=== PATIENT | male | born 1950 | race Caucasian/White ===

== ENCOUNTER → 2020-11-05 08:16 | Outpatient (REF) | payer MEDICARE, SELFPAY ==
--- NOTE | 2020-11-05 08:30 | CA_ITS ---
Transthoracic Echocardiogram Patient (Last, First, Middle): Telly Silverman, Gender: Male Date of : 1950 Age: 70 Procedure Date: 11/05/2020 Procedure Type: Transthoracic Echocardiogram Location: OP Height: 185.42 cm Weight: 98.43 kg BSA: 2.23 m2 Heart Rate: bpm BP: 134 / 84 mmHg Fire Sprinkler Inspector: MARIA DEL CARMEN Referring MD: Julito Diaz MD Symptoms: I25.10 CAD I10 HTN R06.02 SOB Study Quality: Fair ECG Rhythm: Artifact in EKG Conclusions: - The left ventricular systolic function is normal. The visually estimated ejection fraction is between 55-60%. - There is mild calcification of the aortic valve. - There is mild mitral annular calcification. - There is mild aortic annular dilatation measuring 4.00 cm and mild dilatation of the ascending aorta measuring 3.90 cm. - Small plaque is seen in the sino tubular ridge. Findings Left Ventricle Normal left ventricular cavity size. The left ventricular systolic function is normal. The visually estimated ejection fraction is between 55-60%. There is no evidence of regional wall motion abnormalities. Diastolic function is normal for age. There is mild septal and mild basal asymmetric hypertrophy. Right Ventricle Normal right ventricular cavity size and systolic function. Atria The left atrium is normal in size. The right atrium is normal in size. Aortic Valve There is a normal trileaflet aortic valve. There is mild calcification of the aortic valve. There is no aortic valve stenosis. There is no aortic valve regurgitation. Mitral Valve The mitral valve appears normal. There is mild mitral annular calcification. There is trace mitral valve regurgitation. There is no mitral valve stenosis. Pulmonic Valve The pulmonic valve was not well visualized. Tricuspid Valve Normal tricuspid valve structure. There is trace tricuspid valve regurgitation. The pulmonary artery systolic pressure is normal. Great Vessels The asc aorta is normal in size. There is mild aortic annular dilatation measuring 4.00 cm and mild dilatation of the ascending aorta measuring 3.90 cm. Small plaque is seen in the sino tubular ridge. Venous The inferior vena cava is normal in size and collapses greater than 50% with inspiration. Pericardium/Pleural There is no evidence of pericardial effusion. Prior Study Comparison Changes noted compared to prior study dated: 09/15/2018. See comments on great vessels. Measurements 2D Linear Measurements IVSd: 0.94 0.6-0.9/0.6-1.0 cm LVIDd: 3.93 3.9-5.3/4.2-5.9 cm LVIDd Index: 1.76 2.4-3.2/2.2-3.1 cm/m2 LVIDs: 2.89 2.0-3.6 cm LVPWd: 0.97 0.7-1.1 cm Ao Root: 4.00 2.1-3.5 cm LA Diam: 3.60 2.7-3.8/3.0-4.0 cm LAIDs Index: 1.61 1.5-2.3 cm/m2 LV Mass: 144.34 67-162/88-224 g LV Mass Index: 64.73 43-95/49-115 g/m2 LVOT Diam: 2.30 3.0+(-)1.3 cm 2D Systolic Function EF 4C: 51.50 >55% EF 2C: 51.50 >55% Mitral Valve MV Pk E: 0.88 MV PK A: 0.69 MV Decel Time: 194.00 E/A: 1.30 E'Lateral: 10.70 E'Medial: 8.12 E/E' Med: 10.90 E/E' Lat: 8.30 PHT: 57.00 MVA PHT: 3.86 Decel [place]: 4.56 Aortic Valve AoV Pk Steve: 1.29 AoV Mn Steve: 0.91 AoV VTI: 0.29 AoV Pk Grad: 7.00 Aov Mn Grad: 4.00 SONYA Cont.VTI: 3.20 LVOT LVOT Pk Steve: 1.00 LVOT Mn Steve: 0.65 LVOT VTI: 0.22 LVOT Pk Grad: 4.00 LVOT Mn Grad: 2.00 LVOT Diam: 2.30 LVOT Area: 4.15 Diastolic Function MV Pk E: 0.88 MV Pk A: 0.69 E/A: 1.30 E'Medial: 8.12 E/E' Med: 10.90 E' Laterial: 10.70 E/E' Lat: 8.30 Tricuspid Valve RA Press: 3.00 Great Vessels Aorta Ao Root-2D: 4.00 2.0-3.7 cm Ao Annulus: 4.00 1.4-2.6 cm Ao Asc: 3.90 2.1-3.4 cm Ao Arch: 3.20 Updated in Other Vendor System with Status of Final Julito Diaz MD electronically signed on 11/05/2020 11:21:21 AM with status of Final
== END ==
LOC: HO.CARD 08:16
PROVIDERS: PCP Internal Medicine; Visit Provider Internal Medicine
DX: I25.10 Atherosclerotic heart disease of native coronary artery without angina pectoris (principal); I10 Essential (primary) hypertension; R06.02 Shortness of breath
CPT/HCPCS: 93306

== ENCOUNTER 2020-11-13 09:34 | Outpatient (REF) | payer MEDICARE, SELFPAY ==
[2020-11-13 11:52] LABS: Cholesterol 136 mg/dL; HDL Cholesterol 44 mg/dL; LDL Cholesterol Calculated 77 mg/dl; Triglycerides 75 mg/dL
== END 2020-11-13 09:35 | disposition home or self-care (01) ==
LOC: HO.LAB 09:34
PROVIDERS: PCP Internal Medicine; Referring Provider Internal Medicine; Visit Provider Internal Medicine
DX: I25.10 Atherosclerotic heart disease of native coronary artery without angina pectoris (principal); I10 Essential (primary) hypertension; E78.5 Hyperlipidemia, unspecified; E11.9 Type 2 diabetes mellitus without complications
CPT/HCPCS: 36415; 80061; 93005; 99212

== ENCOUNTER 2021-02-04 10:51 | Outpatient (REF) | payer MEDICARE, SELFPAY ==
[2021-02-04 14:03] LABS: Prostate Specific Antigen 3.22 ng/mL (<0.05-4.0)
== END 2021-02-04 10:52 | disposition home or self-care (01) ==
LOC: HO.LAB 10:51
PROVIDERS: PCP Internal Medicine
DX: Z12.5 Encounter for screening for malignant neoplasm of prostate (principal); R39.15 Urgency of urination; R39.11 Hesitancy of micturition
CPT/HCPCS: 36415; 84153; 99202

== ENCOUNTER → 2021-02-28 08:31 | Outpatient (BNVA) | payer MEDICARE, SELFPAY | PROVIDERS: PCP Internal Medicine | DX: R39.11 Hesitancy of micturition (principal) | CPT/HCPCS: Q3014 ==

== ENCOUNTER 2021-03-25 09:18 | Outpatient (REF) | payer MEDICARE, SELFPAY ==
[2021-03-25 10:51] LABS: Alanine Aminotransferase 24 U/L (0-40); Albumin Level 4.1 g/dL (3.5-5.0); Alkaline Phosphatase 93 U/L (39-117); Anion Gap 9 (12-20); Aspartate Amino Transferase 16 U/L (5-37); Bilirubin Total 0.8 mg/dL (0.0-1.0); Blood Urea Nitrogen 22 mg/dL (9-16); Calcium 9.4 mg/dL (8.4-10.2); Carbon Dioxide 30 mmol/L (22-29); Chloride 105 mmol/L (96-108); Estimated Glomerular Filt Rate > 60; Glucose Fasting 114 mg/dL (60-99); Sodium 140 mmol/L (135-145); Total Protein 6.2 g/dL (6.5-8.0)
[2021-03-25 12:32] LABS: Prostate Specific Antigen Scr 3.38 ng/mL (<0.05-4.0)
== END 2021-03-25 09:19 | disposition home or self-care (01) ==
LOC: HO.LAB 09:18
PROVIDERS: PCP Internal Medicine; Visit Provider Nurse Practitioner Family
DX: Z13.1 Encounter for screening for diabetes mellitus (principal); Z12.5 Encounter for screening for malignant neoplasm of prostate; R35.1 Nocturia
CPT/HCPCS: 36415; 80053; 84153

== ENCOUNTER 2021-07-09 08:50 | Outpatient (REF) | payer MEDICARE, SELFPAY ==
[2021-07-09 09:48] LABS: Cholesterol 138 mg/dL; Glucose Fasting 113 mg/dL (60-99); HDL Cholesterol 42 mg/dL; LDL Cholesterol Calculated 81 mg/dl; Triglycerides 79 mg/dL
== END 2021-07-09 08:51 | disposition home or self-care (01) ==
LOC: HO.LAB 08:50
PROVIDERS: PCP Internal Medicine; Visit Provider Internal Medicine
DX: E11.65 Type 2 diabetes mellitus with hyperglycemia (principal)
CPT/HCPCS: 36415; 80061; 82947

== ENCOUNTER 2021-07-30 10:28 | Outpatient (REF) | payer MEDICARE, SELFPAY | END 2021-07-30 10:29 | disposition home or self-care (01) | LOC: HO.LAB 10:28 | PROVIDERS: PCP Internal Medicine; Visit Provider Internal Medicine | DX: Z20.822 Contact with and (suspected) exposure to COVID-19 (principal); R09.89 Other specified symptoms and signs involving the circulatory and respiratory systems | CPT/HCPCS: U0003; U0005 ==

== ENCOUNTER 2021-08-02 10:50 | Outpatient (REF) | payer MEDICARE, SELFPAY ==
--- NOTE | ~2021-08-02 | XR_ITS ---
EXAMINATION: XR CHEST CLINICAL INFORMATION: Cough. COMPARISON: Previous chest x-ray July 2018 TECHNIQUE: 2 views of the chest were obtained. FINDINGS: The cardiac and mediastinal contours are stable. There is a 1 cm nodular density at the right lung base overlying the right posterior 9th rib. This may represent a nipple shadow. The lungs are clear. There is no pleural effusion or pneumothorax. Bony structures are unremarkable. XR/XR chest 2V IMPRESSION: 1 cm nodular density at the right lung base. Followup chest x-ray with nipple markers recommended. Otherwise unremarkable exam.
== END 2021-08-02 10:51 | disposition home or self-care (01) ==
LOC: HO.XRAY 10:50
PROVIDERS: PCP Internal Medicine; Visit Provider Internal Medicine
DX: R05.9 Cough, unspecified (principal)
CPT/HCPCS: 71046

== ENCOUNTER 2021-08-07 09:17 | Outpatient (REF) | payer MEDICARE, SELFPAY ==
--- NOTE | ~2021-08-07 | XR_ITS ---
EXAMINATION: XR CHEST CLINICAL INFORMATION: Cough COMPARISON: Previous chest x-ray 08/02/2021 TECHNIQUE: 2 views of the chest were obtained. FINDINGS: The cardiac and mediastinal contours are stable. The nodule at the right lung base corresponds to a nipple shadow. The lungs are otherwise clear. There is no pleural effusion or pneumothorax. Bony structures are unremarkable. XR/XR chest 2V IMPRESSION: No evidence for acute disease in the chest.
== END 2021-08-07 09:18 | disposition home or self-care (01) ==
LOC: HO.XRAY 09:17
PROVIDERS: PCP Internal Medicine; Visit Provider Internal Medicine
DX: R05.9 Cough, unspecified (principal)
CPT/HCPCS: 71046

== ENCOUNTER → 2021-09-05 08:37 | Outpatient (BNVA) | payer MEDICARE, SELFPAY | PROVIDERS: PCP Internal Medicine; Visit Provider Urology | DX: R39.11 Hesitancy of micturition (principal); R35.1 Nocturia; N32.0 Bladder-neck obstruction | CPT/HCPCS: 99212 ==

== ENCOUNTER 2021-09-30 09:18 | Outpatient (REF) | payer MEDICARE, SELFPAY ==
[2021-09-30 10:12] LABS: Estimated Average Glucose 105 mg/dL; Hemoglobin A1C 130.6588 umol/L; Hemoglobin A1c % 5.3 %
[2021-09-30 10:22] LABS: Cholesterol 140 mg/dL; Glucose Fasting 107 mg/dL (60-99); HDL Cholesterol 42 mg/dL; LDL Cholesterol Calculated 84 mg/dl; Triglycerides 72 mg/dL
== END 2021-09-30 09:19 | disposition home or self-care (01) ==
LOC: HO.LAB 09:18
PROVIDERS: PCP Internal Medicine; Visit Provider Internal Medicine
DX: Z00.00 Encounter for general adult medical examination without abnormal findings (principal); E11.65 Type 2 diabetes mellitus with hyperglycemia
CPT/HCPCS: 36415; 80061; 82947; 83036

== ENCOUNTER → 2021-11-14 09:48 | Outpatient (BNVA) | payer MEDICARE, SELFPAY | PROVIDERS: PCP Internal Medicine; Referring Provider Internal Medicine; Visit Provider Internal Medicine | DX: I25.10 Atherosclerotic heart disease of native coronary artery without angina pectoris (principal); I77.810 Thoracic aortic ectasia; I10 Essential (primary) hypertension; E78.5 Hyperlipidemia, unspecified | CPT/HCPCS: 93005; 99212 ==

== ENCOUNTER → 2022-03-14 08:15 | Outpatient (BNVA) | payer MEDICARE, SELFPAY | PROVIDERS: PCP Internal Medicine; Visit Provider Urology | DX: N32.0 Bladder-neck obstruction (principal); R35.1 Nocturia | CPT/HCPCS: 51798; 99212 ==

== ENCOUNTER → 2022-11-03 07:45 | Outpatient (REF) | payer MEDICARE, SELFPAY ==
--- NOTE | 2022-11-03 07:48 | CA_ITS ---
Transthoracic Echocardiogram Patient (Last, First, Middle): Telly Silverman, Gender: Male Date of : 1950 Age: 72 Procedure Date: 11/03/2022 Procedure Type: Transthoracic Echocardiogram Location: OP Height: 185.42 cm Weight: 93.9 kg BSA: 2.18 m2 Heart Rate: 75 bpm BP: 134 / 82 mmHg Lodging Facilities Manager: TYRA Referring MD: Julito Diaz MD Roll Shop Supervisor: Keith Sharpe MD Symptoms: I77.810 - Thoracic aortic ectasia Study Quality: Adequate ECG Rhythm: Sinus Conclusions: - 1. Normal LV systolic function with impaired relaxation filling pattern 2. Normal cardiac valvular Dopplers 3. Normal RV systolic pressure 4. Mildly dilated ascending aorta at 4.1 cm 5. No pericardial effusion Findings Left Ventricle Normal left ventricular size, thickness, and systolic function. The visually estimated ejection fraction is between 55-60%. Spectral Doppler is indicative of an impaired relaxation filling pattern. E/E prime ratio is between 8 and 15 consistent with indeterminate filling pressures. Right Ventricle Normal right ventricular cavity size and systolic function. Atria Both atria are normal in size. Interatrial shunt cannot be excluded. Aortic Valve There is mild calcification of the aortic valve. There is mild thickening of the aortic valve. There is no aortic valve stenosis. There is no aortic valve regurgitation. Mitral Valve There is mild anterior and posterior mitral leaflet thickening. There is trace mitral valve regurgitation. There is no mitral valve stenosis. Pulmonic Valve The pulmonic valve is likely normal. Tricuspid Valve Normal tricuspid valve structure. There is trace tricuspid valve regurgitation. The right ventricular systolic pressure is normal. The right ventricular systolic pressure is 18 mmHg. Normal right atrial pressure. There is no evidence of pulmonary hypertension. Great Vessels The pulmonary artery was not well visualized. There is mild dilatation of the ascending aorta measuring 4.10 cm. Venous The inferior vena cava is normal in size and collapses greater than 50% with inspiration. Pericardium/Pleural There is no evidence of pericardial effusion. Prior Study Comparison No significant change compared to prior study dated: 11/05/2020. Measurements 2D Linear Measurements IVSd: 0.73 0.6-0.9/0.6-1.0 cm LVIDd: 5.05 3.9-5.3/4.2-5.9 cm LVIDd Index: 2.32 2.4-3.2/2.2-3.1 cm/m2 LVIDs: 3.63 2.0-3.6 cm LVPWd: 0.63 0.7-1.1 cm LA Diam: 3.70 2.7-3.8/3.0-4.0 cm LAIDs Index: 1.70 1.5-2.3 cm/m2 LV Mass: 139.97 67-162/88-224 g LV Mass Index: 64.21 43-95/49-115 g/m2 LVOT Diam: 2.50 3.0+(-)1.3 cm 2D Systolic Function EF 4C: 54.30 >55% EF 2C: 64.80 >55% EF BiP: 59.20 >55% Mitral Valve MV Pk E: 0.72 MV PK A: 0.62 MV Decel Time: 190.00 E/A: 1.20 E'Lateral: 8.16 E'Medial: 7.94 E/E' Med: 9.10 E/E' Lat: 8.80 PHT: 56.00 MVA PHT: 3.93 Decel [place]: 3.79 Aortic Valve AoV Pk Steve: 1.23 AoV Pk Grad: 6.00 SONYA: 4.00 LVOT LVOT Pk Steve: 1.02 LVOT Mn Steve: 0.63 LVOT VTI: 0.20 LVOT Pk Grad: 4.00 LVOT Mn Grad: 2.00 LVOT Diam: 2.50 LVOT Area: 4.91 Diastolic Function MV Pk E: 0.72 MV Pk A: 0.62 E/A: 1.20 E'Medial: 7.94 E/E' Med: 9.10 E' Laterial: 8.16 E/E' Lat: 8.80 Right Ventricle TAPSE (mm): 21.90 TVS' Steve: 12.80 Tricuspid Valve TR Pk Steve: 1.91 TR Pk Grad: 15.00 RA Press: 3.00 RVSP: 18.00 Great Vessels Aorta Sinus of Valsalva: 3.80 2.0-3.5 cm Ao Asc: 4.10 2.1-3.4 cm Ao Arch: 3.40 Pulmonary Veins Pulm Vein S/D 1.30 Pulmonary Valve PV Pk Steve: 0.73 Peak PV Grad: 2.00 Updated in Other Vendor System with Status of Final Keith Sharpe MD electronically signed on 11/03/2022 11:27:49 AM with status of Final
== END ==
LOC: HO.CARD 07:45
PROVIDERS: PCP Internal Medicine; Visit Provider Internal Medicine
DX: I77.810 Thoracic aortic ectasia (principal)
CPT/HCPCS: 93306

== ENCOUNTER → 2022-11-20 09:42 | Outpatient (BNVA) | payer MEDICARE, SELFPAY | PROVIDERS: PCP Internal Medicine; Referring Provider Internal Medicine; Visit Provider Internal Medicine | DX: I25.10 Atherosclerotic heart disease of native coronary artery without angina pectoris (principal); I10 Essential (primary) hypertension; I77.810 Thoracic aortic ectasia; E78.5 Hyperlipidemia, unspecified | CPT/HCPCS: 93005; 99212 ==

== ENCOUNTER 2023-03-02 08:23 | Outpatient (REF) | payer MEDICARE, SELFPAY ==
[2023-03-02 09:50] LABS: Prostate Specific Antigen 1.71 ng/mL (<0.05-4.0)
== END 2023-03-02 08:24 | disposition home or self-care (01) ==
LOC: HO.LAB 08:23
PROVIDERS: PCP Internal Medicine; Visit Provider Urology
DX: Z12.5 Encounter for screening for malignant neoplasm of prostate (principal); N32.0 Bladder-neck obstruction
CPT/HCPCS: 36415; 84153

== ENCOUNTER 2023-03-17 08:27 | Outpatient (AMB) | payer MEDICARE, SELFPAY ==
--- NOTE | 2023-03-17 08:42 | A.OFFVIS_ITS ---
Intake Intake Visit Reasons: 1Y PVR/PSA(set) Intake Note: Patient is present for PVR/PSA Urology Med: Finasteride, Tamsulosin Antibiotic Allergy: None Blood Thinner: Aspirin [facility]acy: [facility] PVR: 0ml Allergies No Known Allergies Allergy (Verified 03/17/23 08:44) Medication List - Last Reconciled 03/17/23 by Amado Meneses MD amlodipine 2.5 mg PO DAILY aspirin (Adult Low Dose Aspirin) 81 mg PO DAILY atorvastatin 80 mg PO DAILY ezetimibe 10 mg PO DAILY finasteride 5 mg PO DAILY 90 days losartan-hydrochlorothiazide 100-25 mg 1 tab PO DAILY omeprazole 10 mg PO DAILY tamsulosin (Flomax) 0.4 mg PO BEDTIME 90 days timolol 0.5% 1 drp ophthalmic (eye) BID HPI HPI Comments History of Present Illness Details Telly is a pleasant male. He is a patient Dr. Cash. He is seen for the following urologic conditions - lower urinary tract symptoms Combination therapy PVR 0 cc Voiding parameters well-controlled nocturia 1-2 PSA low May switch finasteride to Thursday, Thursday, Thursday If stable next year may try coming off Flomax Lower urinary tract symptoms Initial evaluation reported urinary hesitancy and weakness of stream - Nocturia x2 Normalization of urinary parameters with medication Concurrent diagnoses hypertension with diuretic treatment Initial PVR 0 PSA 03/26 3.4, 02/25 1.7 Current medication Flomax 0.4 mg finasteride 5 mg Therapeutic plan 12 month follow-up [facility] Medical History Screening for diabetes mellitus Urinary hesitancy Urinary urgency Other and unspecified hyperlipidemia Atherosclerotic cardiovascular disease Hypertension Surgical History History of discectomy H/O endoscopy History of colonoscopy History of eye surgery History of colonoscopy History of lumbar surgery History of cholecystectomy Family History Father No problems noted. Mother No problems noted. Sister No problems noted. Social History Housing: House Alcohol intake: never Patient Tobacco Use Status: Former Tobacco user Quit Date: 30 years e-Cigarette/Vaping Use: Never Used Second Hand Smoke Exposure: Yes service: No Current occupational status: retired Current occupational exposures/hazards: No Cognitive needs: No Hearing needs: No Vision needs: Yes (glasses) Review of Systems Const Denies chills and Denies fever(s) Card Reports no additional complaints and Denies syncope Resp Denies cough GI Denies abdominal pain and Denies heartburn Reports as per HPI and Denies change in libido Neuro Denies syncope Psych Denies change in libido Endo Denies change in libido Physical Exam Const General: cooperative, healthy appearing, comfortable and no acute distress Orientation/consciousness: patient oriented x3 HEENT Face and sinus: Yes normal facial exam Mouth: moist mucous membranes Neck Neck: Yes normal visual inspection, Yes full ROM and Yes trachea midline Chest Chest palpation & inspection: normal inspection of the chest Resp Effort & Inspection: normal respiratory effort, able to speak in complete sentences and no respiratory distress GI Inspection: Yes normal to inspection Back/Spine/Pelvis Cervical Spine: normal cervical lordosis Thoracic/Lumbar Spine: thoracic and lumbar spine normal to inspection Skin General skin exam: no rashes or lesions noted Neuro General: patient oriented x3, gait normal, tone normal and moves all extremities Extrem General: Yes normal to inspection and Yes capillary refill normal Office Procedures Post Void Residual Post Residual Void Post Void Residual (PVR): 0 [id number] Void Residual by ultrasound Results AMB Urinalysis, Automated UA Leukoctes 0 Carter/uL Last Edit by KORI Tobar on 03/17/23 08:48 UA Nitrite Negative Last Edit by KORI Tobar on 03/17/23 08:48 UA Urobilinogen 0.2 mg/dL Last Edit by KORI Tobar on 03/17/23 08:4 8 UA Protein 15 mg/dL Last Edit by KORI Tobar on 03/17/23 08:48 UA pH 6.0 Last Edit by KORI Tobar on 03/17/23 08:48 UA Blood 0 Jorge/uL Last Edit by KORI Tobar on 03/17/23 08:48 UA Specific [place] 1.020 Last Edit by KORI Tobar on 03/17/23 08: 48 UA Ketone Negative Last Edit by KORI Tobar on 03/17/23 08:48 UA Bilirubin 0 mg/dL Last Edit by KORI Tobar on 03/17/23 08:48 UA Glucose 0 mg/dL Last Edit by KORI Tobar on 03/17/23 08:48 Results Reviewed Results Reviewed: Laboratory Last Values Urine pH (Auto) 6.0 03/17/23 08:45 Specific [place] (Auto) 1.020 03/17/23 08:45 Urine Protein (Auto) 15 mg/dL 03/17/23 08:45 Glucose (UA)(Auto) 0 mg/dL 03/17/23 08:45 Urine Ketones (Auto) Negative 03/17/23 08:45 Urine Blood (Auto) 0 Jorge/uL 03/17/23 08:45 Urine Nitrite (Auto) Negative 03/17/23 08:45 Urine Bilirubin (Auto) 0 mg/dL 03/17/23 08:45 Urine Urobilinogen (Auto) 0.2 mg/dL 03/17/23 08:45 Leukocyte Esterase (Auto) 0 Carter/uL 03/17/23 08:45 Assessment & Plan Assessment & Plan (1) Bladder outlet obstruction: Code(s): N32.0 - Bladder-neck obstruction (2) Nocturia more than twice per night: Code(s): R35.1 - Nocturia Plan 12 month follow-up nurse practitioner Orders: Orders AMB Urinalysis Automated Today Z13.9 - Encounter for screening, unspecified AMB Post Void Residual by ultrasound Today R35.1 - Nocturia Medications: Refilled tamsulosin (Flomax) 0.4 mg PO BEDTIME 90 caps 3RF 90 days N32.0 - Bladder-neck obstruction finasteride 5 mg PO DAILY 90 tabs 3RF 90 days N13.8 - Other obstructive and reflux uropathy, N32.0 - Bladder-neck obstruction, N40.1 - Benign prostatic hyperplasia with lower urinary tract symptoms, R33.9 - Retention of urine, unspecified Patient Instructions: Imaging studies, laboratory and physical exam results were discussed and reviewed in detail. No major barriers to patient understanding were identified. An opportunity to ask questions regarding the treatment plan was provided. All questions were answered. The patient expressed understanding and agreement with the above treatment plan. The patient is aware they should contact our office by phone for worsening of their current condition or the appearance of new urologic symptoms. Compliance is encouraged with any medications and followup testing that is ordered. It is a privilege to participate in the urologic care of your patient. If you have any questions or concerns regarding treatment for the above conditions, or other urologic issues, please do not hesitate to contact me. The office telephone contact is [phone]. This note is constructed using voice recognition software. While every effort has been made to ensure accuracy grade school teacher errors may have been included. Yours sincerely, Dr Amado Meneses MD, [facility] - Urology Providers of Expert, Compassionate Care for the Genitourinary System Coding Level of Care Code Est Pt Level 4 (63442) Diagnoses Bladder outlet obstruction N32.0 Nocturia more than twice per night R35.1 CPT Codes Post Residual Void - PVR CPT Code: 78761-Gbqj Void Residual by ultrasound ([id number])
== END 2023-03-17 08:56 | disposition home or self-care (01) ==
PROVIDERS: PCP Internal Medicine; Visit Provider Urology
DX: N32.0 Bladder-neck obstruction (principal); R35.1 Nocturia; Z13.9 Encounter for screening, unspecified
CPT/HCPCS: 99213

== ENCOUNTER → 2023-03-17 08:27 | Outpatient (BNVA) | payer MEDICARE, SELFPAY | PROVIDERS: Visit Provider Urology | DX: N32.0 Bladder-neck obstruction (principal); R35.1 Nocturia | CPT/HCPCS: 51798; 81003; 99212 ==

== ENCOUNTER 2023-03-20 08:42 | Outpatient (AMB) | payer MEDICARE, SELFPAY ==
[2023-03-20 08:45] VITALS: BP 122/80; PULSE 71; O2SAT 98; BMI 26.6
--- NOTE | 2023-03-20 08:45 | A.OFFVIS_ITS ---
Intake Vital Signs 03/20/23 08:45 Height 6 ft 1 in Weight 202 lb BMI 26.6 BP 122/80 Blood Pressure Location Lt brachial Position Sitting Pulse 71 Pulse Source Pulse Oximeter Temp Source Skin Pulse Oximetry (%) 98 Oxygen Delivery Method Room Air Intake Visit Reasons: SAWV Intake Note: Patient is here for an Annual Wellness Visit. Allergies No Known Allergies Allergy (Verified 03/20/23 09:08) Medication List - Last Reconciled 03/20/23 by WILLIE Mayer amlodipine 2.5 mg PO DAILY aspirin (Adult Low Dose Aspirin) 81 mg PO DAILY atorvastatin 80 mg PO DAILY ezetimibe 10 mg PO DAILY finasteride 5 mg PO DAILY 90 days losartan-hydrochlorothiazide 100-25 mg 1 tab PO DAILY omeprazole 10 mg PO DAILY tamsulosin (Flomax) 0.4 mg PO BEDTIME 90 days timolol 0.5% 1 drp ophthalmic (eye) BID HPI SAWV HPI Details Patient is a 72-year-old male who presents today for subsequent [facility] ess visit. Patient of Dr. Mccann. Today we discussed patient's need for tetanus vaccine. Up-to-date with health preventative screenings. [place] of care was reviewed with the patient and he was provided with a screening schedule. End of life planning was discussed with the patient and he was provided with healthcare proxy and MOLST forms. In addition, patient reports bilateral ear ringing sensation which is intermittent for the past 1 year L>R and would like evaluation for this. [facility] Medical History Screening for diabetes mellitus Urinary hesitancy Urinary urgency Other and unspecified hyperlipidemia Atherosclerotic cardiovascular disease Hypertension Surgical History History of discectomy H/O endoscopy History of colonoscopy History of eye surgery History of colonoscopy History of lumbar surgery History of cholecystectomy Family History Father No problems noted. Mother No problems noted. Sister No problems noted. Social History Housing: House Alcohol intake: never Patient Tobacco Use Status: Former Tobacco user Quit Date: 30 years e-Cigarette/Vaping Use: Never Used Second Hand Smoke Exposure: Yes service: No Current occupational status: retired Current occupational exposures/hazards: No Cognitive needs: No Hearing needs: No Vision needs: Yes (glasses) Questionnaire Medicare Wellness Checkup [age] What gender do you identify with?: male During the past 4 weeks, how much have you been bothered by emotional problems such as feeling anxious, depressed, irritable, sad or downhearted, and blue?: slightly During the past 4 weeks, has your physical & emotional health limited your social activities with family, friends, neighbors, or groups?: not at all During the past 4 weeks, how much bodily pain have you generally had?: very mild pain During the past 4 weeks, was someone available to help you if you needed & wanted help?: no, not at all During the past 4 weeks, what was the hardest physical activity you could do for at least 2 minutes?: moderate Can you get to places out of walking distance without help? (For eg., can you travel alone on buses, taxis or drive your car?): Yes Can you go shopping for groceries or clothes without someone's help?: Yes Can you prepare your own meals?: Yes Can you do your housework without help?: Yes Because of any health problems, do you need the help of another person with your personal care needs such as eating, bathing, dressing or getting around the house?: No Can you handle your own money without help?: Yes During the past 4 weeks, how would you rate your health in general?: very good During the past 4 weeks how have things been going for you?: pretty well Are you having difficulties driving your car?: no Do you always fasten your seat belt when you are in a car?: yes, usually During past 4 weeks, have you been bothered by the following: never: Sexual problems?, Trouble eating well?, Teeth or denture problems?, Problems using the telephone? and Tiredness or fatigue? and seldom: Falling or dizzy when standing up Have you fallen 2 or more times in the past year?: No Are you afraid of falling?: No Are you a smoker?: no During the past 4 weeks, how many drinks of wine, beer, or other alcoholic beverages did you have?: no alcohol at all Do you exercise for about 20 minutes 3 or more times a week?: yes, some of the time Have you been given information to help with the following?: no: Hazards in your house that might hurt you? and no: Keeping track of your medications? How often do you have trouble taking medicines the way you have been told to take them?: I always take medicine as prescribed How confident are you that you can control & manage most of your health problems?: very confident What is your race?: White Mini Mental State Exam (MMSE) Orientation What is the (year) (season) (date) (day) (month)?: year, season, date, day and month Score Score: 5 Activity of Daily Living Bathing - sponge bath, tub bath or shower: receives no assistance (gets in/out by self, if usual bathing means Dressing - getting clothes from closets & drawers, including inner/outer garments & fasteners.: gets clothes & gets completely dressed without help Toileting - going to the 'toilet room' for urine/bowel elimination & cleaning self/arranging clothes: goes to toilet room, cleans self, arranges clothes without help Transfer: moves in & out of bed and chair without help (may use support object) Continence: controls urination/bowel movements completely by self Feeding: feeds self without help Total Score: 0 Information obtained from: patient Using telephone: independent Traveling: independent Shopping: independent Preparing meals: independent Housework: independent Taking medicine: independent Managing money: independent PHQ-9 Over the last 2 weeks, how often have you been bothered by any of the following problems? 1. Little interest or pleasure in doing things: not at all 2. Feeling down, depressed, or hopeless: not at all 3. Trouble falling or staying asleep, or sleeping too much: not at all 4. Feeling tired or having little energy: not at all 5. Poor appetite or overeating: not at all 6. Feeling bad about yourself - or that you are a failure or have let yourself or your family down: not at all 7. Trouble concentrating on things, such as reading the newspaper or watching television: not at all 8. Moving or speaking so slowly that other people could have noticed. Or the opposite - being so fidgety or restless that you have been moving around a lot more than usual: not at all 9. Thoughts that you would be better off or of hurting yourself in some way: not at all Total score: 0 Depression Screening Interpretation: Negative 10635 - PHQ-9 Billing: Yes Source: Developed by Drs. Rajesh Foster, Sabina Arora, Thiago Zavala and colleagues, with an educational lance from [employer]. Review of Systems ENT Reports as per HPI Physical Exam Vital Signs: Last Vital Signs Pulse 71 03/20/23 08:45 BP 122/80 03/20/23 08:45 Pulse Ox 98 03/20/23 08:45 Oxygen Delivery Method Room Air 03/20/23 08:45 BMI result Body Mass Index 26.6 Const General: cooperative and no acute distress Orientation/consciousness: patient oriented x3 HEENT Other: Whisper test: pass Ears: TM's normal bilaterally Neuro Other: Balance: Normal Get up and walk: able to Romberg: negative Tandem gait: able to General: patient oriented x3 Immunizations tetanus-diphtheria toxoids-Td 2 Lf unit-2 Lf unit/0.5 mL IM suspension Performing Provider: WILLIE Mayer [facility] Administered by: KORI Denton on 03/20/23 09:20 Dose Route Admin Location Dispensed Lot Number Expiration Date NDC Patent Prosecution Paralegal 0.5 mL IM Left Deltoid 0.5 mL [id number] 11/09/23 [address]-0 [employer] VIS Given Date VIS Provided VIS Publication Date 03/20/23 Single Vaccine 21 Eligibility Eligibility Date Funding Source Not [facility] Eligible 03/20/23 [facility] funds Assessment & Plan Assessment & Plan (1) Adult general medical exam: Code(s): Z00.00 - Encounter for general adult medical examination without abnormal findings (2) Barretts esophagus: Code(s): K22.70 - Koroma's esophagus without dysplasia Plan: Patient is on omeprazole daily and is followed by a counter installer. (3) Glaucoma: Code(s): H40.9 - Unspecified glaucoma Plan: Patient is on timolol eyedrops and is followed by an fast food shift lead. (4) Essential hypertension: Code(s): I10 - Essential (primary) hypertension Plan: Continue current treatment. Reinforced low-sodium diet and exercise as tolerated. (5) Atherosclerotic cardiovascular disease: Code(s): I25.10 - Atherosclerotic heart disease of [place] coronary artery without angina pectoris Plan: Continue to follow-up with cardiology as scheduled. (6) Bladder outlet obstruction: Code(s): N32.0 - Bladder-neck obstruction Plan: Continue current treatment Continue to follow-up with urology Dr. Meneses (7) Tinnitus of both ears: Code(s): H93.13 - Tinnitus, bilateral Plan: ENT referral for an evaluation and treatment (8) Hyperlipidemia: Code(s): E78.5 - Hyperlipidemia, unspecified Plan: Continue current treatment Low-cholesterol diet Orders: Orders Td State Immunization Today Z23 - Encounter for immunization Referrals Ear/Nose/Throat Referral H93.13 - Tinnitus, bilateral Quality Reporting (2019) Depression/Bipolar (159/160/161/177) PHQ-9: Total score: 0 Coding Level of Care Code Medicare Subsequent (G0439) Diagnoses Adult general medical exam Z00.00 Barretts esophagus K22.70 Glaucoma H40.9 Essential hypertension I10 Atherosclerotic cardiovascular disease I25.10 Bladder outlet obstruction N32.0 Tinnitus of both ears H93.13 Hyperlipidemia E78.5 CPT Codes Advance Care Planning - Time spent: 1-15 minutes, not on file ([id number]) Advance Care Planning Date of discussion: 03/20/23 Who was present: pt and accounting system expert Forms completed: None Time spent: 1-15 minutes, not on file Actual minutes spent: 3 Did not discuss due to Cultural/Spiritual beliefs: No
== END 2023-03-20 09:28 | disposition home or self-care (01) ==
PROVIDERS: Visit Provider Nurse Practitioner Family
DX: Z00.00 Encounter for general adult medical examination without abnormal findings (principal); K22.70 Barrett's esophagus without dysplasia; I10 Essential (primary) hypertension; Z23 Encounter for immunization; H40.9 Unspecified glaucoma; I25.10 Atherosclerotic heart disease of native coronary artery without angina pectoris; N32.0 Bladder-neck obstruction; H93.13 Tinnitus, bilateral; E78.5 Hyperlipidemia, unspecified
CPT/HCPCS: 1124F; 90471; 90714; G0439

== ENCOUNTER 2023-09-16 08:10 | Outpatient (AMB) | payer MEDICARE, SELFPAY ==
--- NOTE | 2023-09-16 08:30 | MHC.PC.OV ---
Vital Signs 09/16/23 08:32 Height 6 ft 1 in Weight 202 lb 6 oz BMI 26.7 BP 150/90 H Blood Pressure Location Lt brachial Position Sitting Pulse 75 Pulse Source Pulse Oximeter Pulse Oximetry (%) 96 Oxygen Delivery Method Room Air Intake Visit Reasons: HLD Intake Note: Patient is here to follow up on HLD. Manager Hiv Required: No Delivery And Installation Subcontractor: Not Required per policy Accompanied by: Self / Same As Patient Allergies No Known Allergies Allergy (Verified 09/16/23 08:32) Medication List - Last Reconciled 09/16/23 by Mele Mccann MD amlodipine 2.5 mg PO DAILY aspirin (Adult Low Dose Aspirin) 81 mg PO DAILY atorvastatin 80 mg PO DAILY ezetimibe 10 mg PO DAILY finasteride 5 mg PO DAILY 90 days losartan-hydrochlorothiazide 100-25 mg 1 tab PO DAILY omeprazole 10 mg PO DAILY tamsulosin (Flomax) 0.4 mg PO BEDTIME 90 days timolol 0.5% 1 drp ophthalmic (eye) BID Tobacco use date assessed: 09/16/23 Fall risk assessment: No Falls in past year Last assessed Fall Risk: 09/16/23 Dental Screening Dental Screen Date: 09/16/23 Did you have a dental visit in the last 12 months?: No Did you have a dental problem in the last 6 months where you did not have access to dental care?: No Was dental information given to patient?: No (Dentures) HPI HLD HPI Details HTN Hyperlip and gerd on rx; doing well; BP has been high in the morning PFSH Medical History Screening for diabetes mellitus Urinary hesitancy Urinary urgency Other and unspecified hyperlipidemia Atherosclerotic cardiovascular disease Hypertension Surgical History History of discectomy H/O endoscopy History of colonoscopy History of eye surgery History of colonoscopy History of lumbar surgery History of cholecystectomy Family History Father No problems noted. Mother No problems noted. Sister No problems noted. Social History Housing: House Alcohol intake: never Patient Tobacco Use Status: Former Tobacco user Quit Date: 30 years e-Cigarette/Vaping Use: Never Used Second Hand Smoke Exposure: Yes service: No Current occupational status: retired Current occupational exposures/hazards: No Cognitive needs: No Hearing needs: No Vision needs: Yes (glasses) Questionnaire PHQ-9 Over the last 2 weeks, how often have you been bothered by any of the following problems? 1. Little interest or pleasure in doing things: not at all 2. Feeling down, depressed, or hopeless: not at all 3. Trouble falling or staying asleep, or sleeping too much: not at all 4. Feeling tired or having little energy: not at all 5. Poor appetite or overeating: not at all 6. Feeling bad about yourself - or that you are a failure or have let yourself or your family down: not at all 7. Trouble concentrating on things, such as reading the newspaper or watching television: not at all 8. Moving or speaking so slowly that other people could have noticed. Or the opposite - being so fidgety or restless that you have been moving around a lot more than usual: not at all 9. Thoughts that you would be better off or of hurting yourself in some way: not at all Total score: 0 Depression Screening Interpretation: Negative Depression Screening Done: Yes 26938 - PHQ-9 Billing: Yes Source: Developed by Drs. Rajesh Foster, Sabina Arora, Thiago Zavala and colleagues, with an educational lance from [employer]. Thrive Questionnaire Date Thrive assessed: 09/16/23 I am a: Patient What is your living situation today?: I have a steady place to live Within the past 12 months, did the food you bought not last and you didn't have the money to get more?: Never true Within the past 12 months, did you worry whether your food would run out before you got money to buy more?: Never true Do you have trouble paying for medicines?: No Do you have trouble getting transportation to medical appointments?: No Do you have trouble paying your heating and electricity bill?: No Do you have trouble taking care of your child, family member or friend?: No Do you have trouble with day-to-day activities such as bathing, preparing meals, shopping, managing finances, etc.?: No Are you currently unemployed and looking for a job?: No Are you interested in more education?: No Currently or been in a relationship where the following occur: no concerns reported THRIVE Score: 0 AUDIT C Alcohol Use Questionnaire (AUDIT-C) 1. How often do you have a drink containing alcohol?: Never Total Score: 0 WILDA-7 AMB Questionnaire WILDA-7 Date WILDA - 7 assessed: 09/16/23 Feeling nervous, anxious, or on edge: 0 = Not at all Not being able to stop or control worryin = Not at all Worrying too much about different things: 0 = Not at all Trouble relaxin = Not at all Being so restless that it is hard to sit still: 0 = Not at all Becoming easily annoyed or irritable: 0 = Not at all Feeling afraid as if something awful might happen: 0 = Not at all Total WILDA-7 score (0-4 normal; 5-9 mild; 10-14 moderate; 15-21 severe): 0 Source: Developed by Drs. Rajesh Foster, Sabina Arora, Thiago Zavala and colleagues, with an educational lance from [employer]. WILAD-7 Assessment Billing WILDA-7 Assessment Tool: WILDA-7 Assessment 46495 Review of Systems Const Denies chills, Denies headache(s) and Denies weight loss ENT Denies headache(s) Card Denies chest pain, Denies syncope, Denies irregular heart rhythm and Denies dyspnea Resp Denies chest congestion, Denies cough and Denies dyspnea GI Denies abdominal pain, Denies change in stool character, Denies nausea and Denies vomiting Musc Denies deformity and Denies joint swelling Neuro Denies syncope and Denies headache(s) Physical exam (Primary Care) Vital Signs: Last Vital Signs Pulse 75 09/16/23 08:32 BP 150/90 H 09/16/23 08:32 Pulse Ox 96 09/16/23 08:32 Oxygen Delivery Method Room Air 09/16/23 08:32 BMI result Body Mass Index 26.7 Tobacco/Smoking Status: Tobacco use Status Tobacco use date assessed 09/16/23 09/16/23 08:36 Patient Tobacco Use Status Former Tobacco user 09/16/23 08:36 Tobacco use type 11/20/22 10:17 e-Cigarette/Vaping Use Never Used 09/16/23 08:36 PHQ-9: PHQ-9 Score PHQ-9: Total score 0 09/16/23 08:36 Depression Screening Interpretation: Negative Thrive Assessment: Date of Thrive Assessment Date Thrive assessed 09/16/23 09/16/23 08:36 Currently or been in a relationship where the following occur: no concerns reported Const General: cooperative, comfortable, no acute distress and alert Neck Neck: Yes no lymphadenopathy Thyroid: Thyroid normal Resp Effort & Inspection: normal respiratory effort Auscultation: clear to auscultation bilaterally Percussion: percussion normal Cardio Jugular venous distension: no JVD Palpation: normal PMI Rate: regular rate Rhythm: regular rhythm Heart sounds: S1 normal heart sound present and S2 normal heart sound present GI Inspection: Yes normal to inspection Palpation (GI): No hepatosplenomegaly present Skin General skin exam: no rashes or lesions noted Extrem General: Yes no clubbing, cyanosis or edema Assessment and Plan Assessment & Plan (1) Hyperlipidemia: Code(s): E78.5 - Hyperlipidemia, unspecified Plan: do labs; same rx (2) Barretts esophagus: Code(s): K22.70 - Koroma's esophagus without dysplasia Plan: as per gi; same rx (3) Essential hypertension: Code(s): I10 - Essential (primary) hypertension Plan: increase amlod to 5 mg Orders: Orders Lipid Panel Today E78.5 - Hyperlipidemia, unspecified Comprehensive [employer]stone. Panel Fast Today N28.9 - Disorder of kidney and ureter, unspecified Complete Blood Count Auto Diff Today D64.9 - Anemia, unspecified Prostate Specific Antigen Scr Today Z00.00 - Encounter for general adult medical examination without abnormal findings Coding Level of Care Code Est Pt Level 4 (34774) Diagnoses Hyperlipidemia E78.5 Barretts esophagus K22.70 Essential hypertension I10 Additional Codes WILDA-7 Assessment Billing - WILDA-7 Assessment Tool: WILDA-7 Assessment [id number] ([id number])
[2023-09-16 08:32] VITALS: BP 150/90; PULSE 75; O2SAT 96; BMI 26.7
== END 2023-09-16 08:57 | disposition home or self-care (01) ==
PROVIDERS: PCP Internal Medicine; Visit Provider Internal Medicine
DX: E78.5 Hyperlipidemia, unspecified (principal); K22.70 Barrett's esophagus without dysplasia; I10 Essential (primary) hypertension
CPT/HCPCS: 99214

== ENCOUNTER 2023-09-28 08:44 | Outpatient (REF) | payer MEDICARE, SELFPAY ==
[2023-09-28 09:01] LABS: MANUAL DIFF FLAG NO
[2023-09-28 09:24] LABS: Basophils Absolute Auto 0.1 X10*3/uL (0.0-0.2); Basophils Percent Auto 1.1 % (0-2); Eosinophils Absolute Auto 0.7 X10*3/uL (0.0-0.4); Eosinophils Percent Auto 12.6 % (0-4); Hematocrit 42.5 % (42.0-52.0); Hemoglobin 14.5 g/dl (14.0-18.0); Imm Gran Abs Auto 0.02 X10*3/uL (0.00-0.03); Imm Gran Pct Auto 0.4 % (0.0-0.4); Lymphocytes Absolute Auto 0.9 X10*3/uL (1.2-4.9); Lymphocytes Percent Auto 16.8 % (20-40); Mean Corpuscular HGB Conc 34.1 g/dl (31.0-36.0); Mean Corpuscular Hemoglobin 30.9 pg (27.0-33.0); Mean Corpuscular Volume 90.6 fL (80.0-98.0); Monocytes Absolute Auto 0.6 X10*3/uL (0.1-1.2); Monocytes Percent Auto 9.9 % (2-11); Neutrophils Absolute Auto 3.3 x10*3/uL (2.0-8.3); Neutrophils Percent Auto 59.2 % (45-73); Platelet Count 209 X10*3/uL (160-400); Red Blood Count 4.69 X10*6/uL (4.60-5.80); Red Cell Distribution Width 13.4 % (11.0-16.0); White Blood Count 5.5 X10*3/uL (4.8-10.8)
[2023-09-28 09:53] LABS: Alanine Aminotransferase 19 U/L (0-40); Albumin Level 3.9 g/dL (3.5-5.0); Alkaline Phosphatase 93 U/L (39-117); Anion Gap 11 (12-20); Aspartate Amino Transferase 14 U/L (5-37); Bilirubin Total 0.9 mg/dL (0.0-1.0); Blood Urea Nitrogen 25 mg/dL (9-16); Calcium 9.3 mg/dL (8.4-10.2); Carbon Dioxide 29 mmol/L (22-29); Chloride 104 mmol/L (96-108); Cholesterol 143 mg/dL (<200); Estimated Glomerular Filt Rate > 60; Glucose Fasting 110 mg/dL (60-99); HDL Cholesterol 50 mg/dL (>40); LDL Cholesterol Calculated 78 mg/dL (<100); Potassium 3.4 mmol/L (3.3-5.1); Sodium 141 mmol/L (135-145); Total Protein 6.7 g/dL (6.5-8.0); Triglycerides 76 mg/dL (<150)
== END 2023-09-28 08:45 | disposition home or self-care (01) ==
LOC: HO.LAB 08:44
PROVIDERS: PCP Internal Medicine; Visit Provider Internal Medicine
DX: Z00.00 Encounter for general adult medical examination without abnormal findings (principal); D64.9 Anemia, unspecified; E78.5 Hyperlipidemia, unspecified; N28.9 Disorder of kidney and ureter, unspecified; Z12.5 Encounter for screening for malignant neoplasm of prostate
CPT/HCPCS: 36415; 80053; 80061; 84153; 85025

== ENCOUNTER 2023-11-19 08:39 | Outpatient (AMB) | payer MEDICARE, SELFPAY ==
[2023-11-19 08:54] VITALS: BP 130/70; PULSE 74; BMI 26.6
--- NOTE | 2023-11-19 08:54 | MHC.OFFVIS ---
Vital Signs 11/19/23 08:54 Height 6 ft 1 in Weight 201 lb 8.04 oz BMI 26.6 BP 130/70 Blood Pressure Location Lt brachial Position Sitting Pulse 74 Intake Visit Reasons: 1 year follow up Freight Adjuster Required: No Accompanied by: Self / Same As Patient Allergies No Known Allergies Allergy (Verified 09/16/23 08:32) Medication List - Last Reconciled 11/19/23 by Julito Diaz MD amlodipine 5 mg PO DAILY aspirin (Adult Low Dose Aspirin) 81 mg PO DAILY atorvastatin 80 mg PO DAILY ezetimibe 10 mg PO DAILY finasteride 5 mg PO DAILY 90 days losartan-hydrochlorothiazide 100-25 mg 1 tab PO DAILY omeprazole 10 mg PO DAILY tamsulosin (Flomax) 0.4 mg PO BEDTIME 90 days timolol 0.5% 1 drp ophthalmic (eye) BID HPI Comments Details: Telly returns for follow-up regarding coronary disease. In the past, he underwent cardiac workup for shortness of breath and that revealed nonobstructive coronary artery disease. He has hypertension and hyperlipidemia on appropriate therapy. He also has a strong vascular history in his family. Since last seen, no specific complaints. No angina or shortness of breath or in fact any other cardiac issues. [facility] Medical History Screening for diabetes mellitus Urinary hesitancy Urinary urgency Other and unspecified hyperlipidemia Atherosclerotic cardiovascular disease Hypertension Surgical History History of discectomy H/O endoscopy History of colonoscopy History of eye surgery History of colonoscopy History of lumbar surgery History of cholecystectomy Family History Father No problems noted. Mother No problems noted. Sister No problems noted. Social History Housing: House Alcohol intake: never Patient Tobacco Use Status: Former Tobacco user Quit Date: 30 years e-Cigarette/Vaping Use: Never Used Second Hand Smoke Exposure: Yes service: No Current occupational status: retired Current occupational exposures/hazards: No Cognitive needs: No Hearing needs: No Vision needs: Yes (glasses) Review of Systems Const Denies chills, Denies fatigue, Denies fever(s), Denies frequent falls, Denies weakness, Denies weight gain and Denies weight loss ENT Denies dizziness Card Denies chest pain, Denies leg edema, Denies lightheadedness, Denies palpitations, Denies dyspnea and Denies dyspnea on exertion Resp Denies cough, Denies dyspnea and Denies dyspnea on exertion GI Denies hematochezia Musc Denies abnormal gait, Denies muscle weakness, Denies numbness, Denies radiating pain into limb and Denies tingling Neuro Denies abnormal gait, Denies dizziness, Denies frequent falls, Denies numbness, Denies tingling and Denies weakness Endo Denies fatigue and Denies palpitations Physical Exam Vital Signs: Last Vital Signs Pulse 74 11/19/23 08:54 BP 130/70 11/19/23 08:54 BMI result Body Mass Index 26.6 Const General: comfortable and no acute distress Orientation/consciousness: patient oriented x3 HEENT Other: Unremarkable Head: Yes normal to inspection Neck Neck: Yes normal visual inspection Chest Chest palpation & inspection: normal inspection of the chest Resp Auscultation: clear to auscultation bilaterally Cardio Palpation: normal PMI Heart sounds: S1 normal heart sound present, S2 normal heart sound present, no gallops, no murmurs and no rubs GI Palpation (GI): Soft to palpation Back/Spine/Pelvis Other: unremarkable Skin General skin exam: no rashes or lesions noted Neuro General: patient oriented x3 Extrem General: Yes normal to inspection Psych Mental Status: mental status grossly normal Office Procedures EKG Details: EKG with sinus rhythm at 74/Min; no significant ST-T changes and otherwise unremarkable[place] [id number], Complete Assessment & Plan Assessment & Plan (1) Atherosclerotic cardiovascular disease: Code(s): I25.10 - Atherosclerotic heart disease of [place] coronary artery without angina pectoris Category: Medical Plan: Coronary CTA 2019- mild calcific plaque in the distal left main; [id number] calcific plaque throughout LAD; mild diffuse calcific plaque throughout the RCA and circumflex.? Nothing hemodynamically significant.? Clinically, he does not have any angina. Remains on aspirin, statins. (2) Essential hypertension: Code(s): I10 - Essential (primary) hypertension Category: Medical Plan: Stable. On losartan/HCTZ and amlodipine. (3) Other and unspecified hyperlipidemia: Code(s): E78.5 - Hyperlipidemia, unspecified Category: Medical Plan: On high-dose statins and Zetia. Last LDL is 78 mg/dL. (4) Ascending aorta dilatation: Code(s): I77.810 - Thoracic aortic ectasia Category: Medical Plan: In the last echocardiogram, ascending aortic size 4.1 cm. Recheck before next visit. Orders: Orders CA echo transthoracic complete 1 Year I77.810 - Thoracic aortic ectasia Coding Level of Care Code Est Pt Level 4 (67436) Diagnoses Atherosclerotic cardiovascular disease I25.10 Essential hypertension I10 Other and unspecified hyperlipidemia E78.5 Ascending aorta dilatation I77.810 CPT Codes EKG - CPT: 84642-[id number], Complete ([id number])
== END 2023-11-19 09:06 | disposition home or self-care (01) ==
PROVIDERS: Visit Provider Internal Medicine
DX: I25.10 Atherosclerotic heart disease of native coronary artery without angina pectoris (principal); I10 Essential (primary) hypertension; E78.5 Hyperlipidemia, unspecified; I77.810 Thoracic aortic ectasia
CPT/HCPCS: 93010; 99214

== ENCOUNTER → 2023-11-19 08:39 | Outpatient (BNVA) | payer MEDICARE, SELFPAY | PROVIDERS: Visit Provider Internal Medicine | DX: I25.10 Atherosclerotic heart disease of native coronary artery without angina pectoris (principal); I10 Essential (primary) hypertension; E78.5 Hyperlipidemia, unspecified; I77.810 Thoracic aortic ectasia; Z79.82 Long term (current) use of aspirin; Z79.899 Other long term (current) drug therapy | CPT/HCPCS: 93005; 99212 ==

== ENCOUNTER 2023-12-18 08:10 | Outpatient (AMB) | payer MEDICARE, SELFPAY ==
[2023-12-18 08:31] VITALS: BP 122/70; PULSE 70; O2SAT 98; BMI 26.1
--- NOTE | 2023-12-18 08:31 | MHC.PC.OV ---
Vital Signs 12/18/23 08:31 Height 6 ft 1 in Weight 198 lb BMI 26.1 BP 122/70 Blood Pressure Location Lt brachial Position Sitting Pulse 70 Pulse Source Pulse Oximeter Pulse Oximetry (%) 98 Oxygen Delivery Method Room Air Intake Visit Reasons: 3mth f/u Allergies No Known Allergies Allergy (Verified 09/16/23 08:32) Tobacco use date assessed: 09/16/23 Fall risk assessment: No Falls in past year Last assessed Fall Risk: 12/18/23 Dental Screening Dental Screen Date: 09/16/23 HPI 3mth f/u HPI Details HTN on Rx; doing well and compliant PENDING SALE TO [facility] Medical History Screening for diabetes mellitus Urinary hesitancy Urinary urgency Other and unspecified hyperlipidemia Atherosclerotic cardiovascular disease Hypertension Surgical History History of discectomy H/O endoscopy History of colonoscopy History of eye surgery History of colonoscopy History of lumbar surgery History of cholecystectomy Family History Father No problems noted. Mother No problems noted. Sister No problems noted. Social History Housing: House Alcohol intake: never Patient Tobacco Use Status: Former Tobacco user e-Cigarette/Vaping Use: Never Used Second Hand Smoke Exposure: Yes service: No Current occupational status: retired Current occupational exposures/hazards: No Cognitive needs: No Hearing needs: No Vision needs: Yes (glasses) Questionnaire Thrive Questionnaire Date Thrive assessed: 09/16/23 WILDA-7 AMB Questionnaire WILDA-7 Date WILDA - 7 assessed: 09/16/23 Source: Developed by Drs. Rajesh Foster, Sabina Arora, Thiago Zavala and colleagues, with an educational lance from [employer]. Review of Systems Const Denies chills, Denies headache(s) and Denies weight loss ENT Denies headache(s) Card Denies chest pain, Denies syncope, Denies irregular heart rhythm and Denies dyspnea Resp Denies chest congestion, Denies cough and Denies dyspnea GI Denies abdominal pain, Denies change in stool character, Denies nausea and Denies vomiting Musc Denies deformity and Denies joint swelling Neuro Denies syncope and Denies headache(s) Physical exam (Primary Care) Vital Signs: Last Vital Signs Pulse 70 12/18/23 08:31 BP 122/70 12/18/23 08:31 Pulse Ox 98 12/18/23 08:31 Oxygen Delivery Method Room Air 12/18/23 08:31 BMI result Body Mass Index 26.1 Tobacco/Smoking Status: Tobacco use Status Tobacco use date assessed 09/16/23 12/18/23 08:35 Patient Tobacco Use Status Former Tobacco user 12/18/23 08:35 Tobacco use type 11/20/22 10:17 e-Cigarette/Vaping Use Never Used 12/18/23 08:35 Thrive Assessment: Date of Thrive Assessment Date Thrive assessed 09/16/23 12/18/23 08:35 Const General: cooperative, comfortable, no acute distress and alert Neck Neck: Yes no lymphadenopathy Thyroid: Thyroid normal Resp Effort & Inspection: normal respiratory effort Auscultation: clear to auscultation bilaterally Percussion: percussion normal Cardio Jugular venous distension: no JVD Palpation: normal PMI Rate: regular rate Rhythm: regular rhythm Heart sounds: S1 normal heart sound present and S2 normal heart sound present GI Inspection: Yes normal to inspection Palpation (GI): No hepatosplenomegaly present Skin General skin exam: no rashes or lesions noted Extrem General: Yes no clubbing, cyanosis or edema Assessment and Plan Assessment & Plan (1) Hypertension: Code(s): I10 - Essential (primary) hypertension Plan: stable; same rx Orders: Orders Lipid Panel Today Z13.220 - Encounter for screening for lipoid disorders Coding Level of Care Code Est Pt Level 3 (48793) Diagnoses Hypertension I10
== END 2023-12-18 08:49 | disposition home or self-care (01) ==
PROVIDERS: PCP Internal Medicine; Visit Provider Internal Medicine
DX: I10 Essential (primary) hypertension (principal)
CPT/HCPCS: 99213

== ENCOUNTER 2024-01-12 11:36 | Outpatient (REF) | payer MEDICARE, SELFPAY ==
[2024-01-12 12:33] LABS: Appearance Urine Clear; Color Urine Yellow; Glucose Urine UA Negative (Negative); Leukocyte Esterase Urine Negative (Negative); Nitrite Urine Negative (Negative); PH 5.5 (5.0-9.0); Specific Gravity - Urine 1.025 (1.005-1.025); Urine Blood Negative (Negative); Urine Ketones Negative (Negative); Urine Protein Trace mg/dL (Neg-Trace)
[2024-01-12 12:35] LABS: Bacteria Urine None Seen (None Seen); Hyaline Casts Urine 0-2 /LPF (0-2); RBC Urine 0-2 /HPF (0-2); Squamous Epithelial Cell Urine 0-2 /HPF (0-2); WBC Urine 0-5 /HPF (0-5)
== END 2024-01-12 11:37 | disposition home or self-care (01) ==
LOC: HO.LAB 11:36
PROVIDERS: PCP Internal Medicine; Visit Provider Urology
DX: R39.11 Hesitancy of micturition (principal); N32.0 Bladder-neck obstruction; R35.1 Nocturia
CPT/HCPCS: 81001; 87086

== ENCOUNTER 2024-03-16 08:20 | Outpatient (AMB) | payer MEDICARE, SELFPAY ==
--- NOTE | 2024-03-16 08:22 | A.OFFVIS_ITS ---
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 Mccann. He has a past medical history of ACD, hypertension, and hyperlipidemia. He presents to the office today for follow-up of his lower urinary tract symptoms. In discussion with the patient today reports to be doing and feeling well. He reports since his last office visit here approximately 1 year ago he has had no bothersome urinary issues or concerns. He reports compliance with Flomax and finasteride as prescribed. Recent PSA results reviewed with the patient today as noted and trended below. In office urinalysis results reviewed with the patient today. PVR 21 mL. Reports significant improvement in nocturia with Flomax. He denies urinary urgency, urinary frequency, incontinence, nocturia, hematuria, dysuria, foul smelling urine, changes to urinary stream, flank pain, fever, and or chills. He is happy with his current voiding parameters. He otherwise offers no other issues or concerns at this time. PSA 03/26 3.4, 02/25 1.7, 09/26 1.8 [facility] Medical History Screening for diabetes mellitus Urinary hesitancy Urinary urgency Other and unspecified hyperlipidemia Atherosclerotic cardiovascular disease Hypertension Surgical History History of discectomy H/O endoscopy History of colonoscopy History of eye surgery History of colonoscopy History of lumbar surgery History of cholecystectomy Family History Father No problems noted. Mother No problems noted. Sister No problems noted. Social History Housing: House Alcohol intake: never Patient Tobacco Use Status: Former Tobacco user e-Cigarette/Vaping Use: Never Used Second Hand Smoke Exposure: Yes service: No Current occupational status: retired Current occupational exposures/hazards: No Cognitive needs: No Hearing needs: No Vision needs: Yes (glasses) Review of Systems Const All systems reviewed & are unremarkable except as noted in HPI and below Physical Exam Const General: cooperative, healthy appearing, comfortable, no acute distress, well developed, alert and awake Orientation/consciousness: patient oriented x3 Limitations: no limitations HEENT Head: Yes normal to inspection, Yes normocephalic and Yes atraumatic Ears: hearing grossly normal bilaterally Eyes General: appearance normal, both eyes and all related structures Neck Neck: Yes normal visual inspection and Yes trachea midline Chest Chest palpation & inspection: normal inspection of the chest Resp Effort & Inspection: normal respiratory effort and able to speak in complete sentences Cardio Rate: regular rate GI Inspection: Yes normal to inspection General: Yes no CVA tenderness Back/Spine/Pelvis Back: no CVA tenderness Skin General skin exam: no rashes or lesions noted Neuro General: patient oriented x3 Extrem General: Yes normal to inspection Psych Appearance: grossly normal and well kempt Mental Status: mental status grossly normal Speech and movement: Normal speech and movement present and Clear speech present Affect: normal affect Attitude: cooperative Thought process: Normal thought process present Thought content: Normal thought content present Insight: Fair insight present (Psych) Judgement: Fair judgement present (Psych) Office Procedures Post Void Residual Post Residual Void Post Void Residual (PVR): 21 23389-[id number] Void Residual by ultrasound Results AMB Urinalysis, Automated UA Leukoctes 0 Carter/uL Last Edit by Ned Hatch on 03/16/24 08:45 UA Nitrite Last Edit by Ned Hatch on 03/16/24 08:45 UA Urobilinogen 0.2 mg/dL Last Edit by Ned Hatch on 03/16/24 08:45 UA Protein 0 mg/dL Last Edit by Ned Hatch on 03/16/24 08:45 UA pH 6.0 Last Edit by Tonyalilly Tylercapo on 03/16/24 08:45 UA Blood 0 Jorge/uL Last Edit by Tonyalilly Tylercapo on 03/16/24 08:45 UA Specific Ayr 1.015 Last Edit by Ned Nayelicapo on 03/16/24 08:45 UA Ketone Last Edit by Ned Nayelicapo on 03/16/24 08:45 UA Bilirubin 0 mg/dL Last Edit by Ned Nayelicapo on 03/16/24 08:45 UA Glucose 0 mg/dL Last Edit by Ned Nayelicapo on 03/16/24 08:45 Results Reviewed Results Reviewed: Laboratory Last Values Urine pH (Auto) 6.0 03/16/24 08:43 Specific Ayr (Auto) 1.015 03/16/24 08:43 Urine Protein (Auto) 0 mg/dL 03/16/24 08:43 Glucose (UA)(Auto) 0 mg/dL 03/16/24 08:43 Urine Blood (Auto) 0 Jorge/uL 03/16/24 08:43 Urine Bilirubin (Auto) 0 mg/dL 03/16/24 08:43 Urine Urobilinogen (Auto) 0.2 mg/dL 03/16/24 08:43 Leukocyte Esterase (Auto) 0 Carter/uL 03/16/24 08:43 Assessment & Plan Assessment & Plan (1) Nocturia more than twice per night: Code(s): R35.1 - Nocturia Category: Medical (2) Bladder outlet obstruction: Code(s): N32.0 - Bladder-neck obstruction Category: Medical (3) Urinary hesitancy: Code(s): R39.11 - Hesitancy of micturition Category: Medical Plan In office urinalysis results reviewed with the patient today; as noted above. PVR 21 mL. Recent PSA results reviewed with the patient today; as noted above. Patient currently denies any bothersome urinary issues or concerns. He reports be happy with current voiding parameters. Continue Flomax and finasteride as prescribed. Will obtain PSA in 1 year. Follow-up in 1 year with PSA to be completed prior; or sooner with any issues, concerns, and or questions. Orders: Orders Prostate Specific Antigen 1 Year N32.0 - Bladder-neck obstruction AMB Urinalysis Automated Today Z13.9 - Encounter for screening, unspecified AMB Post Void Residual by ultrasound Today N32.0 - Bladder-neck obstruction Patient Instructions: The patient had an opportunity to ask questions regarding the treatment plan. All questions were answered. Physical exam, labs, and imaging were discussed and reviewed in detail. As well as risks, benefits, and discussion of treatment choices. No major barriers to understanding were identified. The patient expressed understanding and agreement with the above treatment plan. The patient was made aware they should contact our office by phone for worsening of their current condition, the appearance of new symptoms, or with any questions or concerns. Compliance is encouraged with any medications and follow up testing that is ordered. It is a privilege to be allowed the opportunity to participate in? your urological care.? Again, if you have any questions or concerns If you have any questions or concerns please do not hesitate to contact me. The office is [phone]. This note is constructed using voice recognition software. While every effort has been made to ensure accuracy embossing clerk errors may have been included. Yours sincerely, KAVITA Hoang Coding Level of Care Code Est Pt Level 3 (60364) Complex EM visit Add On G2211 Diagnoses Nocturia more than twice per night R35.1 Bladder outlet obstruction N32.0 Urinary hesitancy R39.11 CPT Codes Post Residual Void - PVR CPT Code: 18564-[id number] Void Residual by ultrasound ([id number])
== END 2024-03-16 08:47 | disposition home or self-care (01) ==
PROVIDERS: PCP Internal Medicine; Visit Provider Nurse Practitioner Family
DX: R35.1 Nocturia (principal); N32.0 Bladder-neck obstruction; R39.11 Hesitancy of micturition; Z13.9 Encounter for screening, unspecified
CPT/HCPCS: 99213; G2211

== ENCOUNTER → 2024-03-16 08:20 | Outpatient (BNVA) | payer MEDICARE, SELFPAY | PROVIDERS: PCP Internal Medicine; Visit Provider Nurse Practitioner Family | DX: R35.1 Nocturia (principal); N32.0 Bladder-neck obstruction; R39.11 Hesitancy of micturition; Z79.899 Other long term (current) drug therapy | CPT/HCPCS: 51798; 81003; 99212 ==

== ENCOUNTER 2024-04-12 10:16 | Outpatient (AMB) | payer MEDICARE, SELFPAY ==
[2024-04-12 10:18] VITALS: BP 136/84; PULSE 82; O2SAT 98; BMI 26.4
--- NOTE | 2024-04-12 10:18 | MHC.PC.OV ---
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 Required: No Accompanied by: Self / Same As Patient Allergies No Known Allergies Allergy (Verified 03/16/24 08:50) Medication List - Last Reconciled 04/12/24 by Mele Mccann MD amlodipine 5 mg PO DAILY aspirin (Adult Low Dose Aspirin) 81 mg PO DAILY atorvastatin 80 mg PO DAILY ezetimibe 10 mg PO DAILY finasteride 5 mg PO DAILY 90 days losartan-hydrochlorothiazide 100-25 mg 1 tab PO DAILY omeprazole 10 mg PO DAILY tamsulosin (Flomax) 0.4 mg PO BEDTIME 90 days timolol 0.5% 1 drp ophthalmic (eye) ONCE Tobacco use date assessed: 09/16/23 Fall risk assessment: No Falls in past year Last assessed Fall Risk: 04/12/24 Dental Screening Dental Screen Date: 09/16/23 HPI 3 mo f/u - see comments HPI Details HTN on Rx; doing well; BP at home 120s PFSH Medical History Screening for diabetes mellitus Urinary hesitancy Urinary urgency Other and unspecified hyperlipidemia Atherosclerotic cardiovascular disease Hypertension Surgical History History of discectomy H/O endoscopy History of colonoscopy History of eye surgery History of colonoscopy History of lumbar surgery History of cholecystectomy Family History Father No problems noted. Mother No problems noted. Sister No problems noted. Social History Housing: House Alcohol intake: never Patient Tobacco Use Status: Former Tobacco user Tobacco use type: Cigarette e-Cigarette/Vaping Use: Never Used Second Hand Smoke Exposure: Yes service: No Current occupational status: retired Current occupational exposures/hazards: No Cognitive needs: No Hearing needs: No Vision needs: Yes (glasses) Questionnaire PHQ-9 Over the last 2 weeks, how often have you been bothered by any of the following problems? 1. Little interest or pleasure in doing things: not at all 2. Feeling down, depressed, or hopeless: not at all 3. Trouble falling or staying asleep, or sleeping too much: not at all 4. Feeling tired or having little energy: not at all 5. Poor appetite or overeating: not at all 6. Feeling bad about yourself - or that you are a failure or have let yourself or your family down: not at all 7. Trouble concentrating on things, such as reading the newspaper or watching television: not at all 8. Moving or speaking so slowly that other people could have noticed. Or the opposite - being so fidgety or restless that you have been moving around a lot more than usual: not at all 9. Thoughts that you would be better off or of hurting yourself in some way: not at all Total score: 0 Depression Screening Interpretation: Negative Depression Screening Done: Yes 78225 - PHQ-9 Billing: Yes Source: Developed by Drs. Rajesh Foster, Sabina Arora, Thiago Zavala and colleagues, with an educational lance from [employer]. Thrive Questionnaire Date Thrive assessed: 09/16/23 Are you currently unemployed and looking for a job?: No AUDIT C Alcohol Use Questionnaire (AUDIT-C) 1. How often do you have a drink containing alcohol?: Never Total Score: 0 WILDA-7 AMB Questionnaire WILDA-7 Date WILDA - 7 assessed: 09/16/23 Source: Developed by Drs. Rajesh Foster, Thiago Alexandra and colleagues, with an educational lance from [employer]. Review of Systems Const Denies chills, Denies headache(s) and Denies weight loss ENT Denies headache(s) Card Denies chest pain, Denies syncope, Denies irregular heart rhythm and Denies dyspnea Resp Denies chest congestion, Denies cough and Denies dyspnea GI Denies abdominal pain, Denies change in stool character, Denies nausea and Denies vomiting Musc Denies deformity and Denies joint swelling Neuro Denies syncope and Denies headache(s) Physical exam (Primary Care) Vital Signs: Last Vital Signs Pulse 82 04/12/24 10:18 BP 136/84 04/12/24 10:18 Pulse Ox 98 04/12/24 10:18 Oxygen Delivery Method Room Air 04/12/24 10:18 BMI result Body Mass Index 26.4 Tobacco/Smoking Status: Tobacco use Status Tobacco use date assessed 09/16/23 04/12/24 10:22 Patient Tobacco Use Status Former Tobacco user 04/12/24 10:22 Tobacco use type Cigarette 04/12/24 10:22 e-Cigarette/Vaping Use Never Used 04/12/24 10:22 PHQ-9: PHQ-9 Score PHQ-9: Total score 0 04/12/24 10:22 Depression Screening Interpretation: Negative Thrive Assessment: Date of Thrive Assessment Date Thrive assessed 09/16/23 04/12/24 10:22 Const General: cooperative, comfortable, no acute distress and alert Neck Neck: Yes no lymphadenopathy Thyroid: Thyroid normal Resp Effort & Inspection: normal respiratory effort Auscultation: clear to auscultation bilaterally Percussion: percussion normal Cardio Jugular venous distension: no JVD Palpation: normal PMI Rate: regular rate Rhythm: regular rhythm Heart sounds: S1 normal heart sound present and S2 normal heart sound present GI Inspection: Yes normal to inspection Palpation (GI): No hepatosplenomegaly present Skin General skin exam: no rashes or lesions noted Extrem General: Yes no clubbing, cyanosis or edema Coding Level of Care Code Est Pt Level 3 (38469) Diagnoses Hypertension I10 Assessment & Plan Assessment & Plan (1) Hypertension: Code(s): I10 - Essential (primary) hypertension Category: Medical Plan: stable; same rx Orders: Orders Lipid Panel Today Z13.220 - Encounter for screening for lipoid disorders
== END 2024-04-12 10:46 | disposition home or self-care (01) ==
PROVIDERS: PCP Internal Medicine; Visit Provider Internal Medicine
DX: I10 Essential (primary) hypertension (principal)

== ENCOUNTER → 2024-04-12 10:16 | Outpatient (BNVA) | payer MEDICARE, SELFPAY | PROVIDERS: PCP Internal Medicine; Visit Provider Internal Medicine | DX: I10 Essential (primary) hypertension (principal) | CPT/HCPCS: 96127; 99212 ==

== ENCOUNTER 2024-07-01 10:03 | Outpatient (REF) | payer MEDICARE, SELFPAY ==
--- OUTSIDE RECORDS SUMMARY | 2024-07-01 10:07 | XMS_ITS ---
Author Organization [facility] Address [address] [address] Care Team Providers Care Book Cutter Name Role Phone Ramy RUBIN, Mele Primary Care Provider Gume Maldonado Unavailable [phone] Allergies No Known Allergies REASON FOR VISIT At Risk Footcare, Painful Nail(s) aggrevated by shoes and causing difficulty standing/walking. Medications Medication SIG (Take, Route, Frequency, Duration) Notes Start Date End Date Status Lisinopril-hydroCHLOROthi azide 20-12.5 MG TAKE 2 TABLETS ONCE A DAY Oral for 90 Not-Taking Lisinopril 40mg Not- Taking Valsartan-hydroCHLOROthia zide 80-12.5 MG Orally Active Simvastatin Not-Taki ng vitamin D 11/10/2013 Active amLODIPine Besylate Active Timolol Maleate 0.5 % INSTILL 1 DROP IN EACH EYE TWICE A DAY Ophthalmic for 20 Active Omeprazole Active Atorvastatin Calcium 40 MG TAKE 1 TABLET BY MOUTH EVERY DAY Oral for 90 Active Tamsulosin HCl 0.4 MG 1 capsule Orally O nce a day for 30 day(s) Active aspirin baby 11/10/2013 Active Social History Tobacco Use: Social History Observation Description Date Details (start date - stop date) Former Smoker NA - NA Tobacco Use/Smoking Question Answer Notes Are you a: former smoker Additional Findings: Tobacco Non-User Current no n-smoker Alcohol Screen Question Answer Notes Did you have a drink containing alcohol in the p ast year? No Points 0 Interpretation Negative Tobacco use other than smoking: Question Answer Notes Are you an other tobacco user? 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, with unspecified presence of clinical manifestation I70.203 ; Tinea unguium B35.1 ; Pain in right toe(s) M79.674 and Pain in left toe(s) M79.675 Assessments Encounter Date Diagnosis (ICD Code) Assessment Notes Treatment Notes Treatment Clinical Notes Section Notes 05/19/2024 Atherosclerosis of tanac[place] artery of both lower extremities, with unspecified presence of clinical manifestation (ICD-10 - I70.203) 05/19/2024 Tinea unguium (ICD-10 - B35.1) 05/19/2024 Pain in right toe(s) (ICD-10 - M79.674) 05/19/2024 Pain in left toe(s) (ICD-10 - M79.675) 05/19/2024 Other Plan Of Treatment Pending Test Test Name Order Date 66518-FSLAWPA NAIL, 6 OR MORE 05/19/2024 72431-XAIL SKIN LESIONS, 2 TO 4 05/19/20 24 Next Appt Details Follow Up: prn, Reason: Provider Name:Gume Salas , 08/18/2024 02:00:00 PM, [address] [facility], [place] [address], [place], [address], Procedure Notes * Category Sub-Category Detail Notes Debride Nail 6-10 Nail debridement Performance o f this nail treatment by a nonprofessional would put this patients foot and overall health at risk. Therefore, debridement to affected nail(s), as described in exam, was performed extensively to reduce/remove overall nail length, girth, thickness, subungual debris, and necrotic tissue, by manual and/or electrical means through the use of a nail nipper and/or dremel-type grinder watch parts, to a more viable healthy nail plate or bed tissue 6-10. Silver nitrate used for any petechial bleeding as necessary. Definitive antifungal treatment options have been reviewed and discussed with the patient. The patient chooses, no pharmaceutical tx - 66856 Keratoma Treatment Parring or Cutting o f Benign Hyperkeratotic Lesion(s) (-56) 2-4 Lesions - The Benign hyperkeratotic lesions, as described in exam, were pared, and/or cut utilizing a sterile 15 blade, tissue nippers, and/or dremel - 37894, Q8 Progress Notes * KOBIDarryl DESIRne WDOB: 0 (73 yo M)Acc No.[id number]:05/19/2024 Progress Note Patient:?Telly SILVERMAN W Provider:?Gume Salas DPM :1950???Age:73 Y???Sex:Male Danny e:05/19/2024 Address:[address] [place] [id number] Pcp:Mele Mccann MD Subjective: * Chief Complaints: * ???At Risk FootcarePainful N ail(s) aggrevated by shoes and causing difficulty standing/walking. * HPI: ???At Risk footcare:?Pt States Last PCP Visit:?Date?04/26/2024 * ROS:?General/Constitutional:?Nausea?denies.?Vomiting?denies.?Hunger Thirst?denies.?Loss appetite?denies.?Chills?denies.?Fatigue?denies.?Fever?denies.?Night Sweats?denies.?Unexplained weight loss?denies.?Ophthalmologic:?Blurred vision?denies.?Red eye?denies.?HEENTM:?Dentures?denies.?Dizziness?denies.?Glasses/contacts?admits.?Retinopathy?de nies.?Blurred/double vision?denies.?TMJ?denies.?Discharge/drainage?denies.?Implants?denies.?Hard of hearing denies.?Difficulty chewing/swallowing/speaking?denies.?Nose bleeds?denies.?Sore mouth?denies.?Swollen glands?denies.?Respiratory:?On Oxygen?denies.?Pneumonia/pleurisy?denies.?Bronchitis?denies.?Emphysema?denies.?C oughing?denies.?Cough blood?denies.?Shortness of breath?denies.?Wheezing?denies.?Cardiovascular:?Pacemaker?denies.?MVP?denies.?WPW?denies.?CHF?denies.?Heart attack?denies.?Septal defect?denies.?Rapid beat?denies.?Chest pain ?denies.?Atrial Fib.?denies.?Murmur/Palpitations?denies.?Gastrointestinal:?Hemorrhoids?denies.?Stomach/Abdominal pain?denies.?Dark blood stool?denies.?Irritable bowel ?denies.?Constipation?denies.?Diarrhea?denies.?Vomiting?denies.?Hematology:?Swelling?admits.?Bruising?admits, on aspirin.?Bleeding problem?admits, on anticoagulants.?Genitourinary:?Blood urine?denies.?Frequent/Painfu/urination/bladder control?denies.?Kidney stones?denies.?Infection (UTI)?denies.?Nephropathy?denies.?Musculoskeletal:?Hammertoes?denies.?Bunions?denies.?Scoliosis/kyphosis?denies.?Muscle cramps / walking?denies.?Generalized aches and pains?denies.?Weakness?denies.?Integ.:?Valenzuela?denies.?Scars?denies.?Corns/calluses?admits.?Ingrown nails?admits.?Painful nails?admits.?Rashes?denies.?Neurologic:?Difficulty sleeping?denies.?Bipolar?denies.?Brain disorder?denies.?Balance trouble?denies.?Confusion?denies.?Fainting/blackouts?denies.?Headache?denies.?Tr emors?denies.? * Medical History:? * Surgical History:?cataract-l ens implants ack surgery 1989bladder surgery spinal surgery 05/10/12lt eye for glacoma 01/2019biopsy right ankle 02/2020laser eye surgery 11/2023 * Hospitalization/Major Diagno stic Procedure:?endoscopy & colonoscopy 10/18Wing Tamayo, vein issue right ankle 12/31/19 * Family History:?Mother: dece ased, diagnosed with Unspecified heart disease.?Father: , diagnosed with Unspecified cerebral artery occlusion with cerebral infarction, Family history of arthritis, Diabetic - NIDDM, Unspecified essential hypertension.?Son(s): alive.?Spouse: alive.?Siblings: diagnosed with Other malignant neoplasm of unspecified site.?4 son(s) . .? * Social History:?Tobacco Use:?Tobacco Use/Smoking?Are you a:?former smoker ?Additional Findings: Tobacco Non-User?Current non-smoker ?Tobacco use other than smoking?Are you an other tobacco user??No ???Drugs/Alcohol:?Drugs?Have you used drugs other than those for medical reasons in the past 12 months??No ?Alcohol Screen?Did you have a drink containing alcohol in the past year??No ?Points?0 ?Interpretation?Negative ???Miscellaneous:?Caffeine: yes, frequency:, 1-2 cups per week. ?Children: yes, 4. ?Exercise: yes, Farm ,yard work. ?Marital status: . 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 * Medications:?Takingaspirin b pastor amLODIPine Besylate Atorvastatin Calcium 40 MG Tablet TAKE 1 TABLET BY MOUTH EVERY DAY Oral Omeprazole Tamsulosin HCl 0.4 MG Capsule 1 capsule Orally Once a day Timolol Maleate 0.5 % Solution INSTILL 1 DROP IN EACH EYE TWICE A DAY Ophthalmic Valsartan-hydroCHLOROthiazide 80-12.5 MG Tablet Orally vitamin D Taking aspirin baby Taking amLODIPine Besylate Taking Atorvastatin Calcium 40 MG Tablet TAKE 1 TABLET BY MOUTH EVERY DAY Oral Taking Omeprazole Taking Tamsulosin HCl 0.4 MG Capsule 1 capsule Orally Once a day Taking Timolol Maleate 0.5 % Solution INSTILL 1 DROP IN EACH EYE TWICE A DAY Ophthalmic Taking Valsartan-hydroCHLOROthiazide 80-12.5 MG Tablet Orally Taking vitamin D Not-Taking/PRNSimvastatin Lisinopril 40mg Lisinopril-hydroCHLOROthiazide 20-12.5 MG Tablet TAKE 2 TABLETS ONCE A DAY Oral Medication List reviewed and reconciled with the patientNot-Taking/PRN Simvastatin Not-Taking/PRN Lisinopril 40mg Not- Taking/PRN Lisinopril-hydroCHLOROthiazide 20-12.5 MG Tablet TAKE 2 TABLETS ONCE A DAY Oral Medication List reviewed and reconciled with the patient * Allergies:?N.K.D.A.yes[Aller gies Verified] Objective: * Vitals:?Ht: 6ft 2in, Wt:200, BMI:25.68, Shoe size: 10.5, Ht-cm: 187.96 cm, Wt- k.72 kg. * Examination: ???Vascular: ?DP PULSES(B):? 0/4, B/L.?PT PULSES(B):? 0/4, B/L.?CAPILLARY FILL TIME:? delayed, all digits, B/L.?TROPHIC CONDITION-TEXTURE/ELASTICITY/TURGOR/HAIR GROWTH(B):? decreased,?with sparse to absent hair growth, B/L.?TEMPERTURE GRADIENT(C):? decreased, cool to cool, proximal to distal, B/L.?PIGMENTATION:? rubrous, B/L.?EDEMA(C):? 2/4, non-pitting, without aching pain, B/L, Leg(s), Ankle(s), Feet.?CLAUDICATION(C):?denies, B/L.?REST PAIN:?denies, B/L.?VARICOSITIES:?present, moderate, nonpainful, B/L.?Nails: ?NAILS are:? Elongated, overgrown, dystrophic, lytic, greater than 3mm thick, discolored and friable with crumbly malodorous subungual debris, with pain on palpation, 1-5 B/L.?Dermatologic: ?SKIN FINDINGS:? Skin exam reveals Keratotic lesion(s) located at,?Plantar, Heel(s), B/L .? 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 Plan: * Treatment: 2.?Tinea unguium?Procedure: 64429-BRUGZOK NAIL, 6 OR MORE * Procedures:?Debride Nail 6-10:?Nail debridement?Performance of this nail treatment by a nonprofessional would put this patients foot and overall health at risk. Therefore, debridement to affected nail(s), as described in exam, was performed extensively to reduce/remove overall nail length, girth, thickness, subungual debris, and necrotic tissue, by manual and/or electrical means through the use of a nail nipper and/or dremel-type grinder watch parts, to a more viable healthy nail plate or bed tissue 6-10. Silver nitrate used for any petechial bleeding as necessary. Definitive antifungal treatment options have been reviewed and discussed with the patient. The patient chooses, no pharmaceutical tx - 09074.?Keratoma Treatment:?Parring or Cutting of Benign Hyperkeratotic Lesion(s)?(-56) 2-4 Lesions - The Benign hyperkeratotic lesions, as described in exam, were pared, and/or cut utilizing a sterile 15 blade, tissue nippers, and/or dremel - 87197, Q8.? * Procedure Codes:?02859 DEBRI DE NAIL, 6 OR MORE, Modifiers: XS 32303 TRIM SKIN LESIONS, 2 TO 4, Modifiers: XS , Q8 * Follow Up:?prn * Images: * Sign off status: Completed true * Provider:Kirit Salas DPM Date:?2023 Generated for Savannah thomas/Paige/Gricelda on:?07/01/2024 10:07 AM EST History and Physical Notes * HPI (History of Present Illness) Category Sub-Category Detail Notes Category Not es At Risk footcare Pt States Last PCP Visit: Date: Examination Category Sub-Category Detail Notes Category Not es Dermatologic SKIN FINDINGS: Skin exam reveal s Keratotic lesion(s) located at, Plantar, Heel(s), B/L Vascular DP PULSES (B): 0/4, B/L PT PULSES (B): 0/4, B/L CAPILLARY FILL TIME: delayed, all digits , B/L TEMPERTURE GRADIENT (C): decreased, cool to cool, proximal to distal, B/L TROPHIC CONDITION-TEXTURE/ELASTICITY/TURGOR/HAIR GROWTH (B): decreased, with sparse to absent hair gr owth, B/L EDEMA (C): 2/4, non-pitting, wi thout aching pain, B/L, Leg(s), Ankle(s), Feet VARICOSITIES: present, moderate, n onpainful, B/L CLAUDICATION (C): denies, B/L REST PAIN: denies, B/L PIGMENTATION: rubrous, B/L Nails NAILS are: Elongated, overg rown, dystrophic, lytic, greater than 3mm thick, discolored and friable with crumbly malodorous subungual debris, with pain on palpation, 1-5 B/L
--- OUTSIDE RECORDS SUMMARY | 2024-07-01 10:08 | XMS_ITS | Patient Health Record ---
Author Organization [facility] Address [address] [facility] [address] Care Team Providers Care Speech Assistant Name Role Phone Mele Mccann MD Primary Care Provider Gume Maldonado Unavailable [phone] Allergies No Known Allergies Reason For Referral No Information Medications Medication SIG (Take, Route, Frequency, Duration) Notes Start Date End Date Status Lisinopril-hydroCHLOROthi azide 20-12.5 MG TAKE 2 TABLETS ONCE A DAY Oral for 90 Not-Taking Lisinopril 40mg Not- Taking amLODIPine Besylate Active aspirin baby 11/10/2013 Active Valsartan-hydroCHLOROthia zide 80-12.5 MG Orally Active Timolol Maleate 0.5 % INSTILL 1 DROP IN EACH EYE TWICE A DAY Ophthalmic for 20 Active Simvastatin Not-Taki ng vitamin D 11/10/2013 Active Omeprazole Active Atorvastatin Calcium 40 MG TAKE 1 TABLET BY MOUTH EVERY DAY Oral for 90 Active Tamsulosin HCl 0.4 MG 1 capsule Orally O nce a day for 30 day(s) Active Immunizations Vaccine Route Administration Date Status Comme nts COVID-19 Pfizer BioNTech Vaccine Unknown 10/04/2020 Adm inistered Influenza Unknown 03/08/2018 Administered Influenza Unknown 04/07/2019 Administered Social History Tobacco Use: Social History Observation [...] Are you an other tobacco user? No Problems Problem Type SNOMED Code ICD Code Onset Dates Problem Status W/U Status Risk Notes Problem Atherosclerosis of [place] arteries of the extremities ([id number]) Atherosclerosis of [place] artery of both lower extremities, with unspecified presence of clinical manifestation (I70.203) Active confirmed Vital Signs Height 6ft 2in in 05/19/2024 Weight 200 lbs 05/19/2024 BMI 25.68 kg/m2 05/19/2024 Procedures Procedure Date Ordered Date Performed Result Body Sit e 33833-QWRIFJC NAIL, 6 OR MORE 08/17/2023 N/A 98829-UZCQ SKIN LESIONS, 2 TO 4 08/17/2023 N/A 17146-URRCNRX NAIL, 6 OR MORE 11/16/2023 N/A 10701 I&D ABSCESS- SIMPLE,SINGLE 11/16/2023 N/A 68385-AFIH SKIN LESIONS, 2 TO 4 11/16/2023 N/A 09313-IOJKQNT NAIL, 6 OR MORE 02/15/2024 N/A 58804-MYPX SKIN LESIONS, 2 TO 4 02/15/2024 N/A 64861-BKFPUJG NAIL, 6 OR MORE 05/19/2024 N/A 26550-IQQA SKIN LESIONS, 2 TO 4 05/19/2024 N/A Encounters Encounter Location Date Provider Diagnosis [address] [address] 08/17/2023 Gume Salas Atherosclerosis of [place] artery of both lower extremities, with unspecified presence of clinical manifestation I70.203 ; Tinea unguium B35.1 ; Pain in right toe(s) M79.674 and Pain in left toe(s) M79.[address] [address] 11/16/2023 Gumeanupama AponteJosue Atherosclerosis of [place] artery of both lower extremities, with unspecified presence of clinical manifestation I70.203 ; Tinea unguium B35.1 ; Pain in right toe(s) M79.674 ; Pain in left toe(s) M79.675 and Abscess of toe, right L02.[address] [address] 02/15/2024 Gume Salas Atherosclerosis of [place] artery of both lower extremities, with unspecified presence of clinical manifestation I70.203 ; Tinea unguium B35.1 ; Pain in right toe(s) M79.674 and Pain in left toe(s) M79.675 [facility] [place] [address] [address] 05/19/2024 Gume Salas Atherosclerosis of [place] artery of both lower extremities, with unspecified presence of clinical manifestation I70.203 ; Tinea unguium B35.1 ; Pain in right toe(s) M79.674 and Pain in left toe(s) M79.675 Assessments Encounter Date Diagnosis (ICD Code) Assessment Notes Treatment Notes Treatment Clinical Notes Section Notes 08/17/2023 Tinea unguium (ICD-10 - B35.1) 08/17/2023 Atherosclerosis of [place] artery of both lower extremities, with unspecified presence of clinical manifestation (ICD-10 - I70.203) 11/16/2023 Tinea unguium (ICD-10 - B35.1) 11/16/2023 Atherosclerosis of [place] artery of both lower extremities, with unspecified presence of clinical manifestation (ICD-10 - I70.203) 02/15/2024 Tinea unguium (ICD-10 - B35.1) 02/15/2024 Atherosclerosis of [place] artery of both lower extremities, with unspecified presence of clinical manifestation (ICD-10 - I70.203) 05/19/2024 Tinea unguium (ICD-10 - B35.1) 05/19/2024 Atherosclerosis of [place] artery of both lower extremities, with unspecified presence of clinical manifestation (ICD-10 - I70.203) 05/19/2024 Pain in right toe(s) (ICD-10 - M79.674) 08/17/2023 Pain in right toe(s) (ICD-10 - M79.674) 02/15/2024 Pain in right toe(s) (ICD-10 - M79.674) 11/16/2023 Pain in right toe(s) (ICD-10 - M79.674) 08/17/2023 Pain in left toe(s) (ICD-10 - M79.675) 11/16/2023 Pain in left toe(s) (ICD-10 - M79.675) 02/15/2024 Pain in left toe(s) (ICD-10 - M79.675) 05/19/2024 Pain in left toe(s) (ICD-10 - M79.675) 11/16/2023 Abscess of toe, right (ICD-10 - L02.611) Patient Educated with: WOUND CARE INSTRUCTIONS. pdf (WOUND CARE INSTRUCTIONS. pdf) 02/15/2024 Other 05/19/2024 Other Plan Of Treatment Pending Test Test Name Order Date 89226-LSLFDDW NAIL, 6 OR MORE 03/27/2011 95349-LJZDAGG NAIL, 6 OR MORE 06/12/2011 02993-MTTJZBY NAIL, 6 OR MORE 09/11/2011 31188-DHTEHPU NAIL, 6 OR MORE 12/18/2011 79533-HYJTSKU NAIL, 6 OR MORE 03/18/2012 69137-UXVXQJQ NAIL, 6 OR MORE 06/17/2012 44981-YFLRJRH NAIL, 6 OR MORE 09/02/2012 83603-IQQKHZM NAIL, 6 OR MORE 11/11/2012 96306-WARJNHF NAIL, 6 OR MORE 02/10/2013 07765-BJBSFDJ NAIL, 6 OR MORE 05/19/2013 51263-JGWOPKX NAIL, 6 OR MORE 08/18/2013 56046-CGVPTEU NAIL, 6 OR MORE 11/10/2013 38661-KSNGFUN NAIL, 6 OR MORE 02/16/2014 85776-OIZSTID NAIL, 6 OR MORE 05/18/2014 88186-NKSCJTY NAIL, 6 OR MORE 08/17/2014 12383-ILBMVKX NAIL, 6 OR MORE 11/16/2014 75836-TJQNRFS NAIL, 6 OR MORE 02/15/2015 89924-ADYIWSB NAIL, 6 OR MORE 05/10/2015 97228-OGNWNPA NAIL, 6 OR MORE 08/09/2015 25203-KKFHCQZ NAIL, 6 OR MORE 11/07/2015 39555-FBUXEOG NAIL, 6 OR MORE 02/06/2016 83192-XFBHKNY NAIL, 6 OR MORE 05/07/2016 10701-JQSLIPO NAIL, 6 OR MORE 08/06/2016 89254-PSUKKQO NAIL, 6 OR MORE 11/05/2016 52998-WSHREAB NAIL, 6 OR MORE 02/04/2017 48896-JLIYQUI NAIL, 6 OR MORE 05/06/2017 45568-PTCQZWT NAIL, 6 OR MORE 08/06/2017 05847-RKCDYEW NAIL, 6 OR MORE 11/09/2017 44854-GWOORXY NAIL, 6 OR MORE 02/08/2018 17156-AYVLCGN NAIL, 6 OR MORE 05/10/2018 68697-HKTDVDY NAIL, 6 OR MORE 08/11/2018 18825-UHTUUBH NAIL, 6 OR MORE 11/11/2018 37628-DFNCKPL NAIL, 6 OR MORE 02/10/2019 58182-ASVEWGM NAIL, 6 OR MORE 05/19/2019 88803-WRGBIMI NAIL, 6 OR MORE 10/03/2019 33230-IECZGBU NAIL, 6 OR MORE 01/02/2020 59035-HXLCRPG NAIL, 6 OR MORE 03/29/2020 42835-OYXIYXR NAIL, 6 OR MORE 07/09/2020 96668-QKJCTSS NAIL, 6 OR MORE 10/08/2020 56255-GNJNUJB NAIL, 6 OR MORE 01/10/2021 68530-NEGMYGB NAIL, 6 OR MORE 04/10/2021 81270-OJFIRKO NAIL, 6 OR MORE 07/11/2021 65265-BCVFVYC NAIL, 6 OR MORE 10/14/2021 08003-URNBWCE NAIL, 6 OR MORE 01/15/2022 23249-THIDZXY NAIL, 6 OR MORE 04/23/2022 36711-XQMXOYH NAIL, 6 OR MORE 09/03/2022 27969-JYLWPBD NAIL, 6 OR MORE 11/17/2022 39525-ZYSLSKJ NAIL, 6 OR MORE 02/16/2023 01211-JEMKKMP NAIL, 6 OR MORE 05/18/2023 87402-LTDBUJK NAIL, 6 OR MORE 08/17/2023 32562-RFWXYHP NAIL, 6 OR MORE 11/16/2023 95090-ZUWIJCW NAIL, 6 OR MORE 02/15/2024 94228-JVPNUZA NAIL, 6 OR MORE 05/19/2024 08006-Pjol Destruction, -02/15/2015 03446-Gujv Destruction, -11/16/2014 75190-Iqah Destruction, -08/17/2014 19071-Spmp Destruction, -06/12/2011 73510-Zdhn Destruction, 1-05/18/2014 77828-Wwlj Destruction, -06/17/2012 92315-Kktk Destruction, -03/18/2012 43527-Ypam Destruction, -12/18/2011 82171-Pzvd Destruction, 1-09/11/2011 81188-Caot Destruction, -03/27/2011 51910-Axxrrdss Plate 06/12/2011 32730-Ftlghxwt Plate 09/11/2011 16769-Dqdchdbk Plate 12/18/2011 47438-Nxavbtoy Plate 03/18/2012 44687-Ioscxskk Plate 06/17/2012 17456-Kvcqjibl Plate 05/18/2014 45724-Evqczsgo Plate 02/16/2014 56220-Gxgbsxdx Plate 11/10/2013 88209-Flpynrpf Plate 08/18/2013 08225-Vcjnafzp Plate 05/19/2013 58852-Bvwpuanv Plate 02/10/2013 02895-Snmvisci Plate 11/11/2012 95874-Pgrracui Plate 08/17/2014 67229-Bgwroefy Plate 11/16/2014 55974-Zgydcwdt Plate 02/15/2015 25431-Khimturn Plate 08/09/2015 90830-Fxhhcits Plate 05/10/2015 17636-Kwedqcga Plate 11/11/2018 78614-Nuzmaudi Plate 08/11/2018 12711-Bzpdrsbx Plate 05/10/2018 06695-Psjgswqr Plate 08/06/2017 00377-Rjkvgevj Plate 11/17/2022 19141-Ywibjnbc Plate 09/03/2022 35597-Mffziugs Plate 04/23/2022 00813-Mbezmzkh Plate 01/15/2022 85680-Wwnmyiaf Plate 10/14/2021 74263-Nggtuoov Plate 07/11/2021 05580-Cwmzssyj Plate 04/10/2021 29135-Xbssoggx Plate 01/10/2021 31316-Xncfdxbi Plate 10/08/2020 62577-Baagcgrb Plate 07/09/2020 37164-Dmpcexsu Plate 03/29/2020 67522-Glxtsnrp Plate 01/02/2020 80134-Mszvkapw Plate 10/03/2019 04516-Jdnngpwv Plate 05/19/2019 80388-Bwomzlmv Plate 02/10/2019 63917-Yyvwbzwl Plate Each Additional 56971-Olujihyu Plate Each Additional 10/2020 96802-Ojjndpok Plate Each Additional 11/2020 97082-Jaeoxbcy Plate Each Additional 02/2021 63582-Uladfrgf Plate Each Additional 11/2014 97372-Wjlfsthm Plate Each Additional 10/2015 10763-Kcgijaub Plate Each Additional 46546-Pkcwkgtn Plate Each Additional 35148-Ymyhxfuz Plate Each Additional 06/2015 97234-Oxilkdts Plate Each Additional 82810-Kikumofm Plate Each Additional 02/2014 50009-Htgllgbp Plate Each Additional 00853-Feyotadq Plate Each Additional 03470-Sozbsaqw Plate Each Additional 63893-Bjagjjyk Plate Each Additional 02/2012 02329-FNL 01/24/2021 72412- Debride <25 sq cm 10/08/2020 24099-RUNDWYC SKIN/TISSUE 02/07/2021 08100 I&D ABSCESS- SIMPLE,SINGLE 024 91474 I&D ABSCESS- SIMPLE,SINGLE 011 45891-NKDX SKIN LESIONS, 2 TO 4 05/19/20 24 17586-LSZV SKIN LESIONS, 2 TO 4 02/15/20 24 80073-WFED SKIN LESIONS, 2 TO 4 11/16/19 24 40897-UWIP SKIN LESIONS, 2 TO 4 11/18/19 23 85005-ETYQ SKIN LESIONS, 2 TO 4 02/17/20 23 25605-PTKR SKIN LESIONS, 2 TO 4 08/17/19 24 91044-XORN SKIN LESIONS, 2 TO 4 05/18/20 23 38464-DSKO SKIN LESIONS, 2 TO 4 09/04/19 23 18363-Qsjt. Subungual Hematoma 3 Next Appt Details Provider Name:Gume Nixon Josue , 08/18/2024 02:00:00 PM, [address] [facility], [place] [address], [place], [address], Insurance Providers Payer Name Payer Address Payer Phone Subscriber Number Group Number Insured Name Patient Relationship to Insured Coverage Start Date Coverage End Date Medicare National [employer] [address] [place] [address] [id number] Telly Silverman Self - patient is the insured 6 [employer] Blue [employer] [address] [place] [address] [phone] [id number] Telly Silverman Self - patient is the insured Medical (General) History Medical History History ICD Code hypertension Cholesterol psoriasis glaucoma Surgical History Surgery Date(Month/Year) cataract-lens implants 2021 back surgery 1989 bladder surgery spinal surgery 05/10/12 lt eye for glacoma 01/2019 biopsy right ankle 02/2020 laser eye surgery 11/2023 Hospitalization History Reason Date(Month/Year) Wing Tamayo, vein issue right ankle 12/30 endoscopy & colonoscopy 10/18
--- OUTSIDE RECORDS SUMMARY | 2024-07-01 10:08 | XMS_ITS ---
Author Organization [facility] Address [address] [address] Care Team Providers Care Bag Tester Name Role Phone Ramy RUBIN, Mele Primary Care Provider Gume Maldonado Unavailable [phone] Allergies No Known Allergies REASON FOR VISIT At Risk Footcare, Painful Nail(s) aggrevated by shoes and causing difficulty standing/walking., Possible Infection Medications Medication SIG (Take, Route, Frequency, Duration) Notes Start Date End Date Status Simvastatin Not-Taki ng Lisinopril 40mg Not- Taking Lisinopril-hydroCHLOROthi azide 20-12.5 MG TAKE 2 TABLETS ONCE A DAY Oral for 90 Not-Taking Valsartan-hydroCHLOROthia zide 80-12.5 MG Orally Active vitamin D 11/10/2013 Active Atorvastatin Calcium 40 MG TAKE 1 TABLET BY MOUTH EVERY DAY Oral for 90 Active Omeprazole Active amLODIPine Besylate Active Tamsulosin HCl 0.4 MG 1 capsule Orally O nce a day for 30 day(s) Active Timolol Maleate 0.5 % INSTILL 1 DROP IN EACH EYE TWICE A DAY Ophthalmic for 20 Active aspirin baby 11/10/2013 Active Social History [...] No Vital Signs Height 6ft 2in in 11/16/2023 Weight 200 lbs 11/16/2023 BMI 25.68 kg/m2 11/16/2023 Procedures Procedure Date Ordered Date Performed Result Body Sit e 90621-DDKAXVU NAIL, 6 OR MORE 11/16/2023 N/A 94905 I&D ABSCESS- SIMPLE,SINGLE 11/16/2023 N/A 86430-NFJB SKIN LESIONS, 2 TO 4 11/16/2023 N/A Encounters Encounter Location Date Provider Diagnosis [facility] [place] [address] [place] [phone] 11/16/2023 Gume Salas Atherosclerosis of [place] artery of both lower extremities, with unspecified presence of clinical manifestation I70.203 ; Tinea unguium B35.1 ; Pain in right toe(s) M79.674 ; Pain in left toe(s) M79.675 and Abscess of toe, right L02.611 Assessments Encounter Date Diagnosis (ICD Code) Assessment Notes Treatment Notes Treatment Clinical Notes Section Notes 11/16/2023 Atherosclerosis of [place] artery of both lower extremities, with unspecified presence of clinical manifestation (ICD-10 - I70.203) 11/16/2023 Tinea unguium (ICD-10 - B35.1) 11/16/2023 Pain in right toe(s) (ICD-10 - M79.674) 11/16/2023 Pain in left toe(s) (ICD-10 - M79.675) 11/16/2023 Abscess of toe, right (ICD-10 - L02.611) Patient Educated with: WOUND CARE INSTRUCTIONS. pdf (WOUND CARE INSTRUCTIONS. pdf) Plan Of Treatment Treatment Notes Assessment Notes Abscess of toe, right Patient Educated w ith: WOUND CARE INSTRUCTIONS.pdf (WOUND CARE INSTRUCTIONS.pdf) Pending Test Test Name Order Date 09559-VNRCBYX NAIL, 6 OR MORE 11/16/2023 07623 I&D ABSCESS- SIMPLE,SINGLE 024 46433-BKAU SKIN LESIONS, 2 TO 4 11/16/19 24 Next Appt Details Follow Up: prn, Reason: Provider Name:Gume Hussain AponteJosue , 08/18/2024 02:00:00 PM, [address] [address], [place], [phone], Procedure Notes * Category Sub-Category Detail Notes Debride Nail 6-10 Nail debridement Nail debridem ent performed extensively to reduce/remove overall nail length, girth, thickness, subungual debris, and necrotic tissue, by manual and electrical means through the use of a nail nipper and/or dremel, to more viable healthy nail plate or bed tissue 1-5. Silver nitrate used for any petechial bleeding as necessary. Patient chooses, no pharmaceutical tx (28896) I&D nail abscess Location Lateral nail arsalan rder , T5 Procedure Performed incision a nd drainage of Single Nail Abscess with use of sterile nail nipper/316 blade. Approximately ( 0.1 ) cc purulent fluid material was drained. The infected devitalized soft tissue was curettaged to healthy bleeding bed. Any affected nail portion was removed to the eponychium . Any evidence of granuloma was also removed at this time. No underlying bone was visualized. There was minimal bleeding as hemostasis was achieved through the temporary use of either a digital tournaquet or the aforementioned local with epinephrine. An application of sterile Bacitracin dressing was performed. Local wound care instructions were discussed and dispensed. Recommended Tylenol or Motrin for pain/discomfort (09055) , CIRCULATION: Pt was advised as to the risk of delayed or nonhealing due to circulation. Pt is to call the office with any questions, concerns, or complications Type Single, Abscess Anesthesia 3cc of 1 percent Lid ocaine Plain local anesthesic utilizing aseptic technique Keratoma Treatment Parring or Cutting o f Benign Hyperkeratotic Lesion(s) 51740 (2-4 Lesions) - The Benign hyperkeratotic lesions, as described above were pared, and/or cut utilizing a sterile #15 blade, tissue nippers, and/or dremel, Q8 Progress Notes * Telly SILVERMAN WDOB: 0 (73 yo M)Acc No.[id number]:11/16/2023 Progress Note Patient:?Telly Silverman W Provider:?Gume Salas DPM :1950???Age:73 Y???Sex:Male Danny e:11/16/2023 Address:[address] [place] [address], [phone] Pcp:Mele Lainer, MD Subjective: * Chief Complaints: * ???At Risk FootcarePainful N ail(s) aggrevated by shoes and causing difficulty standing/walking.Possible Infection * HPI: ???At Risk footcare:?Pt States Last PCP Visit:?Date?09/23/2023 * ROS:?General/Constitutional:?Nausea?denies.?Vomiting?denies.?Hunger Thirst?denies.?Loss appetite?denies.?Chills?denies.?Fatigue?denies.?Fever?denies.?Night Sweats?denies.?Unexplained weight loss?denies.?Ophthalmologic:?Blurred [...] Hospitalization/Major Diagno stic Procedure:?endoscopy & colonoscopy 10/18[place] Tamayo issue right ankle 12/31/19 * Family History:?Mother: dece ased, diagnosed with Unspecified heart disease.?Father: , diagnosed with Family history of arthritis, Diabetic - NIDDM, Unspecified essential hypertension, Unspecified cerebral artery occlusion with cerebral infarction.?Son(s): alive.?Spouse: alive.?Siblings: diagnosed with Other malignant neoplasm [...] ,yard work. ?Marital status: . ?Occupation: Retired/ [employer]. * Medications:?Takingaspirin b pastor amLODIPine Besylate Atorvastatin Calcium 40 MG Tablet TAKE 1 TABLET BY MOUTH EVERY DAY Oral Omeprazole Tamsulosin HCl 0.4 MG Capsule 1 capsule Orally Once a dayTimolol Maleate 0.5 % Solution INSTILL 1 DROP IN EACH EYE TWICE A DAY Ophthalmic Valsartan-hydroCHLOROthiazide 80-12.5 MG Tablet Orally vitamin D Taking aspirin baby Taking amLODIPine Besylate Taking Atorvastatin Calcium 40 MG Tablet TAKE 1 TABLET BY MOUTH EVERY DAY Oral Taking Omeprazole Taking Tamsulosin HCl 0.4 MG Capsule 1 capsule Orally Once a dayTaking Timolol Maleate 0.5 % Solution INSTILL 1 [...] and reconciled with the patient * Allergies:?N.K.D.A.yes[Aller eduard Verified] Objective: * Vitals:?Ht: 6ft 2in, Wt:200, BMI:25.68, Shoe size: 10.5, Ht-cm: 187.96 cm, Wt- k.72 kg. * Examination: ???Vascular: ?DP PULSES:? 0/4, B/L.?PT PULSES:? 0/4, B/L.?CAPILLARY FILL TIME:? delayed, all digits, B/L.?SKIN TEMPERTURE GRADIENT OF THE LOWER EXTERMITIES:? decreased, cool to cool, proximal to distal, B/L.?HAIR GROWTH/TEXTURE/ELASTICITY/TURGOR:? decreased, B/L.?PIGMENTATION:? rubrous, B/L.?EDEMA:? 2/4, non-pitting, without aching pain, B/L, Leg(s), Ankle(s), Feet.?VARICOSITIES:?present, moderate, nonpainful, B/L.?CLAUDICATION:?denies, B/L.?REST PAIN:?denies, B/L.?Nails: ?NAILS are:? Elongated, overgrown, dystrophic, lytic, greater than 3mm thick, discolored and friable with crumbly malodorous subungual debris, with pain on palpation, 1-5 B/L.?Dermatologic: ?SKIN FINDINGS:? Skin exam reveals Keratotic lesion(s) located at, Heel(s), B/L .?Abscess/infected nail: ?INSPECTION?Reveals nail incurvation, pain on palpation, groove laceration, inflammation, malodor, localized cellulitis, and purulent abscess with pre- operative size of approximately ( 1-2 ) mm square without exposed bone , Lateral nail border , T5.?General Examination: ?GENERAL APPEARANCE:? Denies fever, chills, malaise, lymphadenopathy.? Assessment: * Assessment: 1.?Tinea unguium - B35.1?2.? Atherosclerosis of [place] artery of both lower extremities, with unspecified presence of clinical manifestation - I70.203?3.?Pain in right toe(s) - M79.674?4.?Pain in left toe(s) - M79.675?5.?Abscess of toe, right - L02.611 (Primary)? Plan: * Treatment: 2.?Atherosclerosis of [place] artery of both lower extremities, with unspecified presence of clinical manifestation?Procedure: 83138-ARWM SKIN LESIONS, 2 TO 4 3.?Tinea unguium?Procedure: 72829-BBCOXTY NAIL, 6 OR MORE * Procedures:?Debride Nail 6-10:?Nail debridement?Nail debridement performed extensively to reduce/remove overall nail length, girth, thickness, subungual debris, and necrotic tissue, by manual and electrical means through the use of a nail nipper and/or dremel, to more viable healthy nail plate or bed tissue 1-5. Silver nitrate used for any petechial bleeding as necessary. Patient chooses, no pharmaceutical tx (18341).?I&D nail abscess:?Type?Single, Abscess.?Anesthesia?3cc of 1 percent Lidocaine Plain local anesthesic utilizing aseptic technique.?Location?Lateral nail border?,?T5.?Procedure?Performed incision and drainage of Single Nail Abscess with use of sterile nail nipper/316 blade. Approximately ( 0.1 ) cc purulent fluid material was drained. The infected devitalized soft tissue was curettaged to healthy bleeding bed. Any affected nail portion was removed to the eponychium . Any evidence of granuloma was also removed at this time. No underlying bone was visualized. There was minimal bleeding as hemostasis was achieved through the temporary use of either a digital tournaquet or the aforementioned local with epinephrine. An application of sterile Bacitracin dressing was performed. Local wound care instructions were discussed and dispensed. Recommended Tylenol or Motrin for pain/discomfort (41930) , CIRCULATION: Pt was advised as to the risk of delayed or nonhealing due to circulation. Pt is to call the office with any questions, concerns, or complications.?Keratoma Treatment:?Parring or Cutting of Benign Hyperkeratotic Lesion(s)?76333 (2-4 Lesions) - The Benign hyperkeratotic lesions, as described above were pared, and/or cut utilizing a sterile #15 blade, tissue nippers, and/or dremel, Q8.? * Procedure Codes:?69587 DRAIN AGE OF SKIN ABSCESS, Modifiers: XS , [id number] DEBRIDE NAIL, 6 OR MORE, Modifiers: XS 88173 TRIM SKIN LESIONS, 2 TO 4, Modifiers: XS , Q8 * Follow Up:?prn * Images: * Sign off status: Completed Addendum: * ? true * Provider:?Gume Salas DPM Date:?2023 Generated for Savannah thomas/Paige/Gricelda on:?07/01/2024 10:07 AM EST History and Physical Notes * HPI (History of Present Illness) Category Sub-Category Detail Notes Category Not es At Risk footcare Pt States Last PCP Visit: Date: Examination Category Sub-Category Detail Notes Category Not es Dermatologic SKIN FINDINGS: Skin exam reveal s Keratotic lesion(s) located at, Heel(s), B/L General Examination GENERAL APPEARANCE: Denies f ever, chills, malaise, lymphadenopathy Vascular DP PULSES (B): 0/4, B/L PT PULSES (B): 0/4, B/L CAPILLARY FILL TIME: delayed, all digits , B/L TEMPERTURE GRADIENT (C): decreased, cool to cool, proximal to distal, B/L TROPHIC CONDITION-TEXTURE/ELASTICITY/TURGOR/HAIR GROWTH (B): decreased, B/L EDEMA (C): 2/4, non-pitting, wi thout aching pain, B/L, Leg(s), Ankle(s), Feet VARICOSITIES: present, moderate, n onpainful, B/L CLAUDICATION (C): denies, B/L REST PAIN: denies, B/L PIGMENTATION: rubrous, B/L Nails NAILS are: Elongated, overg rown, dystrophic, lytic, greater than 3mm thick, discolored and friable with crumbly malodorous subungual debris, with pain on palpation, 1-5 B/L Abscess/infected nail INSPECTION Reveals na il incurvation, pain on palpation, groove laceration, inflammation, malodor, localized cellulitis, and purulent abscess with pre-operative size of approximately ( 1-2 ) mm square without exposed bone , Lateral nail border , T5
--- OUTSIDE RECORDS SUMMARY | 2024-07-01 10:08 | XMS_ITS ---
Author Organization [facility] Address [address] [place] [address] Care Team Providers Care Executive Sales Manager Name Role Phone Ramy RUBIN, Mele Primary Care Provider Gume Maldonado Unavailable [phone] Allergies No Known Allergies REASON FOR VISIT At Risk Footcare, Painful Nail(s) aggrevated by shoes and causing difficulty standing/walking. Medications Medication SIG (Take, Route, Frequency, Duration) Notes Start Date End Date Status Tamsulosin HCl 0.4 MG 1 capsule Orally O nce a day for 30 day(s) Active Timolol Maleate 0.5 % INSTILL 1 DROP IN EACH EYE TWICE A DAY Ophthalmic for 20 Active amLODIPine Besylate Active Atorvastatin Calcium 40 MG TAKE 1 TABLET BY MOUTH EVERY DAY Oral for 90 Active Omeprazole Active vitamin D 11/10/2013 Active aspirin baby 11/10/2013 Active Lisinopril 40mg Not- Taking Lisinopril-hydroCHLOROthi azide 20-12.5 MG TAKE 2 TABLETS ONCE A DAY Oral for 90 Not-Taking Simvastatin Not-Taki ng Valsartan-hydroCHLOROthia zide 80-12.5 MG Orally Active Social History Tobacco Use: Social History [...] tobacco user? No Vital Signs Height 6ft 2 in in 02/15/2024 Weight 200 lbs 02/15/2024 BMI 25.68 kg/m2 02/15/2024 Procedures Procedure Date Ordered Date Performed Result Body Sit e 44940-JKGLFML NAIL, 6 OR MORE 02/15/2024 N/A 06768-PRXT SKIN LESIONS, 2 TO 4 02/15/2024 N/A Encounters Encounter Location Date Provider Diagnosis [facility] [place] [address] [place] [phone] 02/15/2024 Gume Salas Atherosclerosis of [place] artery of both lower extremities, with unspecified presence of clinical manifestation I70.203 ; Tinea unguium B35.1 ; Pain in right toe(s) M79.674 and Pain in left toe(s) M79.675 Assessments Encounter Date Diagnosis (ICD Code) Assessment Notes Treatment Notes Treatment Clinical Notes Section Notes 02/15/2024 Atherosclerosis of [place] artery of both lower extremities, with unspecified presence of clinical manifestation (ICD-10 - I70.203) 02/15/2024 Tinea unguium (ICD-10 - B35.1) 02/15/2024 Pain in right toe(s) (ICD-10 - M79.674) 02/15/2024 Pain in left toe(s) (ICD-10 - M79.675) 02/15/2024 Other Plan Of Treatment Pending Test Test Name Order Date 49769-HVDBRKR NAIL, 6 OR MORE 02/15/2024 48433-MVTO SKIN LESIONS, 2 TO 4 02/15/20 24 Next Appt Details Follow Up: prn, Reason: Provider Name:Gume Salas , 08/18/2024 02:00:00 PM, [address] [facility] [address], [place], [address], Procedure Notes * Category Sub-Category Detail Notes [...] as necessary. Patient chooses, no pharmaceutical tx (94014) Keratoma Treatment Parring or Cutting o f Benign Hyperkeratotic Lesion(s) 11398 ( 2-4 Lesions ) - The Benign hyperkeratotic lesions, as described above were pared, and/or cut utilizing a sterile 15 blade, tissue nippers, and/or Sumeet david8 Progress Notes * Telly SILVERMAN WDOB: 0 (73 yo M)Acc No.[id number]:02/15/2024 Progress Note Patient:?Telly Silverman W Provider:?Gume Salas DPM :1950???Age:73 Y???Sex:Male Danny e:02/15/2024 Address:[address] [place] [id number] Pcp:Mele Mccann MD Subjective: * Chief Complaints: * ???At Risk FootcarePainful N ail(s) aggrevated by shoes and causing difficulty standing/walking. * HPI: ???At Risk footcare:?Pt States Last PCP Visit:?Date?09/23/2023 States has an appt with PCP - Oct * ROS:?General/Constitutional:?Nausea?denies.?Vomiting?denies.?Hunger Thirst?denies.?Loss appetite?denies.?Chills?denies.?Fatigue?denies.?Fever?denies.?Night Sweats?denies.?Unexplained weight loss?denies.?Ophthalmologic:?Blurred [...] * Hospitalization/Major Diagno stic Procedure:?endoscopy & colonoscopy Tamayo, vein issue right ankle 12/31/19 * Family History:?Mother: dece ased, diagnosed with Unspecified heart disease.?Father: , diagnosed with Diabetic - NIDDM, Unspecified essential hypertension, Unspecified cerebral artery occlusion with cerebral infarction, Family history of arthritis.?Son(s): alive.?Spouse: alive.?Siblings: diagnosed with Other malignant neoplasm [...] ,yard work. ?Marital status: . 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 * Medications:?Takingaspirin b pastor amLODIPine Besylate Atorvastatin [...] patient * Allergies:?N.K.D.A.yes[Aller gies Verified] Objective: * Vitals:?Ht:6ft 2 in, Wt:200, BMI:25.68, Shoe size:10.5, Ht-cm: 187.96 cm, Wt-k.72 kg. * Examination: ???Vascular: ?DP PULSES:? 0/4, [...] reveals Keratotic lesion(s) located at, Heel(s), B/L .? Assessment: * Assessment: 1.?Tinea unguium - B35.1?2.? Atherosclerosis of [place] artery of both lower extremities, with unspecified presence of clinical manifestation - I70.203?3.?Pain in right toe(s) - M79.674?4.?Pain in left toe(s) - M79.675? Plan: * Treatment: 2.?Atherosclerosis of [place] artery of both lower extremities, with unspecified presence of clinical manifestation?Procedure: 10831-CAYI SKIN LESIONS, 2 TO 4 * Procedures:?Debride Nail 6-10:?Nail debridement?Nail debridement performed extensively to reduce/remove overall nail length, girth, thickness, subungual debris, and necrotic tissue, by manual and electrical means through the use of a nail nipper and/or dremel, to more viable healthy nail plate or bed tissue 6-10. Silver nitrate used for any petechial bleeding as necessary. Patient chooses, no pharmaceutical tx (02167).?Keratoma Treatment:?Parring or Cutting of Benign Hyperkeratotic Lesion(s)?31508 ( 2-4 Lesions ) - The Benign hyperkeratotic lesions, as described above were pared, and/or cut utilizing a sterile 15 blade, tissue nippers, and/or dremel , Q8.? * Procedure Codes:?37539 DEBRI DE NAIL, 6 OR MORE, Modifiers: XS 82381 TRIM SKIN LESIONS, 2 TO 4, Modifiers: XS , Q8 * Follow Up:?prn * Images: * Sign off status: Completed true * Provider:?Gume Salas DPM Date:?2023 Generated for Savannah thomas/Paige/eTransmitting on:?07/01/2024 10:07 AM EST History and Physical Notes * HPI (History of Present Illness) Category Sub-Category Detail Notes Category Not es At Risk footcare Pt States Last PCP Visit: Date: 09/23/2023 States has an appt with PCP - Oct Examination Category Sub-Category Detail Notes Category Not es Dermatologic SKIN FINDINGS: Skin exam reveal s Keratotic lesion(s) located at, Heel(s), B/L Vascular DP PULSES (B): 0/4, [...]
[2024-07-01 10:16] LABS: MANUAL DIFF FLAG NO
[2024-07-01 11:03] LABS: Basophils Absolute Auto 0.1 X10*3/uL (0.0-0.2); Basophils Percent Auto 1.1 % (0-2); Eosinophils Absolute Auto 0.7 X10*3/uL (0.0-0.4); Eosinophils Percent Auto 13.5 % (0-4); Hemoglobin 13.6 g/dl (14.0-18.0); Imm Gran Abs Auto 0.01 X10*3/uL (0.00-0.03); Imm Gran Pct Auto 0.2 % (0.0-0.4); Lymphocytes Absolute Auto 1.2 X10*3/uL (1.2-4.9); Lymphocytes Percent Auto 22.6 % (20-40); Mean Corpuscular Hemoglobin 30.8 pg (27.0-33.0); Mean Corpuscular Volume 90.7 fL (80.0-98.0); Mean Platelet Volume 9.4 fL (9.4-12.4); Monocytes Absolute Auto 0.5 X10*3/uL (0.1-1.2); Monocytes Percent Auto 9.3 % (2-11); Neutrophils Absolute Auto 2.9 x10*3/uL (2.0-8.3); Neutrophils Percent Auto 53.3 % (45-73); Platelet Count 225 X10*3/uL (160-400); Red Blood Count 4.41 X10*6/uL (4.60-5.80); White Blood Count 5.5 X10*3/uL (4.8-10.8)
[2024-07-01 12:02] LABS: Cholesterol 132 mg/dL (<200); HDL Cholesterol 46 mg/dL (>40); LDL Cholesterol Calculated 74 mg/dL (<100); Triglycerides 61 mg/dL (<150)
[2024-07-01 12:05] LABS: Prostate Specific Antigen Scr 1.99 ng/mL (<0.05-4.0)
== END 2024-07-01 10:04 | disposition home or self-care (01) ==
LOC: HO.LAB 10:03
PROVIDERS: PCP Internal Medicine; Visit Provider Internal Medicine
DX: Z00.00 Encounter for general adult medical examination without abnormal findings (principal); Z13.220 Encounter for screening for lipoid disorders; D64.9 Anemia, unspecified; Z12.5 Encounter for screening for malignant neoplasm of prostate
CPT/HCPCS: 36415; 80061; 84153; 85025

== ENCOUNTER 2024-07-14 09:12 | Outpatient (AMB) | payer MEDICARE, SELFPAY ==
[2024-07-14 09:13] VITALS: BP 128/78; PULSE 88; O2SAT 98; BMI 26.3
--- NOTE | 2024-07-14 09:13 | A.OFFPC_ITS ---
Vital Signs 07/14/24 09:13 Height 6 ft 1 in Weight 199 lb BMI 26.3 BP 128/78 Blood Pressure Location Lt brachial Position Sitting Pulse 88 Pulse Source Pulse Oximeter Pulse Oximetry (%) 98 Oxygen Delivery Method Room Air Intake Visit Reasons: 3mth f/u Allergies No Known Allergies Allergy (Verified 07/14/24 09:14) Medication List - Last Reconciled 07/14/24 by Mele Mccann MD amlodipine 5 mg PO DAILY aspirin (Adult Low Dose Aspirin) 81 mg PO DAILY atorvastatin 80 mg PO DAILY ezetimibe 10 mg PO DAILY finasteride 5 mg PO DAILY 90 days losartan-hydrochlorothiazide 100-25 mg 1 tab PO DAILY omeprazole 10 mg PO DAILY tamsulosin (Flomax) 0.4 mg PO BEDTIME 90 days timolol 0.5% 1 drp ophthalmic (eye) ONCE Tobacco use date assessed: 07/14/24 Fall risk assessment: No Falls in past year Last assessed Fall Risk: 07/14/24 Dental Screening Dental Screen Date: 07/14/24 Did you have a dental visit in the last 12 months?: No Did you have a dental problem in the last 6 months where you did not have access to dental care?: No Was dental information given to patient?: Patient has dentist HPI 3mth f/u HPI Details hypertension on rx; doing well; compliant [facility] Medical History Screening for diabetes mellitus Urinary hesitancy Urinary urgency Other and unspecified hyperlipidemia Atherosclerotic cardiovascular disease Hypertension Surgical History History of discectomy H/O endoscopy History of colonoscopy History of eye surgery History of colonoscopy History of lumbar surgery History of cholecystectomy Family History Father No problems noted. Mother No problems noted. Sister No problems noted. Social History Housing: House Alcohol intake: never Patient Tobacco Use Status: Former Tobacco user Tobacco use type: Cigarette e-Cigarette/Vaping Use: Never Used Second Hand Smoke Exposure: Yes service: No Current occupational status: retired Current occupational exposures/hazards: No Cognitive needs: No Hearing needs: No Vision needs: Yes (glasses) Questionnaire PHQ-9 Over the last 2 weeks, how often have you been bothered by any of the following problems? 1. Little interest or pleasure in doing things: not at all 2. Feeling down, depressed, or hopeless: not at all 3. Trouble falling or staying asleep, or sleeping too much: not at all 4. Feeling tired or having little energy: not at all 5. Poor appetite or overeating: not at all 6. Feeling bad about yourself - or that you are a failure or have let yourself or your family down: not at all 7. Trouble concentrating on things, such as reading the newspaper or watching television: not at all 8. Moving or speaking so slowly that other people could have noticed. Or the opposite - being so fidgety or restless that you have been moving around a lot more than usual: not at all 9. Thoughts that you would be better off or of hurting yourself in some way: not at all Total score: 0 Depression Screening Interpretation: Negative Depression Screening Done: Yes 24875 - PHQ-9 Billing: Yes Source: Developed by Drs. Rajesh Foster, Sabina Arora, Thiago Zavala and colleagues, with an educational lance from [employer]. Thrive Questionnaire Date Thrive assessed: 07/14/24 I am a: Patient What is your living situation today?: I have a steady place to live Within the past 12 months, did the food you bought not last and you didn't have the money to get more?: Never true Within the past 12 months, did you worry whether your food would run out before you got money to buy more?: Never true Do you have trouble paying for medicines?: No Do you have trouble getting transportation to medical appointments?: No Do you have trouble paying your heating and electricity bill?: No Do you have trouble taking care of your child, family member or friend?: No Do you have trouble with day-to-day activities such as bathing, preparing meals, shopping, managing finances, etc.?: No Are you currently unemployed and looking for a job?: No Are you interested in more education?: No Currently or been in a relationship where the following occur: No concerns reported THRIVE Score: 0 AUDIT C Alcohol Use Questionnaire (AUDIT-C) 1. How often do you have a drink containing alcohol?: Never Total Score: 0 WILDA-7 AMB Questionnaire WILDA-7 Date WILDA - 7 assessed: 07/14/24 Feeling nervous, anxious, or on edge: 0 = Not at all Not being able to stop or control worryin = Not at all Worrying too much about different things: 0 = Not at all Trouble relaxin = Not at all Being so restless that it is hard to sit still: 0 = Not at all Becoming easily annoyed or irritable: 0 = Not at all Feeling afraid as if something awful might happen: 0 = Not at all Total WILDA-7 score (0-4 normal; 5-9 mild; 10-14 moderate; 15-21 severe): 0 Source: Developed by Drs. Rajesh Foster, Sabian Arora, Thiago Zavala and colleagues, with an educational lance from [employer]. Review of Systems Const Denies chills, Denies headache(s) and Denies weight loss ENT Denies headache(s) Card Denies chest pain, Denies syncope, Denies irregular heart rhythm and Denies dyspnea Resp Denies chest congestion, Denies cough and Denies dyspnea GI Denies abdominal pain, Denies change in stool character, Denies nausea and Denies vomiting Musc Denies deformity and Denies joint swelling Neuro Denies syncope and Denies headache(s) Physical exam (Primary Care) Vital Signs: Last Vital Signs Pulse 88 07/14/24 09:13 BP 128/78 07/14/24 09:13 Pulse Ox 98 07/14/24 09:13 Oxygen Delivery Method Room Air 07/14/24 09:13 BMI result Body Mass Index 26.3 Tobacco/Smoking Status: Tobacco use Status Tobacco use date assessed 07/14/24 07/14/24 09:20 Patient Tobacco Use Status Former Tobacco user 07/14/24 09:20 Tobacco use type Cigarette 07/14/24 09:20 e-Cigarette/Vaping Use Never Used 07/14/24 09:20 PHQ-9: PHQ-9 Score PHQ-9: Total score 0 07/14/24 09:20 Depression Screening Interpretation: Negative Thrive Assessment: Date of Thrive Assessment Date Thrive assessed 07/14/24 07/14/24 09:20 Currently or been in a relationship where the following occur: No concerns reported Const General: cooperative, comfortable, no acute distress and alert Neck Neck: Yes no lymphadenopathy Thyroid: Thyroid normal Resp Effort & Inspection: normal respiratory effort Auscultation: clear to auscultation bilaterally Percussion: percussion normal Cardio Jugular venous distension: no JVD Palpation: normal PMI Rate: regular rate Rhythm: regular rhythm Heart sounds: S1 normal heart sound present and S2 normal heart sound present GI Inspection: Yes normal to inspection Palpation (GI): No hepatosplenomegaly present Skin General skin exam: no rashes or lesions noted Extrem General: Yes no clubbing, cyanosis or edema Coding Level of Care Code Est Pt Level 3 (07494) Diagnoses Hypertension I10 Additional Codes PHQ-9 - 20359 - PHQ-9 Billing: Yes ([id number]) Assessment & Plan Assessment & Plan (1) Hypertension: Code(s): I10 - Essential (primary) hypertension Category: Medical Plan: stable; same rx
--- OUTSIDE RECORDS SUMMARY | 2024-07-14 09:27 | XMS_ITS | Patient Health Record ---
Author Organization [facility] Address [address] [facility] [place] [address] Care Team Providers Care Elementary Assistant Teacher Name Role Phone Mele Mccann MD Primary Care Provider Gume Maldonado Unavailable [phone] Allergies No Known Allergies Reason For Referral [...] W/U Status Risk Notes Problem Atherosclerosis of habematolel arteries of the extremities (112106090058539) Atherosclerosis of habematolel artery of both lower extremities, with unspecified presence of clinical manifestation (I70.203) Active confirmed Vital Signs Height 6ft 2in in 05/19/2024 Weight 200 lbs 05/19/2024 BMI 25.68 kg/m2 05/19/2024 Procedures Procedure Date Ordered Date Performed Result Body Sit e 69265-DDLQQBF NAIL, 6 OR MORE 08/17/2023 N/A 59720-ONPV SKIN LESIONS, 2 TO 4 08/17/2023 N/A 57126-NBBVRAX NAIL, 6 OR MORE 11/16/2023 N/A 52791 I&D ABSCESS- SIMPLE,SINGLE 11/16/2023 N/A 90936-JWSX SKIN LESIONS, 2 TO 4 11/16/2023 N/A 30407-DSPCMHB NAIL, 6 OR MORE 02/15/2024 N/A 64298-UUGD SKIN LESIONS, 2 TO 4 02/15/2024 N/A 85225-HASWVYW NAIL, 6 OR MORE 05/19/2024 N/A 72429-OHIL SKIN LESIONS, 2 TO 4 05/19/2024 N/A Encounters Encounter Location Date Provider Diagnosis [address] [address] 08/17/2023 Gume Salas Atherosclerosis of habematolel artery of both lower extremities, with unspecified presence of clinical manifestation I70.203 ; Tinea unguium B35.1 ; Pain in right toe(s) M79.674 and Pain in left toe(s) M79.[address] [address] 11/16/2023 Gumeanupama AponteJosue Atherosclerosis of habematolel artery of both lower extremities, with unspecified presence of clinical manifestation I70.203 ; Tinea unguium B35.1 ; Pain in right toe(s) M79.674 ; Pain in left toe(s) M79.675 and Abscess of toe, right L02.[address] [address] 02/15/2024 Gume Salas Atherosclerosis of habematolel artery of both lower extremities, with unspecified presence of clinical manifestation I70.203 ; Tinea unguium B35.1 ; Pain in right toe(s) M79.674 and Pain in left toe(s) M79.675 [facility] [place] [address] [address] 05/19/2024 Gume Salsa Atherosclerosis of habematolel artery of both lower extremities, with unspecified presence of clinical manifestation I70.203 ; Tinea unguium B35.1 ; Pain in right toe(s) M79.674 and Pain in left toe(s) M79.675 Assessments Encounter Date Diagnosis (ICD Code) Assessment Notes Treatment Notes Treatment Clinical Notes Section Notes 08/17/2023 Tinea unguium (ICD-10 - B35.1) 08/17/2023 Atherosclerosis of habematolel artery of both lower extremities, with unspecified presence of clinical manifestation (ICD-10 - I70.203) 11/16/2023 Tinea unguium (ICD-10 - B35.1) 11/16/2023 Atherosclerosis of habematolel artery of both lower extremities, with unspecified presence of clinical manifestation (ICD-10 - I70.203) 02/15/2024 Tinea unguium (ICD-10 - B35.1) 02/15/2024 Atherosclerosis of habematolel artery of both lower extremities, with unspecified presence of clinical manifestation (ICD-10 - I70.203) 05/19/2024 Tinea unguium (ICD-10 - B35.1) 05/19/2024 Atherosclerosis of habematolel artery of both lower extremities, with unspecified [...] Treatment Pending Test Test Name Order Date 35526-ITVPHBZ NAIL, 6 OR MORE 03/27/2011 70859-NNTAVKC NAIL, 6 OR MORE 06/12/2011 82106-XIQAIRY NAIL, 6 OR MORE 09/11/2011 80050-QCIARMH NAIL, 6 OR MORE 12/18/2011 55087-YIRIQXL NAIL, 6 OR MORE 03/18/2012 33050-TAWOPOK NAIL, 6 OR MORE 06/17/2012 65395-VSJPTZR NAIL, 6 OR MORE 09/02/2012 56173-XXQYPCA NAIL, 6 OR MORE 11/11/2012 88466-WNIOZKL NAIL, 6 OR MORE 02/10/2013 23729-JKCEQPG NAIL, 6 OR MORE 05/19/2013 52075-MHNZGVX NAIL, 6 OR MORE 08/18/2013 73861-BQCXTJL NAIL, 6 OR MORE 11/10/2013 23684-VTGVCQV NAIL, 6 OR MORE 02/16/2014 98298-YMNVNSJ NAIL, 6 OR MORE 05/18/2014 69251-GFCTWQR NAIL, 6 OR MORE 08/17/2014 60937-PTWEIBZ NAIL, 6 OR MORE 11/16/2014 85222-OEVXTNP NAIL, 6 OR MORE 02/15/2015 59897-KEXJEFH NAIL, 6 OR MORE 05/10/2015 02795-UGFJIXC NAIL, 6 OR MORE 08/09/2015 17663-ZITCNBA NAIL, 6 OR MORE 11/07/2015 45734-SRKKSXI NAIL, 6 OR MORE 02/06/2016 93663-PMIPCVU NAIL, 6 OR MORE 05/07/2016 89818-CTQYOBO NAIL, 6 OR MORE 08/06/2016 52417-JATAAHN NAIL, 6 OR MORE 11/05/2016 86394-EIGCLPV NAIL, 6 OR MORE 02/04/2017 67261-VGXXKQA NAIL, 6 OR MORE 05/06/2017 48429-NSYYIBV NAIL, 6 OR MORE 08/06/2017 51433-CAGENBZ NAIL, 6 OR MORE 11/09/2017 75430-SARKGSP NAIL, 6 OR MORE 02/08/2018 43286-GUFYLNS NAIL, 6 OR MORE 05/10/2018 21150-GTEZXXC NAIL, 6 OR MORE 08/11/2018 22388-DFFERNW NAIL, 6 OR MORE 11/11/2018 24485-SHUABZI NAIL, 6 OR MORE 02/10/2019 05493-OVZGPHD NAIL, 6 OR MORE 05/19/2019 10687-CTSPTDC NAIL, 6 OR MORE 10/03/2019 73199-GGEZDKD NAIL, 6 OR MORE 01/02/2020 23382-ERIPMTB NAIL, 6 OR MORE 03/29/2020 27098-QRJOVAF NAIL, 6 OR MORE 07/09/2020 28710-XPEBBYT NAIL, 6 OR MORE 10/08/2020 09610-QDVJCCT NAIL, 6 OR MORE 01/10/2021 37869-GDQKCKJ NAIL, 6 OR MORE 04/10/2021 82728-LIISVWN NAIL, 6 OR MORE 07/11/2021 35752-TAKOWJM NAIL, 6 OR MORE 10/14/2021 43922-FIRUUNA NAIL, 6 OR MORE 01/15/2022 15519-XOANIWN NAIL, 6 OR MORE 04/23/2022 88866-ZVRHHKG NAIL, 6 OR MORE 09/03/2022 15860-BNKBJSP NAIL, 6 OR MORE 11/17/2022 29310-QHGAZAC NAIL, 6 OR MORE 02/16/2023 91463-LLSGPQB NAIL, 6 OR MORE 05/18/2023 83787-QPORVAN NAIL, 6 OR MORE 08/17/2023 65400-WVUCVAY NAIL, 6 OR MORE 11/16/2023 92416-DTSZHUX NAIL, 6 OR MORE 02/15/2024 84281-XRSUERN NAIL, 6 OR MORE 05/19/2024 52902-Ctpe Destruction, -02/15/2015 09361-Xedc Destruction, -11/16/2014 62558-Vliv Destruction, -08/17/2014 48626-Jdtx Destruction, -06/12/2011 34695-Ipdy Destruction, 1-05/18/2014 85846-Qstl Destruction, -06/17/2012 60134-Crtn Destruction, -03/18/2012 53275-Patw Destruction, -12/18/2011 98074-Dgoe Destruction, 1-09/11/2011 59871-Gsrh Destruction, -03/27/2011 32652-Dptyhxoi Plate 06/12/2011 89043-Wkyswrax Plate 09/11/2011 38715-Nvbvhqhp Plate 12/18/2011 86310-Fueugpxk Plate 03/18/2012 16482-Pteyxoha Plate 06/17/2012 37898-Uexnekwp Plate 05/18/2014 88431-Jgftcjog Plate 02/16/2014 55130-Uphzosir Plate 11/10/2013 15488-Tksbgqnc Plate 08/18/2013 96754-Xdmmrodv Plate 05/19/2013 47059-Imsceqig Plate 02/10/2013 56328-Pncboitq Plate 11/11/2012 30317-Xbghzlcx Plate 08/17/2014 92485-Opgnesev Plate 11/16/2014 96391-Jtqzywmx Plate 02/15/2015 40221-Pcrwmmtc Plate 08/09/2015 78148-Xschfsrg Plate 05/10/2015 55967-Trmikrtg Plate 11/11/2018 99576-Ljpwtuwe Plate 08/11/2018 41803-Oigwadyj Plate 05/10/2018 34072-Owctmexj Plate 08/06/2017 97596-Irfrwjnp Plate 11/17/2022 31495-Xtxlsluw Plate 09/03/2022 72565-Tbbxebow Plate 04/23/2022 90240-Kuyuzcxd Plate 01/15/2022 42691-Dysmuwxp Plate 10/14/2021 99623-Hbzqxjmg Plate 07/11/2021 57363-Mfveeiea Plate 04/10/2021 79373-Tlapzxot Plate 01/10/2021 48772-Uvlfrcjl Plate 10/08/2020 49254-Fazrpgfl Plate 07/09/2020 84582-Dovhbald Plate 03/29/2020 96523-Xrikcqku Plate 01/02/2020 23529-Vhgxbpse Plate 10/03/2019 80771-Wagmyijs Plate 05/19/2019 58724-Jqctjqkl Plate 02/10/2019 51565-Bsxqzczz Plate Each Additional 34449-Udfgdshz Plate Each Additional 10/2020 38155-Xubjveby Plate Each Additional 11/2020 68925-Qdftgham Plate Each Additional 02/2021 49911-Wbivuxae Plate Each Additional 11/2014 71173-Wlafmdwx Plate Each Additional 10/2015 97677-Kppietko Plate Each Additional 23976-Jcmynkkv Plate Each Additional 49509-Wtmtxtau Plate Each Additional 06/2015 58939-Lvrsrhsn Plate Each Additional 70535-Fbsotqqj Plate Each Additional 02/2014 89016-Ifycajdk Plate Each Additional 31845-Vwdkpbii Plate Each Additional 25832-Sugndfrt Plate Each Additional 20781-Jazqsbyk Plate Each Additional 02/2012 59059-LGE 01/24/2021 84116- Debride <25 sq cm 10/08/2020 65770-HAYLYTT SKIN/TISSUE 02/07/2021 76848 I&D ABSCESS- SIMPLE,SINGLE 024 84572 I&D ABSCESS- SIMPLE,SINGLE 011 13654-GWJS SKIN LESIONS, 2 TO 4 05/19/20 24 67844-KIRZ SKIN LESIONS, 2 TO 4 02/15/20 24 18648-JARW SKIN LESIONS, 2 TO 4 11/16/19 24 72922-XZTY SKIN LESIONS, 2 TO 4 11/18/19 23 50147-WKIA SKIN LESIONS, 2 TO 4 02/17/20 23 55500-LEIM SKIN LESIONS, 2 TO 4 08/17/19 24 03466-MKIU SKIN LESIONS, 2 TO 4 05/18/20 23 22201-HEIM SKIN LESIONS, 2 TO 4 09/04/19 23 87623-Wjbl. Subungual Hematoma 3 Next Appt Details Provider Name:Gume Nixon Josue , 08/18/2024 02:00:00 PM, [address] [facility], [place] [address], [place], [address], Insurance Providers Payer Name Payer Address Payer Phone Subscriber Number Group Number Insured Name Patient Relationship to Insured Coverage Start Date Coverage End Date Medicare National Govt [employer] [address] [place] [address] [id number] Telly Silverman Self - patient is the insured 6 [employer] [address] [place] [address] [phone] [id number] Telly Silverman Self - patient is the [...]
--- OUTSIDE RECORDS SUMMARY | 2024-07-14 09:27 | XMS_ITS ---
Author Organization [facility] Address [address] [facility] [place] [address] Care Team Providers Care Pewter Fabricator Name Role Phone Ramy RUBIN, Mele Primary Care Provider Gume Maldonado Unavailable [phone] Allergies No Known Allergies REASON FOR VISIT [...] Ordered Date Performed Result Body Sit e 19499-JVCCQDL NAIL, 6 OR MORE 05/19/2024 N/A 21773-WJSV SKIN LESIONS, 2 TO 4 05/19/2024 N/A Encounters Encounter Location Date Provider Diagnosis [facility] [place] [address] [place] [address] 05/19/2024 Gume Salas Atherosclerosis of [place] artery of both lower extremities, with unspecified presence of clinical manifestation I70.203 ; Tinea unguium B35.1 ; Pain in right toe(s) M79.674 and Pain in left toe(s) M79.675 Assessments Encounter Date Diagnosis (ICD Code) Assessment Notes Treatment Notes Treatment Clinical Notes Section Notes 05/19/2024 Atherosclerosis of [place] artery of both lower extremities, with unspecified presence of clinical manifestation (ICD-10 - I70.203) 05/19/2024 Tinea unguium (ICD-10 - B35.1) 05/19/2024 Pain in right toe(s) (ICD-10 - M79.674) 05/19/2024 Pain in left toe(s) (ICD-10 - M79.675) 05/19/2024 Other Plan Of Treatment Pending Test Test Name Order Date 25338-SJDOUAE NAIL, 6 OR MORE 05/19/2024 24434-FCCS SKIN LESIONS, 2 TO 4 05/19/20 24 Next Appt Details Follow Up: prn, Reason: Provider Name:Gume Salas , 08/18/2024 02:00:00 PM, [address] [facility], [place] [address], [place], [address], Procedure Notes * Category Sub-Category Detail Notes [...] use of a nail nipper and/or dremel-type roll grinder operator, to a more viable healthy nail plate or bed tissue 6-10. Silver nitrate used for any petechial bleeding as necessary. Definitive antifungal treatment options have been reviewed and discussed with the patient. The patient chooses, no pharmaceutical tx - 75036 Keratoma Treatment Parring or Cutting o f Benign Hyperkeratotic Lesion(s) (-56) 2-4 Lesions - The Benign hyperkeratotic lesions, as described in exam, were pared, and/or cut utilizing a sterile 15 blade, tissue nippers, and/or dremel - 25460, Q8 Progress Notes * KOBIDarryl DESIRne WDOB: 0 (73 yo M)Acc No.[id number]:05/19/2024 Progress Note Patient:?Telly SILVERMAN W Provider:?Gume Salas DPM :1950???Age:73 Y???Sex:Male Danny e:05/19/2024 Address:[address] [place] [phone] Pcp:Mele Mccann MD Subjective: * Chief Complaints: [...] ,yard work. ?Marital status: . 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 * Medications:?Takingaspirin b pastor amLODIPine Besylate Atorvastatin [...] Assessment: 1.?Tinea unguium - B35.1???2 .?Atherosclerosis of [place] artery of both lower extremities, with unspecified presence of clinical manifestation - I70.203 (Primary)???3.?Pain in right toe(s) - M79.674???4.?Pain in left toe(s) - M79.675??? Plan: * Treatment: 2.?Tinea unguium?Procedure: 35335-FADKCTA NAIL, 6 OR MORE * Procedures:?Debride Nail [...] use of a nail nipper and/or dremel-type roll grinder operator, to a more viable healthy nail plate or bed tissue 6-10. Silver nitrate used for any petechial bleeding as necessary. Definitive antifungal treatment options have been reviewed and discussed with the patient. The patient chooses, no pharmaceutical tx - 34288.?Keratoma Treatment:?Parring or Cutting of Benign Hyperkeratotic Lesion(s)?(-56) 2-4 Lesions - The Benign hyperkeratotic lesions, as described in exam, were pared, and/or cut utilizing a sterile 15 blade, tissue nippers, and/or dremel - 93814, Q8.? * Procedure Codes:?40201 DEBRI DE NAIL, 6 OR MORE, Modifiers: XS 63956 TRIM SKIN LESIONS, 2 TO 4, Modifiers: XS , Q8 * Follow Up:?prn * Images: * Sign off status: Completed true * Provider:Kirit Salas DPM Date:?2023 Generated for Savannah thomas/Paige/Gricelda on:?07/14/2024 09:26 AM EST History and Physical Notes * [...]
--- OUTSIDE RECORDS SUMMARY | 2024-07-14 09:27 | XMS_ITS ---
Author Organization [facility] Address [address] [facility] [address] Care Team Providers Care Rn Wound Care Name Role Phone Ramy RUBIN, Mele Primary Care Provider Gume Maldonado Unavailable [phone] Allergies No Known Allergies REASON FOR VISIT [...] Ordered Date Performed Result Body Sit e 16097-MBAELEO NAIL, 6 OR MORE 02/15/2024 N/A 93530-AISZ SKIN LESIONS, 2 TO 4 02/15/2024 N/A Encounters Encounter Location Date Provider Diagnosis [facility] [place] [address] [place] [address] 02/15/2024 Gume Salas Atherosclerosis of [place] artery of both lower extremities, with unspecified presence of clinical manifestation I70.203 ; Tinea unguium B35.1 ; Pain in right toe(s) M79.674 and Pain in left toe(s) M79.675 Assessments Encounter Date Diagnosis (ICD Code) Assessment Notes Treatment Notes Treatment Clinical Notes Section Notes 02/15/2024 Atherosclerosis of [place] artery of both lower extremities, with unspecified presence of clinical manifestation (ICD-10 - I70.203) 02/15/2024 Tinea unguium (ICD-10 - B35.1) 02/15/2024 Pain in right toe(s) (ICD-10 - M79.674) 02/15/2024 Pain in left toe(s) (ICD-10 - M79.675) 02/15/2024 Other Plan Of Treatment Pending Test Test Name Order Date 28818-XTZSPMK NAIL, 6 OR MORE 02/15/2024 23117-CKHS SKIN LESIONS, 2 TO 4 02/15/20 24 Next Appt Details Follow Up: prn, Reason: Provider Name:Gume Salas , 08/18/2024 02:00:00 PM, [address] [facility], [place] [address], [place], [address], Procedure Notes * Category Sub-Category Detail Notes [...] as necessary. Patient chooses, no pharmaceutical tx (23343) Keratoma Treatment Parring or Cutting o f Benign Hyperkeratotic Lesion(s) 14180 ( 2-4 Lesions ) - The Benign hyperkeratotic lesions, as described above were pared, and/or cut utilizing a sterile 15 blade, tissue nippers, and/or Sumeet david8 Progress Notes * Telly SILVERMAN WDOB: 0 (73 yo M)Acc No.[id number]:02/15/2024 Progress Note Patient:?Telly Silverman W Provider:?Gume Salas DPM :1950???Age:73 Y???Sex:Male Danny e:02/15/2024 Address:[address] [place] [phone] Pcp:Mele Mccann MD Subjective: * Chief Complaints: [...] ,yard work. ?Marital status: . 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 * Medications:?Takingaspirin b pastor amLODIPine Besylate Atorvastatin [...] Assessment: 1.?Tinea unguium - B35.1?2.? Atherosclerosis of [place] artery of both lower extremities, with unspecified presence of clinical manifestation - I70.203?3.?Pain in right toe(s) - M79.674?4.?Pain in left toe(s) - M79.675? Plan: * Treatment: 2.?Atherosclerosis of [place] artery of both lower extremities, with unspecified presence of clinical manifestation?Procedure: 70884-NLNO SKIN LESIONS, 2 TO 4 * Procedures:?Debride Nail 6-10:?Nail debridement?Nail debridement performed extensively to reduce/remove overall nail length, girth, thickness, subungual debris, and necrotic tissue, by manual and electrical means through the use of a nail nipper and/or dremel, to more viable healthy nail plate or bed tissue 6-10. Silver nitrate used for any petechial bleeding as necessary. Patient chooses, no pharmaceutical tx (85120).?Keratoma Treatment:?Parring or Cutting of Benign Hyperkeratotic Lesion(s)?94724 ( 2-4 Lesions ) - The Benign hyperkeratotic lesions, as described above were pared, and/or cut utilizing a sterile 15 blade, tissue nippers, and/or dremel , Q8.? * Procedure Codes:?36916 DEBRI DE NAIL, 6 OR MORE, Modifiers: XS 66003 TRIM SKIN LESIONS, 2 TO 4, Modifiers: XS , Q8 * Follow Up:?prn * Images: * Sign off status: Completed true * Provider:?Gume Salas DPM Date:?2023 Generated for Savannah thomas/Paige/eTransmitting on:?07/14/2024 09:27 AM EST History and Physical Notes * [...]
--- OUTSIDE RECORDS SUMMARY | 2024-07-14 09:27 | XMS_ITS ---
Author Organization [facility] Address [address] [place] [address] Care Team Providers Care Audit Intern Name Role Phone Ramy RUBIN, Mele Primary Care Provider Gume Maldonado Unavailable [phone] Allergies No Known Allergies REASON FOR VISIT [...] Ordered Date Performed Result Body Sit e 74575-RATCLYZ NAIL, 6 OR MORE 11/16/2023 N/A 48071 I&D ABSCESS- SIMPLE,SINGLE 11/16/2023 N/A 51813-DBMB SKIN LESIONS, 2 TO 4 11/16/2023 N/A Encounters Encounter Location Date Provider Diagnosis [facility] [place] [address] [place] [id number] 11/16/2023 Gume Salas Atherosclerosis of [place] artery of both lower extremities, with unspecified presence of clinical manifestation I70.203 ; Tinea unguium B35.1 ; Pain in right toe(s) M79.674 ; Pain in left toe(s) M79.675 and Abscess of toe, right L02.611 Assessments Encounter Date Diagnosis (ICD Code) Assessment Notes Treatment Notes Treatment Clinical Notes Section Notes 11/16/2023 Atherosclerosis of [place] artery of both lower extremities, with unspecified [...] INSTRUCTIONS.pdf) Pending Test Test Name Order Date 05231-FTRFXKT NAIL, 6 OR MORE 11/16/2023 01485 I&D ABSCESS- SIMPLE,SINGLE 024 74589-OGLI SKIN LESIONS, 2 TO 4 11/16/19 24 Next Appt Details Follow Up: prn, Reason: Provider Name:Gume Hussain AponteJosue , 08/18/2024 02:00:00 PM, [address] [address], [place], [address], Procedure Notes * Category Sub-Category Detail Notes [...] as necessary. Patient chooses, no pharmaceutical tx (81390) I&D nail abscess Location Lateral nail arsalan [...] dispensed. Recommended Tylenol or Motrin for pain/discomfort (25112) , CIRCULATION: Pt was advised as to the risk of delayed or nonhealing due to circulation. Pt is to call the office with any questions, concerns, or complications Type Single, Abscess Anesthesia 3cc of 1 percent Lid ocaine Plain local anesthesic utilizing aseptic technique Keratoma Treatment Parring or Cutting o f Benign Hyperkeratotic Lesion(s) 94208 (2-4 Lesions) - The Benign hyperkeratotic lesions, as described above were pared, and/or cut utilizing a sterile #15 blade, tissue nippers, and/or dremel, Q8 Progress Notes * Telly SILVERMAN WDOB: 0 (73 yo M)Acc No.[id number]:11/16/2023 Progress Note Patient:?Telly Silverman W Provider:?Gume Salas DPM :1950???Age:73 Y???Sex:Male Danny e:11/16/2023 Address:[address] [place] [address], [id number] Pcp:Mele Lainer, MD Subjective: * Chief Complaints: [...] ,yard work. ?Marital status: . 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 * Medications:?Takingaspirin b pastor amLODIPine Besylate Atorvastatin [...] Assessment: 1.?Tinea unguium - B35.1?2.? Atherosclerosis of [place] artery of both lower extremities, with unspecified presence of clinical manifestation - I70.203?3.?Pain in right toe(s) - M79.674?4.?Pain in left toe(s) - M79.675?5.?Abscess of toe, right - L02.611 (Primary)? Plan: * Treatment: 2.?Atherosclerosis of [place] artery of both lower extremities, with unspecified presence of clinical manifestation?Procedure: 30807-SNPV SKIN LESIONS, 2 TO 4 3.?Tinea unguium?Procedure: 18059-FHJNQSK NAIL, 6 OR MORE * Procedures:?Debride Nail 6-10:?Nail debridement?Nail debridement performed extensively to reduce/remove overall nail length, girth, thickness, subungual debris, and necrotic tissue, by manual and electrical means through the use of a nail nipper and/or dremel, to more viable healthy nail plate or bed tissue 1-5. Silver nitrate used for any petechial bleeding as necessary. Patient chooses, no pharmaceutical tx (92238).?I&D nail abscess:?Type?Single, Abscess.?Anesthesia?3cc of 1 percent Lidocaine [...] dispensed. Recommended Tylenol or Motrin for pain/discomfort (94102) , CIRCULATION: Pt was advised as to the risk of delayed or nonhealing due to circulation. Pt is to call the office with any questions, concerns, or complications.?Keratoma Treatment:?Parring or Cutting of Benign Hyperkeratotic Lesion(s)?45469 (2-4 Lesions) - The Benign hyperkeratotic lesions, as described above were pared, and/or cut utilizing a sterile #15 blade, tissue nippers, and/or dremel, Q8.? * Procedure Codes:?93113 DRAIN AGE OF SKIN ABSCESS, Modifiers: XS , [id number] DEBRIDE NAIL, 6 OR MORE, Modifiers: XS 76536 TRIM SKIN LESIONS, 2 TO 4, Modifiers: XS , Q8 * Follow Up:?prn * Images: * Sign off status: Completed Addendum: * ? true * Provider:?Gume Salas DPM Date:?2023 Generated for Savannah thomas/Paige/Gricelda on:?07/14/2024 09:27 AM EST History and Physical [...]
== END 2024-07-14 09:38 | disposition home or self-care (01) ==
PROVIDERS: PCP Internal Medicine; Visit Provider Internal Medicine
DX: I10 Essential (primary) hypertension (principal)

== ENCOUNTER → 2024-07-14 09:12 | Outpatient (BNVA) | payer MEDICARE, SELFPAY | PROVIDERS: PCP Internal Medicine; Visit Provider Internal Medicine | DX: I10 Essential (primary) hypertension (principal) | CPT/HCPCS: 96127; 99212 ==

== ENCOUNTER 2024-10-10 08:00 | Outpatient (AMB) | payer MEDICARE, SELFPAY ==
--- NOTE | 2024-10-10 08:16 | A.OFFPC_ITS ---
Vital Signs 10/10/24 08:18 Height 6 ft 1 in Weight 199 lb 4 oz BMI 26.3 BP 120/78 Blood Pressure Location Lt brachial Position Sitting Pulse 80 Pulse Source Pulse Oximeter Temp 97.7 F Temp Source Temporal Artery Scan Pulse Oximetry (%) 97 Oxygen Delivery Method Room Air Intake Visit Reasons: 3 month f/u/ huma DR Mccann Intake Note: Patient is here today for HUMA from Dr Mccann and three months f/u for HTN, HLD. Consultant Intern Required: No Buyer: Not Required per policy Accompanied by: Self / Same As Patient Allergies No Known Allergies Allergy (Verified 10/10/24 08:43) Medication List - Last Reconciled 10/10/24 by MANOHAR Godoy amlodipine 5 mg PO DAILY aspirin (Adult Low Dose Aspirin) 81 mg PO DAILY atorvastatin 80 mg PO DAILY ezetimibe 10 mg PO DAILY finasteride 5 mg PO DAILY 90 days losartan-hydrochlorothiazide 100-25 mg 1 tab PO DAILY omeprazole 10 mg PO DAILY tamsulosin (Flomax) 0.4 mg PO BEDTIME 90 days timolol 0.5% 1 drp ophthalmic (eye) ONCE Tobacco use date assessed: 10/10/24 Fall risk assessment: No Falls in past year Last assessed Fall Risk: 10/10/24 Dental Screening Dental Screen Date: 07/14/24 HPI 3 month f/u/ huma DR Mccann HPI Details The patient 74 year old male with past medical history of HLD HTN, atherosclerotic cardiovascular disease, [place]'s esophagus, glaucoma Patient is presenting to transition care from Dr. Mccann retired Reports that his only concern today is his blood sugar Reports that this has been borderline and he would like to keep it there are below Patient reports that he could give up smoking and alcohol but has a hard time given up certain foods Reports that he loves his burgers and hot dogs Patient reports that he gets intermittent skin lesions that appears to be keratosis from sun exposure Reports that he was going to Dermatology intermittently to get them shaved or frozen off, and was told by the [employer] consultant that it is not necessary to do all the time, only if they get concerning The patient reports that he has [place]'s esophagus, last EGD was about 6 years ago Reports that he his due for colonoscopy, so most likely he will have both of them done at the same time [facility] and he will call and make an appointment Patient denies shortness of breath, chest pain, heart palpitation or dizziness He denies abdominal pain or change in bowel habits Reports that his urinary symptoms are under control at this time-he is on flomax [facility] Medical History Screening for diabetes mellitus Urinary hesitancy Urinary urgency Other and unspecified hyperlipidemia Atherosclerotic cardiovascular disease Hypertension Surgical History History of discectomy H/O endoscopy History of colonoscopy History of eye surgery History of colonoscopy History of lumbar surgery History of cholecystectomy Family History Father No problems noted. Mother No problems noted. Sister No problems noted. Social History Housing: House Alcohol intake: never Patient Tobacco Use Status: Former Tobacco user Tobacco use type: Cigarette e-Cigarette/Vaping Use: Never Used Second Hand Smoke Exposure: Yes service: No Current occupational status: retired Current occupational exposures/hazards: No Cognitive needs: No Hearing needs: No Vision needs: Yes (glasses) Questionnaire Thrive Questionnaire Date Thrive assessed: 07/14/24 WILDA-7 AMB Questionnaire WILDA-7 Date WILDA - 7 assessed: 07/14/24 Source: Developed by Drs. Rajesh Foster, Sabina Arora, Thiago Zavala and colleagues, with an educational lance from [employer]. Review of Systems Const Denies headache(s) Eyes Denies loss of vision ENT Denies vertigo, Denies dizziness, Denies headache(s) and Denies sore throat Card Denies chest pain, Denies leg edema and Denies lightheadedness Resp Denies cough, Denies hemoptysis and Denies wheezing GI Denies abdominal pain, Denies melena, Denies constipation, Denies diarrhea and Denies vomiting Denies dysuria, Denies urinary frequency and Denies urinary urgency Musc Denies arthralgias, Denies joint swelling, Denies numbness and Denies tingling Skin/Breast Reports other (intermittent keratosis) Neuro Denies Abnormal speech present, Denies behavioral changes, Denies vertigo, Denies dizziness, Denies headache(s), Denies loss of vision, Denies memory loss, Denies numbness and Denies tingling Psych Denies anxiety, Denies behavioral changes, Denies depression, Denies memory loss and Denies panic attacks Brian/Lymph Denies easy bleeding and Denies easy bruising Aller/Immun Denies wheezing Physical exam (Primary Care) Vital Signs: Last Vital Signs Temp 97.7 F 10/10/24 08:18 Pulse 80 10/10/24 08:18 BP 120/78 10/10/24 08:18 Pulse Ox 97 10/10/24 08:18 Oxygen Delivery Method Room Air 10/10/24 08:18 BMI result Body Mass Index 26.3 Tobacco/Smoking Status: Tobacco use Status Tobacco use date assessed 10/10/24 10/10/24 08:22 Patient Tobacco Use Status Former Tobacco user 10/10/24 08:22 Tobacco use type Cigarette 10/10/24 08:22 e-Cigarette/Vaping Use Never Used 10/10/24 08:22 Thrive Assessment: Date of Thrive Assessment Date Thrive assessed 07/14/24 10/10/24 08:22 Const General: healthy appearing, no acute distress, alert and awake Nutritional Appearance: well nourished Orientation/consciousness: oriented to person, oriented to place and oriented to time HENMT Ears: TM's normal bilaterally General nose exam: Normal nasal mucous membranes and turbinates present Eyes Conjunctivae: conjunctivae normal Sclerae: sclerae normal Pupils: Equal, round and reactive pupils present Neck Neck: Yes no lymphadenopathy and Yes no JVD Thyroid: Thyroid normal Carotids: no bruits Resp Effort & Inspection: normal respiratory effort and not tachypneic Auscultation: no crackles, no rales, no rhonchi and no wheezes Cardio Rate: regular rate Rhythm: regular rhythm Heart sounds: no murmurs and normal S1 and S2 GI Palpation (GI): Soft to palpation, nontender, no hepatomegaly and no splenomegaly Auscultation: normal bowel sounds Skin General skin exam: dry skin Lesions: lesion noted (keratosis-appearing lesion to left and right dorsal aspect) Neuro General: oriented to person, oriented to place and oriented to time Cranial nerves: Yes Equal, round and reactive pupils present Speech: No Abnormal speech present Gait exam (Neuro): Normal gait present Motor exam (neuro): no tremor noted Extrem Right upper extremity: full ROM Left upper extremity: full ROM Right lower extremity: full ROM; no edema Left lower extremity: full ROM; no edema Psych Mental Status: mental status grossly normal Speech and movement: Normal speech and movement present Affect: normal affect Attitude: cooperative Thought process: Normal thought process present Coding Level of Care Code Est Pt Level 4 (32596) Diagnoses Ascending aorta dilatation I77.810 Hyperlipidemia, unspecified hyperlipidemia type E78.5 Hyperlipidemia type: unspecified [place]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 He is being followed by cardiology with plans to repeat echo. (2) Hyperlipidemia: Code(s): E78.5 - Hyperlipidemia, unspecified Category: Medical Qualifiers: Hyperlipidemia type: unspecified Qualified Code(s): E78.5 - Hyperlipidemia, unspecified Plan: On his last labs: Triglycerides was 61, total cholesterol 132, LDL 74, HDL 46. We will order labs today to re-evaluate Reinforced low cholesterol diet and activity as tolerated Continue atorvastatin 80 mg and ezetimibe 10 mg daily (3) Barretts esophagus: Code(s): K22.70 - [place]'s esophagus without dysplasia Category: Medical Qualifiers: [place]'s esophagus type: with dysplasia of unspecified degree Qualified Code(s): K22.719 - [place]'s esophagus with dysplasia, unspecified Plan: History of [place]'s esophagus, last EGD about 6 years ago Patient we will call to make an appointment, as he is also due for colonoscopy and would try to get both tests done at the same time Reinforced dietary restrictions continue omeprazole 10 mg daily (4) Essential hypertension: Code(s): I10 - Essential (primary) hypertension Category: Medical Plan: Stable. On losartan/HCTZ and amlodipine. Reinforced low-sodium diet (5) Atherosclerotic cardiovascular disease: Code(s): I25.10 - Atherosclerotic heart disease of [place] coronary artery without angina pectoris Category: Medical Plan: Coronary CTA 2019- mild calcific plaque in the distal left main; [id number] calcific plaque throughout LAD; mild diffuse calcific plaque throughout the RCA and circumflex.? The patient has been stable. Continue aspirin 81 mg, atorvastatin 80 mg daily and ezetimibe 10 mg daily Follow up with Cardiology as scheduled Orders: Orders Comprehensive Logan. Panel Fast Today E78.5 - Hyperlipidemia, unspecified, H40.9 - Unspecified glaucoma, I10 - Essential (primary) hypertension, I25.10 - Atherosclerotic heart disease of [place] coronary artery without angina pectoris, I77.810 - Thoracic aortic ectasia, N32.0 - Bladder-neck obstruction, R39.11 - Hesitancy of micturition Glucose Fasting Today E78.5 - Hyperlipidemia, unspecified, H40.9 - Unspecified glaucoma, I10 - Essential (primary) hypertension, I25.10 - Atherosclerotic heart disease of [place] coronary artery without angina pectoris, I77.810 - Thoracic aortic ectasia, N32.0 - Bladder-neck obstruction, R39.11 - Hesitancy of micturition Hemoglobin A1c Today E78.5 - Hyperlipidemia, unspecified, H40.9 - Unspecified glaucoma, I10 - Essential (primary) hypertension, I25.10 - Atherosclerotic heart disease of [place] coronary artery without angina pectoris, I77.810 - Thoracic aortic ectasia, N32.0 - Bladder-neck obstruction, R39.11 - Hesitancy of micturition Complete Blood Count Auto Diff 3 Months E78.5 - Hyperlipidemia, unspecified, H40.9 - Unspecified glaucoma, I10 - Essential (primary) hypertension, I25.10 - Atherosclerotic heart disease of [place] coronary artery without angina pectoris, I77.810 - Thoracic aortic ectasia, K22.70 - [place]'s esophagus without dysplasia, N32.0 - Bladder-neck obstruction, Z00.00 - Encounter for general adult medical examination without abnormal findings TSH reflex Free T4 3 Months E78.5 - Hyperlipidemia, unspecified, H40.9 - Unspecified glaucoma, I10 - Essential (primary) hypertension, I25.10 - Atherosclerotic heart disease of [place] coronary artery without angina pectoris, I77.810 - Thoracic aortic ectasia, K22.70 - [place]'s esophagus without dysplasia, N32.0 - Bladder-neck obstruction, Z00.00 - Encounter for general adult medical examination without abnormal findings UA CC w/rflx Micro + Cult 3 Months E78.5 - Hyperlipidemia, unspecified, H40.9 - Unspecified glaucoma, I10 - Essential (primary) hypertension, I25.10 - Ather osclerotic heart disease of [place] coronary artery without angina pectoris, I77.810 - Thoracic aortic ectasia, K22.70 - [place]'s esophagus without dysplasia, N32.0 - Bladder-neck obstruction, Z00.00 - Encounter for general adult medical examination without abnormal findings Vitamin D 25-OH Total 3 Months E78.5 - Hyperlipidemia, unspecified, H40.9 - Unspecified glaucoma, I10 - Essential (primary) hypertension, I25.10 - Atherosclerotic heart disease of [place] coronary artery without angina pectoris, I77.810 - Thoracic aortic ectasia, K22.70 - [place]'s esophagus without dysplasia, N32.0 - Bladder-neck obstruction, Z00.00 - Encounter for general adult medical examination without abnormal findings Complete Blood Count Auto Diff Today E78.5 - Hyperlipidemia, unspecified, H40.9 - Unspecified glaucoma, I10 - Essential (primary) hypertension, I25.10 - Atherosclerotic heart disease of [place] coronary artery without angina pectoris, I77.810 - Thoracic aortic ectasia, N32.0 - Bladder-neck obstruction, R39.11 - Hesitancy of micturition Lipid Panel Today E78.5 - Hyperlipidemia, unspecified, H40.9 - Unspecified gla ucoma, I10 - Essential (primary) hypertension, I25.10 - Atherosclerotic heart disease of [place] coronary artery without angina pectoris, I77.810 - Thoracic aortic ectasia, N32.0 - Bladder-neck obstruction, R39.11 - Hesitancy of micturition Vitamin D 25-OH Total Today E78.5 - Hyperlipidemia, unspecified, H40.9 - Unspecified glaucoma, I10 - Essential (primary) hypertension, I25.10 - Atherosclerotic heart disease of [place] coronary artery without angina pectoris, I77.810 - Thoracic aortic ectasia, N32.0 - Bladder-neck obstruction, R39.11 - Hesitancy of micturition UA CC w/rflx Micro + Cult Today E78.5 - Hyperlipidemia, unspecified, H40.9 - Unspecified glaucoma, I10 - Essential (primary) hypertension, I25.10 - Atherosclerotic heart disease of [place] coronary artery without angina pectoris, I77.810 - Thoracic aortic ectasia, N32.0 - Bladder-neck obstruction, R39.11 - Hesitancy of micturition TSH reflex Free T4 Today E78.5 - Hyperlipidemia, unspecified, H40.9 - Unspecified glaucoma, I10 - Essential (primary) hypertension, I25.10 - Atherosclerotic heart disease of [place] coronary artery without angina pectoris, I77.810 - Thoracic aortic ectasia, N32.0 - Bladder-neck obstruction, R39.11 - Hesitancy of micturition Comprehensive [place]. Panel Fast 3 Months E78.5 - Hyperlipidemia, unspecified, H40.9 - Unspecified glaucoma, I10 - Essential (primary) hypertension, I25.10 - Atherosclerotic heart disease of [place] coronary artery without angina pectoris, I77.810 - Thoracic aortic ectasia, K22.70 - [place]'s esophagus without dysplasia, N32.0 - Bladder-neck obstruction, Z00.00 - Encounter for general adult medical examination without abnormal findings Lipid Panel 3 Months E78.5 - Hyperlipidemia, unspecified, H40.9 - Unspecified glaucoma, I10 - Essential (primary) hypertension, I25.10 - Atherosclerotic heart disease of [place] coronary artery without angina pectoris, I77.810 - Thoracic aortic ectasia, K22.70 - [place]'s esophagus without dysplasia, N32.0 - Bladder- neck obstruction, Z00.00 - Encounter for general adult medical examination without abnormal findings Glucose Fasting 3 Months E78.5 - Hyperlipidemia, unspecified, H40.9 - Unspecified glaucoma, I10 - Essential (primary) hypertension, I25.10 - Atherosclerotic heart disease of [place] coronary artery without angina pectoris, I77.810 - Thoracic aortic ectasia, K22.70 - [place]'s esophagus without dysplasia, N32.0 - Bladder-neck obstruction, Z00.00 - Encounter for general adult medical examination without abnormal findings Hemoglobin A1c 3 Months E78.5 - Hyperlipidemia, unspecified, H40.9 - Unspecified glaucoma, I10 - Essential (primary) hypertension, I25.10 - Atherosclerotic heart disease of [place] coronary artery without angina pectoris, I77.810 - Thoracic aortic ectasia, K22.70 - [place]'s esophagus without dysplasia, N32.0 - Bladder-neck obstruction, Z00.00 - Encounter for general adult medical examination without abnormal findings
[2024-10-10 08:18] VITALS: BP 120/78; PULSE 80; TEMP 36.5; O2SAT 97; BMI 26.3
== END 2024-10-10 09:03 | disposition home or self-care (01) ==
LOC: HO.HMCH 08:00
PROVIDERS: PCP Internal Medicine
DX: I77.810 Thoracic aortic ectasia (principal); E78.5 Hyperlipidemia, unspecified; K22.719 Barrett's esophagus with dysplasia, unspecified; I10 Essential (primary) hypertension; I25.10 Atherosclerotic heart disease of native coronary artery without angina pectoris

== ENCOUNTER → 2024-10-10 08:00 | Outpatient (BNVA) | payer MEDICARE, SELFPAY | PROVIDERS: PCP Internal Medicine | DX: E78.5 Hyperlipidemia, unspecified (principal); I10 Essential (primary) hypertension; I25.10 Atherosclerotic heart disease of native coronary artery without angina pectoris; I77.810 Thoracic aortic ectasia; K22.719 Barrett's esophagus with dysplasia, unspecified; H40.9 Unspecified glaucoma; N32.0 Bladder-neck obstruction; Z87.891 Personal history of nicotine dependence | CPT/HCPCS: 99212 ==

== ENCOUNTER 2024-11-07 08:36 | Outpatient (REF) | payer MEDICARE, SELFPAY ==
[2024-11-07 09:04] LABS: MANUAL DIFF FLAG NO
[2024-11-07 09:20] LABS: Basophils Percent Auto 0.9 % (0-2); Eosinophils Absolute Auto 0.4 X10*3/uL (0.0-0.4); Eosinophils Percent Auto 8.3 % (0-4); Hematocrit 39.2 % (42.0-52.0); Hemoglobin 13.6 g/dl (14.0-18.0); Imm Gran Abs Auto 0.01 X10*3/uL (0.00-0.03); Imm Gran Pct Auto 0.2 % (0.0-0.4); Lymphocytes Absolute Auto 0.9 X10*3/uL (1.2-4.9); Lymphocytes Percent Auto 20.5 % (20-40); Mean Corpuscular HGB Conc 34.7 g/dl (31.0-36.0); Mean Corpuscular Volume 89.3 fL (80.0-98.0); Mean Platelet Volume 9.1 fL (9.4-12.4); Monocytes Absolute Auto 0.5 X10*3/uL (0.1-1.2); Monocytes Percent Auto 10.5 % (2-11); Neutrophils Absolute Auto 2.7 x10*3/uL (2.0-8.3); Neutrophils Percent Auto 59.6 % (45-73); Platelet Count 220 X10*3/uL (160-400); Red Blood Count 4.39 X10*6/uL (4.60-5.80); Red Cell Distribution Width 13.7 % (11.0-16.0); White Blood Count 4.6 X10*3/uL (4.8-10.8)
[2024-11-07 09:29] LABS: Estimated Average Glucose 105 mg/dL; Hemoglobin A1C 122.3564 umol/L; Hemoglobin A1c % 5.3 % (<6.0); Total Hemoglobin (HGBA1C) 3521.9547 umol/L
[2024-11-07 09:37] LABS: Appearance Urine Clear; Color Urine Yellow; Glucose Urine UA Negative (Negative); Leukocyte Esterase Urine Negative (Negative); Nitrite Urine Negative (Negative); Urine Blood Negative (Negative); Urine Ketones Negative (Negative); Urine Protein Negative (Neg-Trace)
[2024-11-07 10:00] LABS: Alanine Aminotransferase 27 U/L (0-40); Albumin Level 3.9 g/dL (3.5-5.0); Alkaline Phosphatase 80 U/L (39-117); Anion Gap 11 (12-20); Aspartate Amino Transferase 23 U/L (5-37); Blood Urea Nitrogen 18 mg/dL (9-16); Calcium 9.2 mg/dL (8.4-10.2); Carbon Dioxide 29 mmol/L (22-29); Chloride 104 mmol/L (96-108); Cholesterol 133 mg/dL (<200); Estimated Glomerular Filt Rate > 60; Glucose Fasting 106 mg/dL (60-99); HDL Cholesterol 47 mg/dL (>40); LDL Cholesterol Calculated 74 mg/dL (<100); Potassium 3.6 mmol/L (3.3-5.1); Sodium 140 mmol/L (135-145); Total Protein 6.3 g/dL (6.5-8.0); Triglycerides 63 mg/dL (<150)
[2024-11-07 10:07] LABS: TSH reflex Free T4 1.17 uIU/mL (0.32-4.0)
== END 2024-11-07 08:37 | disposition home or self-care (01) ==
LOC: HO.LAB 08:36
DX: E78.5 Hyperlipidemia, unspecified (principal); I77.810 Thoracic aortic ectasia; N32.0 Bladder-neck obstruction; H40.9 Unspecified glaucoma; R39.11 Hesitancy of micturition; I10 Essential (primary) hypertension; I25.10 Atherosclerotic heart disease of native coronary artery without angina pectoris; Z13.1 Encounter for screening for diabetes mellitus
CPT/HCPCS: 36415; 80053; 80061; 81003; 82306; 83036; 84443; 85025

== ENCOUNTER → 2024-11-18 08:44 | Outpatient (REF) | payer MEDICARE, SELFPAY ==
--- NOTE | 2024-11-18 08:48 | CA_ITS ---
Transthoracic Echocardiogram Patient (Last, First, Middle): Telly Silverman, Gender: Male Date of : 1950 Age: 74 Procedure Date: 11/18/2024 Procedure Type: Transthoracic Echocardiogram Location: OP Height: 185. cm Weight: 92.53 kg BSA: 2.17 m2 Heart Rate: 85 bpm BP: 136 / 75 mmHg School Services Officer: SHIVA Swift MD: Julito Diaz MD Door Frame Builder: Keith Sharpe MD Symptoms: I77.810 - Thoracic aortic ectasia Study Quality: Adequate ECG Rhythm: Sinus Conclusions: - 1. Normal LV ejection fraction of 60 65% 2. Calcific aortic valve changes noted with normal cardiac valvular Dopplers 3. Mildly dilated ascending aorta at 4.1 cm 4. No gross pericardial effusion Findings Left Ventricle Normal left ventricular size, thickness, and systolic function. The visually estimated ejection fraction is between 60-65%. Spectral Doppler is indicative of an impaired relaxation filling pattern. E/E prime ratio is between 8 and 15 consistent with indeterminate filling pressures. Right Ventricle Normal right ventricular cavity size and systolic function. Atria The left atrium is likely dilated. There is no evidence of interatrial shunt. The right atrium is normal in size. Aortic Valve There is mild calcification of the aortic valve. There is no aortic valve stenosis. There is no aortic valve regurgitation. Mitral Valve Normal mitral valve structure and function. There is no mitral valve regurgitation. There is no mitral valve stenosis. Pulmonic Valve The pulmonic valve is likely normal. Tricuspid Valve Normal tricuspid valve structure. Tricuspid regurgitation envelope is inadequate for calculation of right ventricular systolic pressure. Normal right atrial pressure. Great Vessels The pulmonary artery was not well visualized. There is mild dilatation of the ascending aorta measuring 4.10 cm. Small plaque is seen in the sino tubular ridge. Venous The inferior vena cava is normal in size and collapses greater than 50% with inspiration. Pericardium/Pleural There is no evidence of pericardial effusion. Prior Study Comparison No significant change compared to prior study dated: 11/03/2022. Measurements 2D Linear Measurements IVSd: 0.85 0.6-0.9/0.6-1.0 cm LVIDd: 4.70 3.9-5.3/4.2-5.9 cm LVIDd Index: 2.17 2.4-3.2/2.2-3.1 cm/m2 LVIDs: 2.39 2.0-3.6 cm LVPWd: 0.92 0.7-1.1 cm LA Diam: 3.90 2.7-3.8/3.0-4.0 cm LAIDs Index: 1.80 1.5-2.3 cm/m2 LV Mass: 174.09 67-162/88-224 g LV Mass Index: 80.23 43-95/49-115 g/m2 LVOT Diam: 2.20 3.0+(-)1.3 cm 2D Systolic Function EF 4C: 60.40 >55% EF 2C: 58.80 >55% EF BiP: 60.80 >55% Mitral Valve MV Pk E: 0.75 MV PK A: 0.85 MV Decel Time: 207.00 E/A: 0.90 E'Lateral: 6.74 E'Medial: 6.31 E/E' Med: 11.90 E/E' Lat: 11.10 PHT: 61.00 MVA PHT: 3.61 Decel Stutsman: 3.62 Aortic Valve AoV Pk Steve: 1.26 AoV Mn Steve: 0.98 AoV VTI: 0.31 AoV Pk Grad: 6.00 Aov Mn Grad: 4.00 SONYA Cont.VTI: 2.61 LVOT LVOT Pk Steve: 0.96 LVOT Mn Steve: 0.68 LVOT VTI: 0.21 LVOT Pk Grad: 4.00 LVOT Mn Grad: 2.00 LVOT Diam: 2.20 LVOT Area: 3.80 Diastolic Function MV Pk E: 0.75 MV Pk A: 0.85 E/A: 0.90 E'Medial: 6.31 E/E' Med: 11.90 E' Laterial: 6.74 E/E' Lat: 11.10 Right Ventricle TAPSE (mm): 23.50 TVS' Steve: 12.00 Tricuspid Valve RA Press: 3.00 Great Vessels Aorta Sinus of Valsalva: 4.00 2.0-3.5 cm Ao Asc: 4.10 2.1-3.4 cm Ao Arch: 3.40 Pulmonary Valve PV Pk Steve: 0.77 Peak PV Grad: 2.00 Updated in Other Vendor System with Status of Final Keith Sharpe MD electronically signed on 11/19/2024 11:35:10 AM with status of Final
--- OUTSIDE RECORDS SUMMARY | 2024-11-18 08:59 | XMS_ITS ---
Author Organization [facility] Address [address] [place] [place] [address] Care Team Providers Care Master Fisher Name Role Phone Eusebio Farias Primary Care Provider Gume Rosario Unavailable [phone] Allergies Allergen (clinical drug ingredient) Drug/Non Drug Allergy documented on EMR Reaction Allergy Type Onset Date Status Seasonale Unknown Drug Allergy Active REASON FOR VISIT At Risk Footcare, Painful Nail(s) aggrevated by shoes and causing difficulty standing/walking., Ingrown Nail Medications Medication SIG (Take, Route, Frequency, Duration) Notes Start Date End Date Status Flonase Active Atorvastatin Calcium 40 MG TAKE 1 TABLET BY MOUTH EVERY DAY Oral for 90 Active amLODIPine Besylate Active Lisinopril-hydroCHLOROthi azide 20-12.5 MG TAKE 2 TABLETS ONCE A DAY Oral for 90 Not-Taking aspirin baby 11/10/2013 Active Valsartan-hydroCHLOROthia zide 80-12.5 MG Orally Active Timolol Maleate 0.5 % INSTILL 1 DROP IN EACH EYE TWICE A DAY Ophthalmic for 20 Active Lisinopril 40mg Not- Taking Simvastatin Not-Taki ng vitamin D 11/10/2013 Active Tamsulosin HCl 0.4 MG 1 capsule Orally O nce a day for 30 day(s) Active Omeprazole Active Social History Tobacco Use: Social History Observation Description Date Details (start date - stop date) Never Smoker NA - NA Tobacco use other than smoking: Question Answer Notes Are you an other tobacco user? No Tobacco Control (Standard) Question Answer Notes Tobacco use: Nonsmoker Additional Findings: Tobacco non-user Current no nsmoker AUDIT-C (Standard) Question Answer Notes Did you have a drink containing alcohol in the p ast year? No Points 0 Interpretation Negative Vital Signs Height 6ft 2in in 11/10/2024 Weight 204 lbs 11/10/2024 BMI 26.19 kg/m2 11/10/2024 Blood pressure systolic 133 mm Hg 11/11/19 25 Blood pressure diastolic 84 mm Hg 025 Heart Rate 74 /min 11/10/2024 Procedures Procedure Date Ordered Date Performed Result Body Sit e 89012-LZFZAEN NAIL, 6 OR MORE 11/10/2024 N/A 22848-YMAT SKIN LESIONS, 2 TO 4 11/10/2024 N/A Encounters Encounter Location Date Provider Diagnosis [facility] [place] [address] [place] [phone] 11/10/2024 Gume Salas Atherosclerosis of [place] artery of both lower extremities, with unspecified presence of clinical manifestation I70.203 ; Tinea unguium B35.1 ; Pain in right toe(s) M79.674 ; Pain in left toe(s) M79.675 and Ingrown nail L60.0 Assessments Encounter Date Diagnosis (ICD Code) Assessment Notes Treatment Notes Treatment Clinical Notes Section Notes 11/10/2024 Atherosclerosis of [place] artery of both lower extremities, with unspecified presence of clinical manifestation (ICD-10 - I70.203) 11/10/2024 Tinea unguium (ICD-10 - B35.1) 11/10/2024 Pain in right toe(s) (ICD-10 - M79.674) 11/10/2024 Pain in left toe(s) (ICD-10 - M79.675) 11/10/2024 Ingrown nail (ICD-10 - L60.0) 11/10/2024 Other Plan Of Treatment Pending Test Test Name Order Date 47752-WDNDPEY NAIL, 6 OR MORE 11/10/2024 98410-UTZP SKIN LESIONS, 2 TO 4 11/11/19 25 Next Appt Details Follow Up: prn, Reason: Provider Name:Gume Salas , 02/01/2025 09:30:00 AM, [address], [address], [place], [address], Provider Name:Gume Salas , 02/15/2025 08:30:00 AM, [address], [address], [place], [address], Procedure Notes * Category Sub-Category Detail Notes Debride Nail 6-10 Nail debridement Due to the cl inical pathology outlined in the exam findings, performance of this nail treatment is medically necessary as its management by an unskilled/untrained nonprofessional would put this patients foot and overall health at risk. Therefore, debridement to affected nail(s), as described in exam ( TA, T1, T2, T3, T4, T5, T6, T7, T8, T9 ), was performed exclusively by the physician of record to reduce/remove overall nail length, girth, thickness, subungual debris, and necrotic tissue, by manual and/or electrical means through the use of a nail nipper and/or dremel-type nut grinder, to a more viable healthy nail plate or bed tissue 6-10 nails in total. Silver nitrate was used for any petechial bleeding as necessary. Definitive antifungal treatment options, both pharmaceutical and surgical, have been reviewed and discussed with the patient. The patient solely prefers the use of intermittent/as needed professional debridement services for their nail condition and understands the need for additional periodic treatments to maintain effectiveness in symptomatic relief - 68096 Keratoma Treatment Parring or Cutting o f Benign Hyperkeratotic Lesion(s) (-56) 2-4 Lesions - Due to the at risk nature of the patients medical condition as documented in the exam findings, performance of this keratoderma treatment is medically necessary as its management by an unskilled/untrained nonprofessional would put this patients foot and overall health at risk. Therefore, the benign hyperkeratotic lesions, (2) in total, locations as stated and described in the exam ( Plantar, Heel(s), B/L ), were pared, and/or cut utilizing a sterile 15 blade, tissue nippers, and/or power dremel instrumentation by the physician of record - 04459, Q8 Progress Notes * Telly SILVERMAN WDOB: 0 (74 yo M)Acc No.[id number]:11/10/2024 Progress Note Patient:?Telly SILVERMAN W Provider:?Gume Salas DPM :1950???Age:74 Y???Sex:Male Danny e:11/10/2024 Address:[address] [place] [address] [place], [id number] Pcp:Eusebio Farias Subjective: * Chief Complaints: * ???At Risk FootcarePainful N ail(s) aggrevated by shoes and causing difficulty standing/walking.Ingrown Nail * HPI: ???At Risk footcare:?Pt States Last PCP Visit:?Date?10/10/2024 ???Ingrown toenail:?Location:?Great toe, Right foot.?Duration:?several years.?Course:?worse.?Treatments:?nail avulsions.? * ROS:?General/Constitutional:?Nausea?denies.?Vomiting?denies.?Hunger Thirst?denies.?Loss appetite?denies.?Chills?denies.?Fatigue?denies.?Fever?denies.?Night Sweats?denies.?Unexplained weight loss?denies.?Ophthalmologic:?Blurred [...] Hospitalization/Major Diagno stic Procedure:?endoscopy & colonoscopy 10/18Wing Roni, vein issue right ankle 12/31/19 * Family History:?Mother: dece ased, diagnosed with Unspecified heart disease.?Father: , diagnosed with Unspecified essential hypertension, Unspecified cerebral artery occlusion with cerebral infarction, Family history of arthritis, Diabetic - NIDDM.?Son(s): alive.?Spouse: alive.?Siblings: diagnosed with Other malignant neoplasm of unspecified site.?4 son(s) . .? * Social History:?Tobacco Use:?Tobacco use other than smoking?Are you an other tobacco user??No ?Tobacco Control (Standard)?Tobacco use:?Nonsmoker ?Additional Findings: Tobacco non-user?Current nonsmoker ???Drugs/Alcohol:?Drugs?Have you used drugs other than those for medical reasons in the past 12 months??No ???Drug/Alcohol:?AUDIT-C (Standard)?Did you have a drink containing alcohol in the past year??No ?Points?0 ?Interpretation?Negative * Medications:?Takingaspirin b pastor amLODIPine Besylate Atorvastatin Calcium 40 MG Tablet TAKE 1 TABLET BY MOUTH EVERY DAY Oral Flonase Omeprazole Tamsulosin HCl 0.4 MG Capsule 1 capsule Orally Once a day Timolol Maleate 0.5 % Solution INSTILL 1 DROP IN EACH EYE TWICE A DAY Ophthalmic Valsartan-hydroCHLOROthiazide 80-12.5 MG Tablet Orally vitamin D Taking aspirin baby Taking amLODIPine Besylate Taking Atorvastatin Calcium 40 MG Tablet TAKE 1 TABLET BY MOUTH EVERY DAY Oral Taking Flonase Taking Omeprazole Taking Tamsulosin HCl 0.4 MG [...] reviewed and reconciled with the patient * Allergies:?Seasonaleyes[Miguel Angel rgies Verified] Objective: * Vitals:?Ht:6ft 2in, Wt:204, BMI:26.19, Shoe size:10.5, BP:sittin/84mm Hg, HR:74/min, Ht-cm: 187.96 cm, Wt-k.53 kg. * Examination: ???Vascular: ?DP PULSES (B):? 0/4, B/L.?PT PULSES (B):? 0/4, B/L.?CAPILLARY FILL TIME:? delayed, all digits, B/L.?TROPHIC CONDITION-TEXTURE/ELASTICITY/TURGOR/HAIR GROWTH (B):? decreased,?with sparse to absent hair growth, B/L.?TEMPERTURE GRADIENT (C):? decreased, cool to cool, proximal to distal, B/L.?PIGMENTATION:? rubrous, B/L.?EDEMA (C):? 2/4, non-pitting, without aching pain, B/L, Leg(s), Ankle(s), Feet.?CLAUDICATION (C):?denies, B/L.?REST PAIN:?denies, B/L.?VARICOSITIES:?present, moderate, nonpainful, B/L.?Nails: ?NAILS are:? Elongated, overgrown, dystrophic, lytic, greater than 3mm thick, discolored and friable with crumbly malodorous subungual debris, with pain on palpation, TA, T1, T2, T3, T4, T5, T6, T7, T8, T9.?Dermatologic: ?SKIN FINDINGS:? Skin exam reveals Keratotic lesion(s) located at,?Plantar, Heel(s), B/L .?Ingrown Nail: ?INSPECTION:?Reveals nail incurvation, pain on palpation, groove hypertrophy, Lateral nail border, T5.? Assessment: * Assessment: 1.?Tinea unguium - B35.1???2 .?Atherosclerosis of [place] artery of both lower extremities, with unspecified presence of clinical manifestation - I70.203 (Primary)???Specify :Q8???3.?Pain in right toe(s) - M79.674???4.?Pain in left toe(s) - M79.675???5.?Ingrown nail - L60.0???Specify :Lateral nail border,?T5,Chronic problem, Worse (4), Decision for surgery (4)??? Plan: * Treatment: 2.?Tinea unguium?Procedure: 83997-GASYGEK NAIL, 6 OR MORE * Procedures:?Debride Nail 6-10:?Nail debridement?Due to the clinical pathology outlined in the exam findings, performance of this nail treatment is medically necessary as its management by an unskilled/untrained nonprofessional would put this patients foot and overall health at risk. Therefore, debridement to affected nail(s), as described in exam ( TA, T1, T2, T3, T4, T5, T6, T7, T8, T9 ), was performed exclusively by the physician of record to reduce/remove overall nail length, girth, thickness, subungual debris, and necrotic tissue, by manual and/or electrical means through the use of a nail nipper and/or dremel-type nut grinder, to a more viable healthy nail plate or bed tissue 6- 10 nails in total. Silver nitrate was used for any petechial bleeding as necessary. Definitive antifungal treatment options, both pharmaceutical and surgical, have been reviewed and discussed with the patient. The patient solely prefers the use of intermittent/as needed professional debridement services for their nail condition and understands the need for additional periodic treatments to maintain effectiveness in symptomatic relief - 11314.?Keratoma Treatment:?Parring or Cutting of Benign Hyperkeratotic Lesion(s)?(-56) 2-4 Lesions - Due to the at risk nature of the patients medical condition as documented in the exam findings, performance of this keratoderma treatment is medically necessary as its management by an unskilled/untrained nonprofessional would put this patients foot and overall health at risk. Therefore, the benign hyperkeratotic lesions, (2) in total, locations as stated and described in the exam (?Plantar,?Heel(s),?B/L?), were pared, and/or cut utilizing a sterile 15 blade, tissue nippers, and/or power dremel instrumentation by the physician of record - 98814, Q8.? * Procedure Codes:?33338 DEBRI DE NAIL, 6 OR MORE, Modifiers: XS 28778 TRIM SKIN LESIONS, 2 TO 4, Modifiers: XS , Q8 * Preventive Medicine:? ??Counseling:?Discussion:?-13: Office or other outpatient visit for the evaluation and management of an established patient, which required a medically appropriate history and/or examination and LOW level of DECISION MAKING for: 1 STABLE ACUTE UNCOMPLICATED PROBLEM, 2 OR MORE MINOR PROBLEMS, OR 1 STABLE CHRONIC PROBLEM, THAT POSE(S) A LOW RISK FOR MORBIDITY/MORTALITY. The visit on the day of the encounter encompassed interpreting the data and educating the patient as to the nature of their condition, treatment options available according to their individual PMH, meds, allergies, and overall health/living conditions, as well as any potential risks or complications that may occur from a failure to adhere to, and participate in, the recommended course of therapy. The discussion included a complete verbal, and/or written explanation of the examination results, any x-rays taken, the proposed diagnosis, and outline of the treatment plan. A schedule for future care needs was also explained. The patient verbalized an understanding of the instructions at this time and agreed to be an active participant in their treatment. If the patient should think of any questions or concerns after the visit, I have encouraged the patient to call the office.?Abscess/Paraonychia/Ingrown Nails:?We discussed the possible etiologies (genetic, improper nail care, shoe gear, nail trauma) which may lead to ingrown nails and/or paronychial infections. We discussed and reviewed palliative/nonsurgical/deferring definitive treatment (vs) undergoing the treatment procedures of nail avulsion(s) or PNA, which may prevent recurrence and give more lasting results. The possible risks/complications such as worsened condition/delayed healing/nonhealing/failure/recurrence/infection, the potential benefits/advantages of decreased pain/deformity, as well as alterative treatment options including applying nail softening agents/nail groove packing were discussed. No guarantees were given regarding any outcome for any procedure. The patient was educated in the length of time for the affected nail to regrow once completely healed from a nail avulsion procedure. Once the condition has completely healed, the patient was consulted on proper nail care. Patient questions such as details of each procedure, varying time to heal, activity post procedure, and shoe gear were discussed and the answers were verbally confirmed fully understood, The patient PREFERS PNA at this time. Such will be scheduled at their earliest convenience.? ??Screening/Special Tests:?Fall Risk?Screening:?No falls in the past year ?FALLS: Screening for Future Fall Risk?Have you had any falls with injury in the past year??No * Follow Up:?prn * Images: * Sign off status: Completed true * Provider:?Gume Salas DPM Date:?2024 Generated for Savannah thomas/Paige/Gricelda on:?11/18/2024 08:59 AM EDT History and Physical Notes * HPI (History of Present Illness) Category Sub-Category Detail Notes Category Not es Ingrown toenail Duration: several years Location: Great toe, Right azael t Treatments: nail avulsions Course: worse At Risk footcare Pt States Last PCP Visit: Date: 5 Examination Category Sub-Category Detail Notes Category Not es Ingrown Nail INSPECTION: Reveals nail inc urvation, pain on palpation, groove hypertrophy, Lateral nail border, T5 Dermatologic SKIN FINDINGS: Skin exam reveal s [...] malodorous subungual debris, with pain on palpation, TA, T1, T2, T3, T4, T5, T6, T7, T8, T9
--- OUTSIDE RECORDS SUMMARY | 2024-11-18 08:59 | XMS_ITS | Patient Health Record ---
Author Organization [facility] Address [address] [place] [address] Care Team Providers Care Diversity Intern Name Role Phone Donis Fariasurice Primary Care Provider Gume Rosario Unavailable [phone] Allergies Allergen (clinical drug ingredient) Drug/Non Drug Allergy documented on EMR Reaction Allergy Type Onset Date Status Seasonale Unknown Drug Allergy Active Reason For Referral No Information Medications Medication SIG (Take, Route, Frequency, Duration) Notes Start Date End Date Status Valsartan-hydroCHLOROthia zide 80-12.5 MG Orally Active Timolol Maleate 0.5 % INSTILL 1 DROP IN EACH EYE TWICE A DAY Ophthalmic for 20 Active Tamsulosin HCl 0.4 MG 1 capsule Orally O nce a day for 30 day(s) Active Omeprazole Active Flonase Active Atorvastatin Calcium 40 MG TAKE 1 TABLET BY MOUTH EVERY DAY Oral for 90 Active amLODIPine Besylate Active Lisinopril-hydroCHLOROthi azide 20-12.5 MG TAKE 2 TABLETS ONCE A DAY Oral for 90 Not-Taking aspirin baby 11/10/2013 Active Lisinopril 40mg Not- Taking Simvastatin Not-Taki ng vitamin D 11/10/2013 Active Immunizations Vaccine Route Administration Date Status [...] ast year? No Points 0 Interpretation Negative Problems Problem Type SNOMED Code ICD Code Onset Dates Problem Status W/U Status Risk Notes Problem Atherosclerosis of [place] arteries of the extremities ([id number]) Atherosclerosis of [place] artery of both lower extremities, with unspecified presence of clinical manifestation (I70.203) Active confirmed Vital Signs Heart Rate 74 /min 11/10/2024 Blood pressure diastolic 84 mm Hg 11/10/2024 Height 6ft 2in in 11/10/2024 Blood pressure systolic 133 mm Hg 11/10/2024 Weight 204 lbs 11/10/2024 BMI 26.19 kg/m2 11/10/2024 Procedures Procedure Date Ordered Date Performed Result Body Sit e 28599-IQVUTJW NAIL, 6 OR MORE 02/15/2024 N/A 91021-VMAN SKIN LESIONS, 2 TO 4 02/15/2024 N/A 10778-QHDAWYV NAIL, 6 OR MORE 05/19/2024 N/A 74739-AGQD SKIN LESIONS, 2 TO 4 05/19/2024 N/A 72798-SEIAPAY NAIL, 6 OR MORE 11/10/2024 N/A 69369-PBDO SKIN LESIONS, 2 TO 4 11/10/2024 N/A Encounters Encounter Location Date Provider Diagnosis [address] [address] 02/15/2024 Gume Salas Atherosclerosis of [place] artery of both lower extremities, with unspecified presence of clinical manifestation I70.203 ; Tinea unguium B35.1 ; Pain in right toe(s) M79.674 and Pain in left toe(s) M79.[address] [address] 05/19/2024 Gume Salas Atherosclerosis of [place] artery of both lower extremities, with unspecified presence of clinical manifestation I70.203 ; Tinea unguium B35.1 ; Pain in right toe(s) M79.674 and Pain in left toe(s) M79.[address] [address] 11/10/2024 Gume Salas Atherosclerosis of [place] artery of both lower extremities, with unspecified presence of clinical manifestation I70.203 ; Tinea unguium B35.1 ; Pain in right toe(s) M79.674 ; Pain in left toe(s) M79.675 and Ingrown nail L60.0 [facility] [place] [address] [address] 08/16/2024 Gume Salas Assessments Encounter Date Diagnosis (ICD Code) Assessment Notes Treatment Notes Treatment Clinical Notes Section Notes 02/15/2024 Tinea unguium (ICD-10 - B35.1) 02/15/2024 Atherosclerosis of [place] artery of both lower extremities, with unspecified presence of clinical manifestation (ICD-10 - I70.203) 05/19/2024 Tinea unguium (ICD-10 - B35.1) 05/19/2024 Atherosclerosis of [place] artery of both lower extremities, with unspecified presence of clinical manifestation (ICD-10 - I70.203) 11/10/2024 Tinea unguium (ICD-10 - B35.1) 11/10/2024 Atherosclerosis of [place] artery of both lower extremities, with unspecified presence of clinical manifestation (ICD-10 - I70.203) 05/19/2024 Pain in right toe(s) (ICD-10 - M79.674) 11/10/2024 Pain in right toe(s) (ICD-10 - M79.674) 02/15/2024 Pain in right toe(s) (ICD-10 - M79.674) 02/15/2024 Pain in left toe(s) (ICD-10 - M79.675) 11/10/2024 Pain in left toe(s) (ICD-10 - M79.675) 05/19/2024 Pain in left toe(s) (ICD-10 - M79.675) 11/10/2024 Ingrown nail (ICD-10 - L60.0) 02/15/2024 Other 05/19/2024 Other 11/10/2024 Other Plan Of Treatment Pending Test Test Name Order Date 06758-VANPWPT NAIL, 6 OR MORE 03/27/2011 96411-KKZGLMZ NAIL, 6 OR MORE 06/12/2011 95923-ZZNMBCO NAIL, 6 OR MORE 09/11/2011 22778-PLVRUJU NAIL, 6 OR MORE 12/18/2011 61943-UEBNCSR NAIL, 6 OR MORE 03/18/2012 13874-KBNMWFW NAIL, 6 OR MORE 06/17/2012 74972-XKMGRVR NAIL, 6 OR MORE 09/02/2012 59450-MGRKCUH NAIL, 6 OR MORE 11/11/2012 88364-NXZQBXF NAIL, 6 OR MORE 02/10/2013 65462-LLTBIIP NAIL, 6 OR MORE 05/19/2013 09391-OJRUYWZ NAIL, 6 OR MORE 08/18/2013 72678-JFTBVUH NAIL, 6 OR MORE 11/10/2013 07069-DMGYIBZ NAIL, 6 OR MORE 02/16/2014 05774-TOTQWLH NAIL, 6 OR MORE 05/18/2014 66230-USWOMEU NAIL, 6 OR MORE 08/17/2014 80106-SDOPORP NAIL, 6 OR MORE 11/16/2014 98757-PEDTFZC NAIL, 6 OR MORE 02/15/2015 44092-MRTWTAD NAIL, 6 OR MORE 05/10/2015 39407-UYWTAYZ NAIL, 6 OR MORE 08/09/2015 02530-VPRERNQ NAIL, 6 OR MORE 11/07/2015 29088-COPLEPE NAIL, 6 OR MORE 02/06/2016 67815-AAKDRTG NAIL, 6 OR MORE 05/07/2016 92523-UJTUVJX NAIL, 6 OR MORE 08/06/2016 87236-RTMGANK NAIL, 6 OR MORE 11/05/2016 10663-WQIFBJC NAIL, 6 OR MORE 02/04/2017 71450-WRRJDQR NAIL, 6 OR MORE 05/06/2017 13382-VQVQPIY NAIL, 6 OR MORE 08/06/2017 23719-IWJPXRI NAIL, 6 OR MORE 11/09/2017 96803-OXYEMTY NAIL, 6 OR MORE 02/08/2018 09373-TADHKAU NAIL, 6 OR MORE 05/10/2018 80005-FTSDPND NAIL, 6 OR MORE 08/11/2018 96725-PFGMETE NAIL, 6 OR MORE 11/11/2018 24756-COBQQUX NAIL, 6 OR MORE 02/10/2019 48770-DFFHAPV NAIL, 6 OR MORE 05/19/2019 65434-WBUSGHB NAIL, 6 OR MORE 10/03/2019 92516-VLQYJHB NAIL, 6 OR MORE 01/02/2020 50468-QSGRKCH NAIL, 6 OR MORE 03/29/2020 84306-GLBVDCV NAIL, 6 OR MORE 07/09/2020 89433-LNEDCJX NAIL, 6 OR MORE 10/08/2020 62898-VDILFZS NAIL, 6 OR MORE 01/10/2021 16976-WQTIEJV NAIL, 6 OR MORE 04/10/2021 80772-DLUATUZ NAIL, 6 OR MORE 07/11/2021 42970-NRRUKWO NAIL, 6 OR MORE 10/14/2021 09736-GZQOBQP NAIL, 6 OR MORE 01/15/2022 43063-JDXTZEE NAIL, 6 OR MORE 04/23/2022 64952-LUEZNKT NAIL, 6 OR MORE 09/03/2022 92417-FTFMKYX NAIL, 6 OR MORE 11/17/2022 38575-UHQHZSB NAIL, 6 OR MORE 02/16/2023 20400-RPNPRNR NAIL, 6 OR MORE 05/18/2023 08734-PXKGRRI NAIL, 6 OR MORE 08/17/2023 14811-ZCZBDIE NAIL, 6 OR MORE 11/16/2023 57739-NPAJSGO NAIL, 6 OR MORE 02/15/2024 41356-GTIXHJI NAIL, 6 OR MORE 05/19/2024 71363-BYKOTEJ NAIL, 6 OR MORE 11/10/2024 47190-Eivi Destruction, 07-1902/15/2015 41564-Kwrj Destruction, 07-1911/16/2014 76771-Nzcm Destruction, 07-1908/17/2014 94104-Upvo Destruction, 07-1906/12/2011 78866-Slvf Destruction, 07-1905/18/2014 61157-Bans Destruction, 07-1906/17/2012 13089-Ltdz Destruction, 07-1903/18/2012 38687-Joew Destruction, 07-1912/18/2011 21349-Xnai Destruction, 07-1909/11/2011 63808-Setd Destruction, 07-1903/27/2011 41240-Llzusyaw Plate 06/12/2011 73079-Jnvflekh Plate 09/11/2011 31569-Feuhckwh Plate 12/18/2011 81962-Jebmynpp Plate 03/18/2012 09903-Aymdbpgr Plate 06/17/2012 00149-Jumawncr Plate 05/18/2014 59170-Fglfflgw Plate 02/16/2014 63626-Xsfkjxwa Plate 11/10/2013 35548-Jazwixbb Plate 08/18/2013 08898-Qdohyesk Plate 05/19/2013 68143-Xvzcemkc Plate 02/10/2013 46337-Uxhpogvz Plate 11/11/2012 64840-Qyhzykgt Plate 08/17/2014 14319-Tbwpjdhs Plate 11/16/2014 51976-Aaruyjvv Plate 02/15/2015 88614-Omganswx Plate 08/09/2015 16220-Wsuwxkho Plate 05/10/2015 98914-Kffhcunc Plate 11/11/2018 16579-Uysbqels Plate 08/11/2018 79449-Zlwvrlmq Plate 05/10/2018 67358-Gxnithip Plate 08/06/2017 05256-Mwnantxe Plate 11/17/2022 60312-Mumdfphm Plate 09/03/2022 95882-Monemvuf Plate 04/23/2022 58453-Drqzltyz Plate 01/15/2022 15945-Erybvzuk Plate 10/14/2021 44303-Idhhhhwk Plate 07/11/2021 65225-Zznopfdq Plate 04/10/2021 05820-Krpzznhy Plate 01/10/2021 02782-Rpmdgexa Plate 10/08/2020 88942-Pumjjniv Plate 07/09/2020 35492-Ncjzwrwn Plate 03/29/2020 09571-Ovbhdlbe Plate 01/02/2020 49351-Yinnqcqz Plate 10/03/2019 69084-Hqtfutkm Plate 05/19/2019 72170-Macphzij Plate 02/10/2019 99320-Zzgnbnsa Plate Each Additional 30253-Dbwcimnz Plate Each Additional 10/2020 91521-Vkdkxmlw Plate Each Additional 11/2020 69322-Suoenpoj Plate Each Additional 02/2021 47674-Afszxhmo Plate Each Additional 11/2014 81268-Tkfamywk Plate Each Additional 10/2015 30440-Dkuxmdqj Plate Each Additional 65265-Winjlpkp Plate Each Additional 87799-Zgdmbtoy Plate Each Additional 06/2015 54273-Wjylmood Plate Each Additional 94015-Ejhyohvt Plate Each Additional 02/2014 57692-Pjhnkbhs Plate Each Additional 85356-Jsfhswdm Plate Each Additional 56514-Szyqvefj Plate Each Additional 38674-Idycyfiy Plate Each Additional 02/2012 60941-HQE 01/24/2021 56028- Debride <25 sq cm 10/08/2020 33649-BLIEVSF SKIN/TISSUE 02/07/2021 54205 I&D ABSCESS- SIMPLE,SINGLE 024 16487 I&D ABSCESS- SIMPLE,SINGLE 011 82943-ZCQL SKIN LESIONS, 2 TO 4 11/18/19 23 42996-WEYZ SKIN LESIONS, 2 TO 4 02/17/20 23 28680-MVTH SKIN LESIONS, 2 TO 4 08/17/19 24 96934-HVOC SKIN LESIONS, 2 TO 4 05/18/20 23 57814-HYGH SKIN LESIONS, 2 TO 4 11/11/19 25 48722-VIBF SKIN LESIONS, 2 TO 4 05/19/20 24 51532-KWJD SKIN LESIONS, 2 TO 4 02/15/20 24 16653-ZTHQ SKIN LESIONS, 2 TO 4 11/16/19 24 22853-VLPW SKIN LESIONS, 2 TO 4 09/04/19 23 27895-Msrb. Subungual Hematoma 3 Next Appt Details Provider Name:Gume Hussain Salas , 02/01/2025 09:30:00 AM, [address] [place] [address], [phone], Provider Name:Gume Hussain Salas , 02/15/2025 08:30:00 AM, [address] [place] [address], [phone], Insurance Providers Payer Name Payer Address Payer Phone Subscriber Number Group Number Insured Name Patient Relationship to Insured Coverage Start Date Coverage End Date Medicare National Govt [facility] [address] [place] [address] [id number] Telly Silverman Self - patient is the insured 6 [employer] [address] [place] [address] [phone] [id number] Telly Silverman Self - patient is the [...]
--- OUTSIDE RECORDS SUMMARY | 2024-11-18 08:59 | XMS_ITS ---
Author Organization [facility] Address [address] [place] [address] Care Team Providers Care Ordnance Officer Name Role Phone Jarrett Esuebio Primary Care Provider Gume Rosario [phone] REASON FOR VISIT RS 08/18/2024 Encounters Encounter Location Date [facility] [address] [address] 08/16/2024 Gume Salas Plan Of Treatment Next Appt Details Provider Name:Gume Salas , 02/01/2025 09:30:00 AM, [address] [place] [address], [phone], Provider Name:Gume Salas , 02/15/2025 08:30:00 AM, [address] [place] [address], [phone], Progress Notes * HERRERADarrylne WDOB: 0 (73 yo M)Acc No.[id number]:08/16/2024 Patient:?Telly SILVERMAN :1950???Age:73 Y???Sex:Male Address:[address] [place], [address] * true * Date:? Generated for Printi ng/Faxing/eTransmitting on:?11/18/2024 08:59 AM EDT
--- OUTSIDE RECORDS SUMMARY | 2024-11-18 09:00 | XMS_ITS ---
Author Organization [facility] Address [address] [place] [address] Care Team Providers Care Education And Development Manager Name Role Phone Eusebio Farias Primary Care Provider Gume Rosario Unavailable [phone] Encounters Encounter Location Date Provider Diagnosis [address] [address] 08/18/2024 Gume Salas Plan Of Treatment Next Appt Details Provider Name:Gume Salas , 02/01/2025 09:30:00 AM, [address] [place] [address], [phone], Provider Name:Gume Salas , 02/15/2025 08:30:00 AM, [address] [place] [address], [phone], Progress Notes * Telly SILVERMAN WDOB: 0 (74 yo M)Acc No.[id number]:08/18/2024 Progress Note Patient:?Telly SILVERMAN Provider:?Gume Salas DPM :1950???Age:73 Y???Sex:Male Danny e:08/18/2024 Address:[address] [place] [address] andrew [phone] Pcp:Eusebio Farias Subjective: * Chief Complaints: * ??? * Medical History:? Objective: * Vitals:? Assessment: Plan: * Treatment: * Images: * The named appointment provid er may or may not be the originator of this progress note, and it is not deemed complete until electronically signed by the appointment provider. Sign off status: Pending * Provider:Kirit Salas DPM Date:?2024 Generated for Savannah thomas/Paige/Gricelda on:?11/18/2024 08:59 AM EDT
== END ==
LOC: HO.CARD 08:44
PROVIDERS: Visit Provider Internal Medicine
DX: I77.810 Thoracic aortic ectasia (principal)
CPT/HCPCS: 93306

== ENCOUNTER → 2024-11-18 08:48 | Outpatient (BNV) | payer MEDICARE, SELFPAY | PROVIDERS: Visit Provider Internal Medicine Cardiovascular Disease | DX: I35.0 Nonrheumatic aortic (valve) stenosis (principal) | CPT/HCPCS: 93306 ==

== ENCOUNTER 2025-01-05 09:49 | Outpatient (AMB) | payer MEDICARE, SELFPAY ==
--- NOTE | 2025-01-05 10:04 | MHC.OFFVIS ---
Vital Signs 01/05/25 10:05 Height 6 ft 1 in Weight 200 lb 9.93 oz BMI 26.5 BP 122/70 Blood Pressure Location Lt brachial Position Sitting Pulse 68 Pulse Source Monitor Intake Visit Reasons: f/up-echo Allergies No Known Allergies Allergy (Verified 10/10/24 08:43) Medication List - Last Reconciled 01/05/25 by Julito Diaz MD amlodipine 5 mg PO DAILY aspirin (Adult Low Dose Aspirin) 81 mg PO DAILY atorvastatin 80 mg PO DAILY ezetimibe 10 mg PO DAILY finasteride 5 mg PO DAILY 90 days losartan-hydrochlorothiazide 100-25 mg 1 tab PO DAILY omeprazole 10 mg PO DAILY tamsulosin (Flomax) 0.4 mg PO BEDTIME 90 days timolol 0.5% 1 drp ophthalmic (eye) ONCE HPI Comments Details: Telly returns for follow-up regarding coronary disease. In the past, he underwent cardiac workup for shortness of breath and that revealed nonobstructive coronary artery disease. He has hypertension and hyperlipidemia on appropriate therapy. He also has a strong vascular history in his family. Over the last year, he has got no new complaints. No angina or shortness of breath or in fact any cardiac complaints whatsoever. He states he is getting along fine. No limitations otherwise. [facility] Medical History Screening for diabetes mellitus Urinary hesitancy Urinary urgency Other and unspecified hyperlipidemia Atherosclerotic cardiovascular disease Hypertension Surgical History History of discectomy H/O endoscopy History of colonoscopy History of eye surgery History of colonoscopy History of lumbar surgery History of cholecystectomy Family History Father No problems noted. Mother No problems noted. Sister No problems noted. Social History Housing: House Alcohol intake: never Patient Tobacco Use Status: Former Tobacco user Tobacco use type: Cigarette e-Cigarette/Vaping Use: Never Used Second Hand Smoke Exposure: Yes service: No Current occupational status: retired Current occupational exposures/hazards: No Cognitive needs: No Hearing needs: No Vision needs: Yes (glasses) Review of Systems Const Denies weakness ENT Denies dizziness Card Denies chest pain, Denies chest pain with activity, Denies syncope, Denies rapid heart rate, Denies pedal edema, Denies edema, Denies leg edema, Denies lightheadedness, Denies palpitations, Denies dyspnea, Denies dyspnea on exertion and Denies orthopnea Resp Denies cough, Denies dyspnea and Denies dyspnea on exertion GI Denies hematochezia and Denies change in stool character Musc Denies abnormal gait, Denies muscle cramps, Denies muscle weakness, Denies numbness, Denies radiating pain into limb and Denies tingling Neuro Denies abnormal gait, Denies dizziness, Denies syncope, Denies numbness, Denies tingling and Denies weakness Endo Denies palpitations Physical Exam Vital Signs: Last Vital Signs Pulse 68 01/05/25 10:05 BP 122/70 01/05/25 10:05 BMI result Body Mass Index 26.5 Const General: comfortable and no acute distress Orientation/consciousness: patient oriented x3 HEENT Other: Unremarkable Head: Yes normal to inspection Neck Neck: Yes normal visual inspection Chest Chest palpation & inspection: normal inspection of the chest Resp Auscultation: clear to auscultation bilaterally Cardio Palpation: normal PMI Heart sounds: S1 normal heart sound present, S2 normal heart sound present, no gallops, no murmurs and no rubs GI Palpation (GI): Soft to palpation Back/Spine/Pelvis Other: unremarkable Skin General skin exam: no rashes or lesions noted Neuro General: patient oriented x3 Extrem General: Yes normal to inspection Psych Mental Status: mental status grossly normal Office Procedures EKG Details: EKG with underlying sinus rhythm at 68/Min; no ischemic changes; [place]. [address]-Efhaswvfuanweoapj, Complete Assessment & Plan Assessment & Plan (1) Atherosclerotic cardiovascular disease: Code(s): I25.10 - Atherosclerotic heart disease of [place] coronary artery without angina pectoris Category: Medical Plan: Coronary CTA 2019- mild calcific plaque in the distal left main; inuu-zj-cqdxcxte calcific plaque throughout LAD; mild diffuse calcific plaque throughout the RCA and circumflex.? Nothing hemodynamically significant.? He remains angina free. Continue aspirin and statins. (2) Essential hypertension: Code(s): I10 - Essential (primary) hypertension Category: Medical Plan: Stable. On losartan/HCTZ and amlodipine. (3) Other and unspecified hyperlipidemia: Code(s): E78.5 - Hyperlipidemia, unspecified Category: Medical Plan: On high-dose statins and Zetia. Last LDL is 74 mg/dL. Triglycerides 63 mg/dL. (4) Ascending aorta dilatation: Code(s): I77.810 - Thoracic aortic ectasia Category: Medical Plan: In the recent echocardiogram, ascending aortic size 4.1 cm. Stable. Coding Level of Care Code Est Pt Level 4 (59013) Complex EM visit Add On G2211 Diagnoses Atherosclerotic cardiovascular disease I25.10 Essential hypertension I10 Other and unspecified hyperlipidemia E78.5 Ascending aorta dilatation I77.810 CPT Codes EKG - CPT: 80920-Fwojsajkvvicgskmc, Complete ([id number])
[2025-01-05 10:05] VITALS: BP 122/70; PULSE 68; BMI 26.5
--- OUTSIDE RECORDS SUMMARY | 2025-01-05 10:24 | XMS_ITS | Patient Health Record ---
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 Name Role Phone Donis Fariasurice Primary Care Provider Gume Rosario Unavailable [phone] Allergies Allergen (clinical drug ingredient) Drug/Non Drug Allergy documented on EMR Reaction Allergy Type Onset Date Status Seasonale Unknown Drug Allergy Active Reason For Referral No Information Medications Medication SIG (Take, Route, Frequency, Duration) Notes Start Date End Date Status Valsartan-hydroCHLOROthia zide 80-12.5 MG Orally Active Timolol Maleate 0.5 % INSTILL 1 DROP IN EACH EYE TWICE A DAY Ophthalmic; Duration: 20 Active Tamsulosin HCl 0.4 MG 1 capsule Orally O nce a day; Duration: 30 day(s) Active Omeprazole Active Flonase Active Atorvastatin Calcium 40 MG TAKE 1 TABLET BY MOUTH EVERY DAY Oral; Duration: 90 Active amLODIPine Besylate Active Lisinopril-hydroCHLOROthi azide 20-12.5 MG TAKE 2 TABLETS ONCE A DAY Oral; Duration: 90 Not-Takin g aspirin baby 11/10/2013 Active Lisinopril 40mg Not- [...] Problem Status W/U Status Risk Notes Problem Bilateral atherosclerosis of arteries of lower limbs (disorder) ([id number] ) Atherosclerosis of [place] artery of both lower extremities, with unspecified presence of clinical manifestation (I70.203) Active confirmed Vital Signs Heart Rate 74 /min 11/10/2024 Blood pressure diastolic 84 mm Hg 11/10/2024 Height 6ft 2in in 11/10/2024 Blood pressure systolic 133 mm Hg 11/10/2024 Weight 204 lbs 11/10/2024 BMI 26.19 kg/m2 11/10/2024 Procedures Procedure Date Ordered Date Performed Result Body Sit e 48935-EROFIYF NAIL, 6 OR MORE 02/15/2024 N/A 18648-DFQS SKIN LESIONS, 2 TO 4 02/15/2024 N/A 18890-LVZNCSI NAIL, 6 OR MORE 05/19/2024 N/A 50747-TMAD SKIN LESIONS, 2 TO 4 05/19/2024 N/A 94223-RVHQQAI NAIL, 6 OR MORE 11/10/2024 N/A 88043-GZCD SKIN LESIONS, 2 TO 4 11/10/2024 N/A Encounters Encounter Location Date Provider Diagnosis [address] [address] 02/15/2024 Gume Salas Atherosclerosis of [place] artery of both lower extremities, with unspecified presence of clinical manifestation I70.203 ; Tinea unguium B35.1 ; Pain in right toe(s) M79.674 and Pain in left toe(s) M79.[address] [address] 05/19/2024 Gume Josue Atherosclerosis of [place] artery of both lower extremities, with unspecified presence of clinical manifestation I70.203 ; Tinea unguium B35.1 ; Pain in right toe(s) M79.674 and Pain in left toe(s) M79.[address] [address] 11/10/2024 Gume Salas Atherosclerosis of [place] artery of both lower extremities, with unspecified presence of clinical manifestation I70.203 ; Tinea unguium B35.1 ; Pain in right toe(s) M79.674 ; Pain in left toe(s) M79.675 and Ingrown nail L60.0 [facility] [address] [facility] [address] [place] [address] 08/16/2024 Gume Salas Assessments Encounter Date Diagnosis (ICD Code) Assessment Notes Treatment Notes Treatment Clinical Notes Section Notes 02/15/2024 Tinea unguium (ICD-10 - B35.1) 02/15/2024 Atherosclerosis of [place] artery of both lower extremities, with unspecified presence of clinical manifestation (ICD-10 - I70.203) 05/19/2024 Tinea unguium (ICD-10 - B35.1) 05/19/2024 Atherosclerosis of [place] artery of both lower extremities, with unspecified presence of clinical manifestation (ICD-10 - I70.203) 11/10/2024 Tinea unguium (ICD-10 - B35.1) 11/10/2024 Atherosclerosis of [place] artery of both lower extremities, with [...] Treatment Pending Test Test Name Order Date 55898-BFWBWZP NAIL, 6 OR MORE 03/27/2011 50358-ORIVECX NAIL, 6 OR MORE 06/12/2011 66793-NWSGRAZ NAIL, 6 OR MORE 09/11/2011 22463-SDMEPNB NAIL, 6 OR MORE 12/18/2011 96743-RZBZZVY NAIL, 6 OR MORE 03/18/2012 81166-HSXDZLI NAIL, 6 OR MORE 06/17/2012 45739-RRHRNPM NAIL, 6 OR MORE 09/02/2012 02719-TDMRVTL NAIL, 6 OR MORE 11/11/2012 49562-QTLXKQA NAIL, 6 OR MORE 02/10/2013 54017-UJLWSFS NAIL, 6 OR MORE 05/19/2013 34628-QKENXHI NAIL, 6 OR MORE 08/18/2013 86777-JGCIKWD NAIL, 6 OR MORE 11/10/2013 62005-RMILSIR NAIL, 6 OR MORE 02/16/2014 71091-KYOCVTK NAIL, 6 OR MORE 05/18/2014 35257-TKNLQKR NAIL, 6 OR MORE 08/17/2014 44280-ULIYXWF NAIL, 6 OR MORE 11/16/2014 02967-FLWTIKN NAIL, 6 OR MORE 02/15/2015 28037-STJFOBX NAIL, 6 OR MORE 05/10/2015 98365-ALNHFMA NAIL, 6 OR MORE 08/09/2015 37696-IJCUIGL NAIL, 6 OR MORE 11/07/2015 24181-SXMCXXT NAIL, 6 OR MORE 02/06/2016 31775-OKEIGKP NAIL, 6 OR MORE 05/07/2016 95494-EYRDQAN NAIL, 6 OR MORE 08/06/2016 69132-UHSZXFG NAIL, 6 OR MORE 11/05/2016 88088-ZRCUHZM NAIL, 6 OR MORE 02/04/2017 99921-ZKRGKDG NAIL, 6 OR MORE 05/06/2017 82603-VOTVEIP NAIL, 6 OR MORE 08/06/2017 32459-MLDGKPN NAIL, 6 OR MORE 11/09/2017 58865-CYMYFVD NAIL, 6 OR MORE 02/08/2018 08285-NYTVZQM NAIL, 6 OR MORE 05/10/2018 41691-OGBUFKY NAIL, 6 OR MORE 08/11/2018 80783-KJFRQSN NAIL, 6 OR MORE 11/11/2018 97036-QXZYVMI NAIL, 6 OR MORE 02/10/2019 73879-AENTYYG NAIL, 6 OR MORE 05/19/2019 41563-YBAFUIT NAIL, 6 OR MORE 10/03/2019 48267-UVXUZIO NAIL, 6 OR MORE 01/02/2020 22378-WESZVQT NAIL, 6 OR MORE 03/29/2020 52001-PTBPUWO NAIL, 6 OR MORE 07/09/2020 54923-XZXSAJY NAIL, 6 OR MORE 10/08/2020 71113-VXJTUOM NAIL, 6 OR MORE 01/10/2021 88558-BNVPYEY NAIL, 6 OR MORE 04/10/2021 18129-LPVWZTQ NAIL, 6 OR MORE 07/11/2021 04289-QEBASOY NAIL, 6 OR MORE 10/14/2021 89126-MJBBWSA NAIL, 6 OR MORE 01/15/2022 30861-ZZVNMNH NAIL, 6 OR MORE 04/23/2022 83643-MBJHOWK NAIL, 6 OR MORE 09/03/2022 48348-RMGAVVT NAIL, 6 OR MORE 11/17/2022 41516-RTQUGZS NAIL, 6 OR MORE 02/16/2023 45031-RENGEDU NAIL, 6 OR MORE 05/18/2023 56634-ZGLJCLY NAIL, 6 OR MORE 08/17/2023 04462-WLBELUL NAIL, 6 OR MORE 11/16/2023 37632-ZRZSFKQ NAIL, 6 OR MORE 02/15/2024 37116-ZMSNZAN NAIL, 6 OR MORE 05/19/2024 43979-NHFGDKZ NAIL, 6 OR MORE 11/10/2024 28609-Qxfd Destruction, -02/15/2015 78912-Ijma Destruction, 07-1911/16/2014 61571-Oluj Destruction, 07-1908/17/2014 68438-Gthd Destruction, 07-1906/12/2011 07208-Vtnc Destruction, 07-1905/18/2014 38203-Irig Destruction, 07-1906/17/2012 43517-Erai Destruction, 07-1903/18/2012 32794-Sxyy Destruction, 07-1912/18/2011 23871-Kqfp Destruction, 07-1909/11/2011 41594-Ypky Destruction, 07-1903/27/2011 11604-Vsaytuld Plate 06/12/2011 05229-Ujmkfwsu Plate 09/11/2011 83692-Udhzrcsb Plate 12/18/2011 88778-Mdzghkbu Plate 03/18/2012 78192-Xhnwnlxg Plate 06/17/2012 76851-Eykvwsvn Plate 05/18/2014 96614-Leefcxaq Plate 02/16/2014 54094-Axbbhnhq Plate 11/10/2013 81774-Akletfdw Plate 08/18/2013 24990-Gwxmgkpo Plate 05/19/2013 47388-Giekkjxi Plate 02/10/2013 71032-Xqmdrxty Plate 11/11/2012 06746-Pqlhpxgq Plate 08/17/2014 43548-Dwfehbko Plate 11/16/2014 65448-Fsrobjsm Plate 02/15/2015 14386-Vmtvqazw Plate 08/09/2015 28427-Dchngtxv Plate 05/10/2015 65634-Vvcoatbd Plate 11/11/2018 68558-Xfbczsoz Plate 08/11/2018 87057-Wkvdozuv Plate 05/10/2018 77221-Yalzpljy Plate 08/06/2017 96785-Yqelubbn Plate 11/17/2022 29845-Obeuawnb Plate 09/03/2022 54816-Epyougja Plate 04/23/2022 19411-Etkocxng Plate 01/15/2022 02600-Cxrkwqri Plate 10/14/2021 85393-Nddjpbjq Plate 07/11/2021 84323-Nvethpyx Plate 04/10/2021 92464-Mxsxmndo Plate 01/10/2021 61823-Rdsbnkzr Plate 10/08/2020 23237-Rvhntsor Plate 07/09/2020 11522-Bupwepzu Plate 03/29/2020 54430-Ewdossys Plate 01/02/2020 69792-Haxockbh Plate 10/03/2019 15768-Evmwvchb Plate 05/19/2019 40726-Xbfiyyvr Plate 02/10/2019 53264-Lsyqbuzd Plate Each Additional 17326-Dxdgigui Plate Each Additional 10/2020 35617-Wqqntxuq Plate Each Additional 11/2020 91767-Xehlpggb Plate Each Additional 02/2021 54141-Whehybje Plate Each Additional 11/2014 56205-Mebsxajp Plate Each Additional 10/2015 61473-Xzvxsuob Plate Each Additional 25890-Moanpcno Plate Each Additional 14556-Kbgevihx Plate Each Additional 06/2015 73846-Cwgzpgws Plate Each Additional 74263-Zdfbtddx Plate Each Additional 02/2014 76747-Jbgmckga Plate Each Additional 51775-Yvqzawht Plate Each Additional 17562-Xbuxnmvk Plate Each Additional 27374-Uoialexc Plate Each Additional 02/2012 48132-RSZ 01/24/2021 90086- Debride <25 sq cm 10/08/2020 50758-CNEINKI SKIN/TISSUE 02/07/2021 18778 I&D ABSCESS- SIMPLE,SINGLE 024 23236 I&D ABSCESS- SIMPLE,SINGLE 011 82450-BFTC SKIN LESIONS, 2 TO 4 11/18/19 23 15950-HLBS SKIN LESIONS, 2 TO 4 02/17/20 23 78558-WBNI SKIN LESIONS, 2 TO 4 08/17/19 24 40098-QNXX SKIN LESIONS, 2 TO 4 05/18/20 23 71426-IVMW SKIN LESIONS, 2 TO 4 11/11/19 25 50871-GJAU SKIN LESIONS, 2 TO 4 05/19/20 24 49900-GZDQ SKIN LESIONS, 2 TO 4 02/15/20 24 04047-NOXK SKIN LESIONS, 2 TO 4 11/16/19 24 34682-QOPS SKIN LESIONS, 2 TO 4 09/04/19 23 05597-Zdxl. Subungual Hematoma 3 Next Appt Details Provider Name:Gume Salas , 02/01/2025 09:30:00 AM, [facility] [address], [address], Provider Name:Gume Salas , 02/15/2025 08:30:00 AM, [address] [address], [place], [address], Insurance Providers Payer Name Payer Address Payer Phone Subscriber Number Group Number Insured Name Patient Relationship to Insured Coverage Start Date Coverage End Date Medicare National Govt [facility] [address] [facility] [place] [address] [id number] Telly Silverman Self - patient is the insured 6 [employer] Blue [employer] [address] [place] [address] [id number] Telly Silverman Self - patient is the [...]
== END 2025-01-05 10:20 | disposition home or self-care (01) ==
LOC: HO.HCS 09:50
PROVIDERS: Visit Provider Internal Medicine
DX: I25.10 Atherosclerotic heart disease of native coronary artery without angina pectoris (principal); I10 Essential (primary) hypertension; E78.5 Hyperlipidemia, unspecified; I77.810 Thoracic aortic ectasia
CPT/HCPCS: 93010; 99214; G2211

== ENCOUNTER → 2025-01-05 09:49 | Outpatient (BNVA) | payer MEDICARE, SELFPAY | PROVIDERS: Visit Provider Internal Medicine | DX: I25.10 Atherosclerotic heart disease of native coronary artery without angina pectoris (principal); I10 Essential (primary) hypertension; I77.810 Thoracic aortic ectasia; E78.5 Hyperlipidemia, unspecified | CPT/HCPCS: 93005; 99212 ==

== ENCOUNTER 2025-01-30 09:59 | Outpatient (AMB) | payer MEDICARE, SELFPAY ==
--- NOTE | 2025-01-30 10:13 | A.OFFPC_ITS ---
Vital Signs 01/30/25 10:14 Height 6 ft 1 in Weight 203 lb 2 oz BMI 26.8 BP 122/64 Blood Pressure Location Lt brachial Position Sitting Pulse 80 Pulse Source Pulse Oximeter Temp 97.3 F Temp Source Temporal Artery Scan Pulse Oximetry (%) 97 Oxygen Delivery Method Room Air Intake Visit Reasons: htn/hld/atherosclerotic cardio Intake Note: Patient is here to follow up on HTN, HLD, Atherosclerotic cardio. 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: Not Required per policy Accompanied by: Self / Same As Patient Allergies No Known Allergies Allergy (Verified 01/30/25 10:42) Medication List - Last Reconciled 01/30/25 by MANOHAR Godoy amlodipine 5 mg PO DAILY aspirin (Adult Low Dose Aspirin) 81 mg PO DAILY atorvastatin 80 mg PO DAILY ezetimibe 10 mg PO DAILY finasteride 5 mg PO DAILY 90 days losartan-hydrochlorothiazide 100-25 mg 1 tab PO DAILY omeprazole 10 mg PO DAILY tamsulosin (Flomax) 0.4 mg PO BEDTIME 90 days timolol 0.5% 1 drp ophthalmic (eye) ONCE Tobacco use date assessed: 01/30/25 Fall risk assessment: No Falls in past year Last assessed Fall Risk: 01/30/25 Dental Screening Dental Screen Date: 07/14/24 HPI htn/hld/atherosclerotic cardio HPI Details Patient is a 74-year-old male presenting for follow up appointment for chronic conditions He is requesting referral the [facility] associates for his follow up EGD and he is also due for colonoscopy Patient reports that 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 Reports that he is doing well his symptoms has decreased significantly. States that depending on how much he drinks and how close to bedtime he might gets up 2 times a night. Patient continues to be slightly anemic but has been stable. We will add a B12 and folate to his follow up labs due to his history of alcohol use even though he stopped drinking years ago Send denies chest pain, SOB, heart palpitation or dizziness Denies abdominal pain or change in bowel habits Denies any increasing urinary symptoms [facility] Medical History (Updated 01/30/25 @ 12:39 by Eusebio Farias, MATH AND SCIENCE INSTRUCTOR-C) GERD (gastroesophageal reflux disease) Screening for diabetes mellitus Urinary hesitancy Urinary urgency Other and unspecified hyperlipidemia Atherosclerotic cardiovascular disease Hypertension Surgical History History of discectomy H/O endoscopy History of colonoscopy History of eye surgery History of colonoscopy History of lumbar surgery History of cholecystectomy Family History Father No problems noted. Mother No problems noted. Sister No problems noted. Social History Housing: House Alcohol intake: never Patient Tobacco Use Status: Former Tobacco user Tobacco use type: Cigarette e-Cigarette/Vaping Use: Never Used Second Hand Smoke Exposure: Yes service: No Current occupational status: retired Current occupational exposures/hazards: No Cognitive needs: No Hearing needs: No Vision needs: Yes (glasses) Questionnaire PHQ-9 Over the last 2 weeks, how often have you been bothered by any of the following problems? 1. Little interest or pleasure in doing things: not at all 2. Feeling down, depressed, or hopeless: not at all 3. Trouble falling or staying asleep, or sleeping too much: not at all 4. Feeling tired or having little energy: not at all 5. Poor appetite or overeating: not at all 6. Feeling bad about yourself - or that you are a failure or have let yourself or your family down: not at all 7. Trouble concentrating on things, such as reading the newspaper or watching television: not at all 8. Moving or speaking so slowly that other people could have noticed. Or the opposite - being so fidgety or restless that you have been moving around a lot more than usual: not at all 9. Thoughts that you would be better off or of hurting yourself in some way: not at all Total score: 0 Depression Screening Interpretation: Negative Depression Screening Done: Yes Source: Developed by Drs. Rajesh Foster, Sabina Arora, Thiago Zavala and colleagues, with an educational lance from [employer]. Thrive Questionnaire Date Thrive assessed: 01/09/25 I am a: Patient What is your living situation today?: I have a steady place to live Within the past 12 months, did the food you bought not last and you didn't have the money to get more?: Never true Within the past 12 months, did you worry whether your food would run out before you got money to buy more?: Never true Do you have trouble paying for medicines?: No Do you have trouble getting transportation to medical appointments?: No Do you have trouble paying your heating and electricity bill?: No Do you have trouble taking care of your child, family member or friend?: No Do you have trouble with day-to-day activities such as bathing, preparing meals, shopping, managing finances, etc.?: No Are you currently unemployed and looking for a job?: I choose not to answer this question Are you interested in more education?: No Please select the resources that you would like help with: None Currently or been in a relationship where the following occur: No concerns reported THRIVE Score: 0 AUDIT C Alcohol Use Questionnaire (AUDIT-C) 1. How often do you have a drink containing alcohol?: Never 3. How often do you have six or more drinks on one occasion?: Never Total Score: 0 WILDA-7 AMB Questionnaire WILDA-7 Date WILDA - 7 assessed: 01/30/25 Feeling nervous, anxious, or on edge: 0 = Not at all Not being able to stop or control worryin = Not at all Worrying too much about different things: 0 = Not at all Trouble relaxin = Not at all Being so restless that it is hard to sit still: 0 = Not at all Becoming easily annoyed or irritable: 0 = Not at all Feeling afraid as if something awful might happen: 0 = Not at all Total WILDA-7 score (0-4 normal; 5-9 mild; 10-14 moderate; 15-21 severe): 0 Source: Developed by Drs. Rajesh Foster, Sabina Arora, Thiago Zavala and colleagues, with an educational lance from [employer]. Review of Systems Const Denies headache(s) Eyes Denies loss of vision ENT Denies vertigo, Denies dizziness, Denies headache(s) and Denies sore throat Card Denies chest pain, Denies leg edema and Denies lightheadedness Resp Denies cough, Denies hemoptysis and Denies wheezing GI Denies abdominal pain, Denies melena, Denies constipation, Denies diarrhea and Denies vomiting Denies dysuria, Denies urinary frequency and Denies urinary urgency Musc Denies arthralgias, Denies joint swelling, Denies numbness and Denies tingling Neuro Denies Abnormal speech present, Denies behavioral changes, Denies vertigo, Denies dizziness, Denies headache(s), Denies loss of vision, Denies memory loss, Denies numbness and Denies tingling Psych Denies anxiety, Denies behavioral changes, Denies depression, Denies memory loss and Denies panic attacks Brian/Lymph Denies easy bleeding and Denies easy bruising Aller/Immun Denies wheezing Physical exam (Primary Care) Vital Signs: Last Vital Signs Temp 97.3 F 01/30/25 10:14 Pulse 80 01/30/25 10:14 BP 122/64 01/30/25 10:14 Pulse Ox 97 01/30/25 10:14 Oxygen Delivery Method Room Air 01/30/25 10:14 BMI result Body Mass Index 26.8 Tobacco/Smoking Status: Tobacco use Status Tobacco use date assessed 01/30/25 01/30/25 10:19 Patient Tobacco Use Status Former Tobacco user 01/30/25 10:19 Tobacco use type Cigarette 01/30/25 10:19 e-Cigarette/Vaping Use Never Used 01/30/25 10:19 PHQ-9: PHQ-9 Score PHQ-9: Total score 0 01/30/25 10:19 Depression Screening Interpretation: Negative Thrive Assessment: Date of Thrive Assessment Date Thrive assessed 01/09/25 01/30/25 10:19 Currently or been in a relationship where the following occur: No concerns reported Const General: healthy appearing, no acute distress, alert and awake Nutritional Appearance: well nourished Orientation/consciousness: oriented to person, oriented to place and oriented to time HENMT Ears: TM's normal bilaterally General nose exam: Normal nasal mucous membranes and turbinates present Eyes Conjunctivae: conjunctivae normal Sclerae: sclerae normal Pupils: Equal, round and reactive pupils present Neck Neck: Yes no lymphadenopathy and Yes no JVD Thyroid: Thyroid normal Carotids: no bruits Resp Effort & Inspection: normal respiratory effort and not tachypneic Auscultation: no crackles, no rales, no rhonchi and no wheezes Cardio Rate: regular rate Rhythm: regular rhythm Heart sounds: no murmurs and normal S1 and S2 GI Palpation (GI): Soft to palpation, nontender, no hepatomegaly and no splenomegaly Auscultation: normal bowel sounds Skin General skin exam: no rashes or lesions noted and dry skin Neuro General: oriented to person, oriented to place and oriented to time Cranial nerves: Yes Equal, round and reactive pupils present Speech: No Abnormal speech present Gait exam (Neuro): Normal gait present Motor exam (neuro): no tremor noted Extrem Right upper extremity: full ROM Left upper extremity: full ROM Right lower extremity: full ROM; no edema Left lower extremity: full ROM; no edema Psych Mental Status: mental status grossly normal Speech and movement: Normal speech and movement present Affect: normal affect Attitude: cooperative Thought process: Normal thought process present Results Reviewed Results Reviewed: Laboratory Tests 11/07/24 08:57 WBC 4.6 L RBC 4.39 L Hgb 13.6 L Hct 39.2 L MCV 89.3 MCH 31.0 MCHC 34.7 RDW 13.7 Plt Count 220 Sodium 140 Potassium 3.6 Chloride 104 Carbon Dioxide 29 Anion Gap 11 L BUN 18 H Estimated GFR > 60 Fasting Glucose 106 H Estimat Average Glucose 105 Hemoglobin A1c % 5.3 Calcium 9.2 Total Bilirubin 1.0 AST 23 ALT 27 Alkaline Phosphatase 80 Total Protein 6.3 L Albumin 3.9 Triglycerides 63 Cholesterol 133 LDL Cholesterol, Calc 74 HDL Cholesterol 47 25-OH Vitamin D Total 42.0 TSH 1.17 Coding Level of Care Code Tele Est Pt Level 4 (01885) Diagnoses Essential hypertension I10 Atherosclerotic cardiovascular disease I25.10 Ascending aorta dilatation I77.810 Hyperlipidemia, unspecified hyperlipidemia type E78.5 Hyperlipidemia type: unspecified 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 Koroma's esophagus type: with dysplasia of unspecified degree Nocturia more than twice per night R35.1 Gastroesophageal reflux disease, unspecified whether esophagitis present K21.9 Esophagitis presence: esophagitis presence not specified Time Spent (min) 39 Assessment & Plan Assessment & Plan (1) Essential hypertension: Code(s): I10 - Essential (primary) hypertension Category: Medical Plan: Blood pressure 122 122/64 in office today Reinforced low-salt diet Continue amlodipine 5 mg daily, losartan-hydrochlorothiazide 100-25 mg daily, (2) Atherosclerotic cardiovascular disease: Code(s): I25.10 - Atherosclerotic heart disease of [place] coronary artery without angina pectoris Category: Medical Plan: Patient had mild calcific plaque in the left distal main and mild to moderate calcific plaque throughout LAD. Mild diffuse calcific plaque throughout the RCA and circumflex on coronary CTA in 2019. Patient has been stable without anginal symptoms. Continue aspirin 81 mg, and atorvastatin 80 mg daily (3) Ascending aorta dilatation: Code(s): I77.810 - Thoracic aortic ectasia Category: Medical Plan: Ascending aorta is stable at 4.1 cm on recent echocardiogram. We will continue strict blood pressure control (4) Hyperlipidemia: Code(s): E78.5 - Hyperlipidemia, unspecified Category: Medical Qualifiers: Hyperlipidemia type: unspecified Qualified Code(s): E78.5 - Hy perlipidemia, unspecified Plan: Triglycerides symptoms 63 and LDL 74 Reinforced low-cholesterol diet and activity as tolerated Continue atorvastatin 80 mg daily, ezetimibe 10 mg daily We will repeat lipid panel in 3 months (5) Barretts esophagus: Code(s): K22.70 - Koroma's esophagus without dysplasia Category: Medical Qualifiers: Koroma's esophagus type: with dysplasia of unspecified degree Qualified Code(s): K22.719 - Koroma's esophagus with dysplasia, unspecified Plan: Patient has a history of Koroma's esophagus in his due for follow up EGD. Requesting a referral to [facility] associates (6) Nocturia more than twice per night: Code(s): R35.1 - Nocturia Category: Medical Plan: Reports that the symptoms that decreased significantly is all dependent on how much he drinks prior to going to bed. Continue finasteride 5 mg, Flomax 0.4 mg at bedtime Follow up with Urology as scheduled (7) GERD (gastroesophageal reflux disease): Code(s): K21.9 - Gastro-esophageal reflux disease without esophagitis Category: Medical Qualifiers: Esophagitis presence: esophagitis presence not specified Qualified Code(s): K21.9 - Gastro-esophageal reflux disease without esophagitis Plan: Do not eat meals or drink carbonated beverages within 3 hr of bedtime Decrease the amount of fried, fatty, and spicy foods to decrease gastric acid production Raise the head of the bed using 4 to 6-inch blocks, especially if nocturnal symptoms are present Lose weight if indicated; avoid tight-fitting clothing, especially around the waist Avoid foods that relax the Lower esophageal sphincter (chocolate, peppermint, high-fat foods etc.,) Continue omeprazole 10 mg daily Plan Return in 3 months Orders: Orders Vitamin B12 and Folate Today D64.9 - Anemia, unspecified, E78.5 - Hyperlipidemia, unspecified, I10 - Essential (primary) hypertension, I77.810 - Thoracic aortic ectasia Referrals Gastroenterology Referral K22.719 - Koroma's esophagus with dysplasia, unspecified, Z12.11 - Encounter for screening for malignant neoplasm of colon, Z12.12 - Encounter for screening for malignant neoplasm of rectum
[2025-01-30 10:14] VITALS: BP 122/64; PULSE 80; TEMP 36.3; O2SAT 97; BMI 26.8
--- OUTSIDE RECORDS SUMMARY | 2025-01-30 11:01 | XMS_ITS | Patient Health Record ---
Author Organization [facility] Address [address] [place] [address] Care Team Providers Care Local Government Legislator Name Role Phone Donis Fariasurice Primary Care Provider Gume Rosario Unavailable [phone] Allergies Allergen (clinical drug ingredient) Drug/Non Drug [...] Vaccine Route Administration Date Status Comme nts Influenza Unknown 03/08/2018 Administered Influenza Unknown 04/07/2019 Administered COVID-19 Pfizer BioNTech Vaccine Unknown 10/04/2020 Adm inistered Social History Tobacco Use: Social History Observation [...] atherosclerosis of arteries of lower limbs (disorder) ([id number] ) Atherosclerosis of wales artery of both lower extremities, with unspecified presence of clinical manifestation (I70.203) Active confirmed Vital Signs Heart Rate 74 /min 11/10/2024 Blood pressure diastolic 84 mm Hg 11/10/2024 Height 6ft 2in in 11/10/2024 Blood pressure systolic 133 mm Hg 11/10/2024 Weight 204 lbs 11/10/2024 BMI 26.19 kg/m2 11/10/2024 Procedures Procedure Date Ordered Date Performed Result Body Sit e 74602-YBRCKZN NAIL, 6 OR MORE 02/15/2024 N/A 88967-FCNE SKIN LESIONS, 2 TO 4 02/15/2024 N/A 26474-BZGDFTS NAIL, 6 OR MORE 05/19/2024 N/A 01359-AAPY SKIN LESIONS, 2 TO 4 05/19/2024 N/A 51638-DQGMLUR NAIL, 6 OR MORE 11/10/2024 N/A 93465-SFMQ SKIN LESIONS, 2 TO 4 11/10/2024 N/A Encounters Encounter Location Date Provider Diagnosis [address] [address] 02/15/2024 Gume Salas Atherosclerosis of wales artery of both lower extremities, with unspecified presence of clinical manifestation I70.203 ; Tinea unguium B35.1 ; Pain in right toe(s) M79.674 and Pain in left toe(s) M79.[address] [address] 05/19/2024 Gume Josue Atherosclerosis of wales artery of both lower extremities, with unspecified presence of clinical manifestation I70.203 ; Tinea unguium B35.1 ; Pain in right toe(s) M79.674 and Pain in left toe(s) M79.[address] [address] 11/10/2024 Gume Salas Atherosclerosis of wales artery of both lower extremities, with unspecified presence of clinical manifestation I70.203 ; Tinea unguium B35.1 ; Pain in right toe(s) M79.674 ; Pain in left toe(s) M79.675 and Ingrown nail L60.0 [facility] [place] [address] [place] [address] 08/16/2024 Gume Salas Assessments Encounter Date Diagnosis (ICD Code) Assessment Notes Treatment Notes Treatment Clinical Notes Section Notes 02/15/2024 Tinea unguium (ICD-10 - B35.1) 02/15/2024 Atherosclerosis of wales artery of both lower extremities, with unspecified presence of clinical manifestation (ICD-10 - I70.203) 05/19/2024 Tinea unguium (ICD-10 - B35.1) 05/19/2024 Atherosclerosis of wales artery of both lower extremities, with unspecified presence of clinical manifestation (ICD-10 - I70.203) 11/10/2024 Tinea unguium (ICD-10 - B35.1) 11/10/2024 Atherosclerosis of wales artery of both lower extremities, with unspecified [...] Treatment Pending Test Test Name Order Date 95281-MMGQSIM NAIL, 6 OR MORE 03/27/2011 58126-PBPVSVC NAIL, 6 OR MORE 06/12/2011 80314-UMZOSRZ NAIL, 6 OR MORE 09/11/2011 65170-BEUSVSM NAIL, 6 OR MORE 12/18/2011 63217-MBKIYOZ NAIL, 6 OR MORE 03/18/2012 73654-WZLFKVP NAIL, 6 OR MORE 06/17/2012 76685-HKWKMVK NAIL, 6 OR MORE 09/02/2012 83691-TTUNTOU NAIL, 6 OR MORE 11/11/2012 29727-EBQHASP NAIL, 6 OR MORE 02/10/2013 16616-RFAVIUF NAIL, 6 OR MORE 05/19/2013 31852-CVIOSVL NAIL, 6 OR MORE 08/18/2013 30425-WCINNTM NAIL, 6 OR MORE 11/10/2013 10392-PHHCLQG NAIL, 6 OR MORE 02/16/2014 32131-MVJFZFI NAIL, 6 OR MORE 05/18/2014 02630-VDYKVUS NAIL, 6 OR MORE 08/17/2014 15920-IGCDYUC NAIL, 6 OR MORE 11/16/2014 20083-TJCXEAP NAIL, 6 OR MORE 02/15/2015 91238-KREAPFF NAIL, 6 OR MORE 05/10/2015 72694-DTGYZAV NAIL, 6 OR MORE 08/09/2015 84965-XUTKGCW NAIL, 6 OR MORE 11/07/2015 20632-UHAXMYL NAIL, 6 OR MORE 02/06/2016 53165-NBLENMM NAIL, 6 OR MORE 05/07/2016 71750-MYJWFTO NAIL, 6 OR MORE 08/06/2016 28818-AKUITGL NAIL, 6 OR MORE 11/05/2016 73919-KCRVJPB NAIL, 6 OR MORE 02/04/2017 79335-CABXVLA NAIL, 6 OR MORE 05/06/2017 06262-VOMKNRS NAIL, 6 OR MORE 08/06/2017 48525-AAHRKDO NAIL, 6 OR MORE 11/09/2017 90401-LGANLYS NAIL, 6 OR MORE 02/08/2018 90326-RHXZIRF NAIL, 6 OR MORE 05/10/2018 01771-XXHBRJA NAIL, 6 OR MORE 08/11/2018 87017-LKWHITW NAIL, 6 OR MORE 11/11/2018 12188-UZYUYJT NAIL, 6 OR MORE 02/10/2019 04100-OITZUSS NAIL, 6 OR MORE 05/19/2019 73324-TZTXSRD NAIL, 6 OR MORE 10/03/2019 01903-DZMTFMJ NAIL, 6 OR MORE 01/02/2020 10828-IYNASOQ NAIL, 6 OR MORE 03/29/2020 30988-LOIEHMV NAIL, 6 OR MORE 07/09/2020 97139-AUBHBHK NAIL, 6 OR MORE 10/08/2020 64866-UPTHYLI NAIL, 6 OR MORE 01/10/2021 89758-WBVVVDL NAIL, 6 OR MORE 04/10/2021 50841-XAHRNSN NAIL, 6 OR MORE 07/11/2021 69111-VMSNEIU NAIL, 6 OR MORE 10/14/2021 72474-SASWWNC NAIL, 6 OR MORE 01/15/2022 91490-CFBODIY NAIL, 6 OR MORE 04/23/2022 14765-QECQUAS NAIL, 6 OR MORE 09/03/2022 27813-MOHYERY NAIL, 6 OR MORE 11/17/2022 04967-FIBTRHP NAIL, 6 OR MORE 02/16/2023 82846-FSWQJSX NAIL, 6 OR MORE 05/18/2023 91731-OWSXYYQ NAIL, 6 OR MORE 08/17/2023 52041-YEAPFCO NAIL, 6 OR MORE 11/16/2023 59020-QHUCOTG NAIL, 6 OR MORE 02/15/2024 38060-IETILIU NAIL, 6 OR MORE 05/19/2024 80419-EIJTYZF NAIL, 6 OR MORE 11/10/2024 19864-Kcln Destruction, -02/15/2015 76345-Kiqx Destruction, 07-1911/16/2014 47174-Qqih Destruction, 07-1908/17/2014 99384-Wuvo Destruction, 07-1906/12/2011 74195-Qcsi Destruction, 07-1905/18/2014 94720-Wefw Destruction, 07-1906/17/2012 92850-Blzo Destruction, 07-1903/18/2012 68121-Kpyo Destruction, 07-1912/18/2011 28749-Kkse Destruction, 07-1909/11/2011 40189-Xcfh Destruction, 07-1903/27/2011 15605-Hdiydwbd Plate 06/12/2011 73433-Rybcqeyz Plate 09/11/2011 93985-Ixcbxaip Plate 12/18/2011 41627-Aepcegil Plate 03/18/2012 25697-Aqmzrkil Plate 06/17/2012 86560-Ngfdewch Plate 05/18/2014 78357-Onbsawps Plate 02/16/2014 50992-Fhkefyho Plate 11/10/2013 06772-Ktvzxqqv Plate 08/18/2013 84946-Mxdehxds Plate 05/19/2013 49534-Gujscqmu Plate 02/10/2013 35234-Nlkqrhad Plate 11/11/2012 73746-Bpcflqfo Plate 08/17/2014 93178-Wgnyusfo Plate 11/16/2014 93428-Ciecluyy Plate 02/15/2015 66076-Ucyfzxkc Plate 08/09/2015 77906-Scnsbkaj Plate 05/10/2015 04224-Bbprlzeh Plate 11/11/2018 43350-Lobajyfs Plate 08/11/2018 74793-Vcluiuuv Plate 05/10/2018 87702-Hebqclhv Plate 08/06/2017 91397-Sxkugkbm Plate 11/17/2022 40238-Arncviiq Plate 09/03/2022 15881-Cijcylvj Plate 04/23/2022 51261-Nbsfvbde Plate 01/15/2022 54644-Gwsjngfe Plate 10/14/2021 88908-Vefjjotv Plate 07/11/2021 20505-Xcsmtswv Plate 04/10/2021 74714-Vwwxxgwo Plate 01/10/2021 05393-Hcmojorq Plate 10/08/2020 90012-Ypkgxofs Plate 07/09/2020 28636-Jkimpfcy Plate 03/29/2020 03372-Vdeciuzb Plate 01/02/2020 14809-Ncvtachg Plate 10/03/2019 59757-Vujsebgl Plate 05/19/2019 83344-Kmwjkgpj Plate 02/10/2019 71381-Mxjhbmpr Plate Each Additional 63436-Nwmlzxpx Plate Each Additional 10/2020 63192-Hsexybpj Plate Each Additional 11/2020 49471-Hcaraonv Plate Each Additional 02/2021 54994-Umrkytji Plate Each Additional 11/2014 90356-Gpzivtmo Plate Each Additional 10/2015 37778-Xibususo Plate Each Additional 80269-Zdwgjudu Plate Each Additional 69610-Smourbfi Plate Each Additional 06/2015 76087-Alopqnct Plate Each Additional 28945-Yflbhgdz Plate Each Additional 02/2014 79203-Xjkcqrfd Plate Each Additional 68575-Xkpuejkb Plate Each Additional 35004-Drfnfcll Plate Each Additional 40525-Vgqnuptq Plate Each Additional 02/2012 47098-KVK 01/24/2021 09078- Debride <25 sq cm 10/08/2020 36520-QUZXURK SKIN/TISSUE 02/07/2021 73768 I&D ABSCESS- SIMPLE,SINGLE 024 01045 I&D ABSCESS- SIMPLE,SINGLE 011 96125-YWVF SKIN LESIONS, 2 TO 4 11/18/19 23 50502-ADXN SKIN LESIONS, 2 TO 4 02/17/20 23 33032-IHNM SKIN LESIONS, 2 TO 4 08/17/19 24 65155-VPKT SKIN LESIONS, 2 TO 4 05/18/20 23 17562-HZRY SKIN LESIONS, 2 TO 4 11/11/19 25 32971-KMNF SKIN LESIONS, 2 TO 4 05/19/20 24 21251-DLWW SKIN LESIONS, 2 TO 4 02/15/20 24 59099-KALL SKIN LESIONS, 2 TO 4 11/16/19 24 87304-DFRI SKIN LESIONS, 2 TO 4 09/04/19 23 29571-Nqgd. Subungual Hematoma 3 Next Appt Details Provider Name:Gume Salas , 02/01/2025 09:30:00 AM, [facility] [address], [address], Provider Name:Gume Salas , 02/23/2025 08:30:00 AM, [address] [address], [place], [address], Insurance Providers Payer Name Payer Address Payer Phone Subscriber Number Group Number Insured Name Patient Relationship to Insured Coverage Start Date Coverage End Date Medicare National Govt [facility] [address] [facility] [place] [address] [phone] [id number] Telly Silverman Self - patient is the insured 6 [employer] [address] [place] [address] [id number] Telly Silverman Self - patient is the [...]
== END 2025-01-30 10:53 | disposition home or self-care (01) ==
LOC: HO.HMCH 10:00
DX: I10 Essential (primary) hypertension (principal); I25.10 Atherosclerotic heart disease of native coronary artery without angina pectoris; I77.810 Thoracic aortic ectasia; E78.5 Hyperlipidemia, unspecified; K22.719 Barrett's esophagus with dysplasia, unspecified; R35.1 Nocturia; K21.9 Gastro-esophageal reflux disease without esophagitis

== ENCOUNTER → 2025-01-30 09:59 | Outpatient (BNVA) | payer MEDICARE, SELFPAY | PROVIDERS: PCP Internal Medicine | DX: I10 Essential (primary) hypertension (principal); I25.10 Atherosclerotic heart disease of native coronary artery without angina pectoris; I77.810 Thoracic aortic ectasia; E78.5 Hyperlipidemia, unspecified; K22.719 Barrett's esophagus with dysplasia, unspecified; R35.1 Nocturia; K21.9 Gastro-esophageal reflux disease without esophagitis | CPT/HCPCS: 99212 ==

== ENCOUNTER 2025-04-24 09:02 | Outpatient (REF) | payer MEDICARE, SELFPAY ==
[2025-04-24 09:22] LABS: MANUAL DIFF FLAG NO
[2025-04-24 09:43] LABS: Hematocrit 38.1 % (42.0-52.0); Hemoglobin 12.9 g/dl (14.0-18.0); Imm Gran Abs Auto 0.01 X10*3/uL (0.00-0.03); Imm Gran Pct Auto 0.2 % (0.0-0.4); Lymphocytes Absolute Auto 1.0 X10*3/uL (1.2-4.9); Mean Corpuscular HGB Conc 33.9 g/dl (31.0-36.0); Mean Corpuscular Hemoglobin 30.4 pg (27.0-33.0); Mean Corpuscular Volume 89.6 fL (80.0-98.0); NRBC Abs Auto 0.000 X10*3/uL (0.0-0.012); NRBC Pct Auto 0.0 /100WBC (0.0-0.2); Platelet Count 200 X10*3/uL (160-400); Red Blood Count 4.25 X10*6/uL (4.60-5.80); White Blood Count 5.2 X10*3/uL (4.8-10.8)
[2025-04-24 09:52] LABS: Appearance Urine Clear; Glucose Urine UA Negative (Negative); PH 6.0 (5.0-9.0); Specific Gravity - Urine 1.025 (1.005-1.025)
[2025-04-24 10:20] LABS: Alanine Aminotransferase 22 U/L (0-40); Albumin Level 4.0 g/dL (3.5-5.0); Alkaline Phosphatase 86 U/L (39-117); Anion Gap 14 (12-20); Aspartate Amino Transferase 20 U/L (5-37); Blood Urea Nitrogen 27 mg/dL (9-16); Calcium 9.1 mg/dL (8.4-10.2); Carbon Dioxide 25 mmol/L (22-29); Chloride 107 mmol/L (96-108); Cholesterol 131 mg/dL (<200); Estimated Glomerular Filt Rate > 60; HDL Cholesterol 39 mg/dL (>40); Potassium 3.4 mmol/L (3.3-5.1); Sodium 143 mmol/L (135-145); Total Protein 6.1 g/dL (6.5-8.0); Triglycerides 70 mg/dL (<150)
[2025-04-24 10:26] LABS: Prostate Specific Antigen 1.95 ng/mL (<0.05-4.0)
[2025-04-24 10:42] LABS: Folate 8.4 ng/mL (> or = 4.0); Vitamin B12 333 pg/mL (200-900)
== END 2025-04-24 09:03 | disposition home or self-care (01) ==
LOC: HO.LAB 09:02
PROVIDERS: Nurse Practitioner Family
DX: Z00.00 Encounter for general adult medical examination without abnormal findings (principal); I25.10 Atherosclerotic heart disease of native coronary artery without angina pectoris; D64.9 Anemia, unspecified; N32.0 Bladder-neck obstruction; K22.70 Barrett's esophagus without dysplasia; E78.5 Hyperlipidemia, unspecified; I77.810 Thoracic aortic ectasia; H40.9 Unspecified glaucoma; I10 Essential (primary) hypertension; Z13.21 Encounter for screening for nutritional disorder; Z12.5 Encounter for screening for malignant neoplasm of prostate; Z13.1 Encounter for screening for diabetes mellitus
CPT/HCPCS: 36415; 80053; 80061; 81003; 82306; 82607; 82746; 83036; 84153; 84443; 85025

== ENCOUNTER 2025-05-02 09:06 | Outpatient (AMB) | payer MEDICARE, SELFPAY ==
--- OUTSIDE RECORDS SUMMARY | 2024-08-18 10:00 | XMS_ITS ---
Author Organization [facility] Address [address] [place] [address] Care Team Providers Care Press Tender Name Role Phone Eusebio Farias Primary Care Provider Unavailabl Gume Suarez Unavailable [phone] Encounters Encounter Location Date Provider Diagnosis [address] [address] 08/18/2024 Gume Salas Plan Of Treatment Next Appt Details Provider Name:Gume Salas , 06/08/2025 08:45:00 AM, [facility] [address], [place], [address], Progress Notes * Telly SILVERMAN WDOB: 0 (74 yo M)Acc No.[id number]:08/18/2024 Progress Note Patient: Telly BLANCO Provider: Morteza Salas DPM :1950 A ge:73 Y S ex:Male Date:08/18/2024 Address:[address] [place] [id number] Pcp:Eusebio Farias Subjective: * Chief Complaints: * * Medical History: Objective: * Vitals: Assessment: Plan: * Treatment: * Images: * The named appointment provid er may or may not be the originator of this progress note, and it is not deemed complete until electronically signed by the appointment provider. Sign off status: Pending * Provider: Morteza Salsa DPM Date: 0 08/18/2024 Generated for Savannah thomas/Paige/Yvroseitting on: 1 10:11 AM EDT
--- OUTSIDE RECORDS SUMMARY | 2025-02-15 04:30 | XMS_ITS ---
Author Organization [facility] Address [address] [place] [address] Care Team Providers Care Fire Truck Driver Name Role Phone Eusebio Farias Primary Care Provider Unavailabl Gume Suarez Unavailable [phone] Schwartz Encounters Encounter Location Date Provider Diagnosis [address] [address] 02/15/2025 Gume Salas Plan Of Treatment Next Appt Details Provider Name:Gume Salas , 06/08/2025 08:45:00 AM, [address] [place] [address], [phone], Progress Notes * Telly SILVERMAN WDOB: 0 (74 yo M)Acc No.[id number]:02/15/2025 Progress Notes Patient: Telly BLANCO Provider: Morteza Salas DPM :1950 A ge:74 Y S ex:Male Date:02/15/2025 Address:[address] [place] [phone] Pcp:Eusebio Farias Subjective: * Chief Complaints: * [...] 02/15/2025 Generated for Savannah thomas/Job on: 1 10:10 AM EDT
[2025-05-02 09:28] VITALS: BP 130/70; PULSE 75; RESP 18; TEMP 36.3; O2SAT 98; BMI 26.4
--- NOTE | 2025-05-02 09:28 | MHC.PC.OV ---
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 Accompanied by: Self / Same As Patient Allergies No Known Allergies Allergy (Verified 05/02/25 09:50) Medication List - Last Reconciled 05/02/25 by MANOHAR Godoy amlodipine 5 mg PO DAILY aspirin (Adult Low Dose Aspirin) 81 mg PO DAILY atorvastatin 80 mg PO DAILY ezetimibe 10 mg PO DAILY finasteride 5 mg PO DAILY 90 days losartan-hydrochlorothiazide 100-25 mg 1 tab PO DAILY omeprazole 10 mg PO DAILY tamsulosin (Flomax) 0.4 mg PO BEDTIME 90 days timolol 0.5% 1 drp ophthalmic (eye) ONCE Tobacco use date assessed: 05/02/25 Fall risk assessment: No Falls in past year Last assessed Fall Risk: 05/02/25 Dental Screening Dental Screen Date: 05/02/25 Did you have a dental visit in the last 12 months?: No Did you have a dental problem in the last 6 months where you did not have access to dental care?: No Was dental information given to patient?: No HPI anemia/hld/htn/cad HPI Details THE PATIENT IS A 74-YEAR-OLD MALE PRESENTING FOR ANEMIA, HLD, HTN, CAD FOLLOW UP Patient reports that he is feeling okay with no concerns today Reports that he did get an appointment to see GI on May 09 for a colonoscopy He denies chest pain, shortness of breath, heart palpitation dizziness Denies abdominal pain or change in bowel habits Denies any new urinary symptoms PFSH Medical History GERD (gastroesophageal reflux disease) Screening for diabetes mellitus Urinary hesitancy Urinary urgency Other and unspecified hyperlipidemia Atherosclerotic cardiovascular disease Hypertension Surgical History History of discectomy H/O endoscopy History of colonoscopy History of eye surgery History of colonoscopy History of lumbar surgery History of cholecystectomy Family History Father No problems noted. Mother No problems noted. Sister No problems noted. Social History Housing: House Alcohol intake: never Patient Tobacco Use Status: Former Tobacco user Tobacco use type: Cigarette e-Cigarette/Vaping Use: Never Used Second Hand Smoke Exposure: Yes service: No Current occupational status: retired Current occupational exposures/hazards: No Cognitive needs: No Hearing needs: No Vision needs: Yes (glasses) Questionnaire PHQ-9 Over the last 2 weeks, how often have you been bothered by any of the following problems? Depression Screening Interpretation: Negative Depression Screening Done: Yes Source: Developed by Drs. Rajesh Foster, Sabina Arora, Thiago Zavala and colleagues, with an educational lance from [employer]. Thrive Questionnaire Date Thrive assessed: 01/09/25 I am a: Patient What is your living situation today?: I have a steady place to live Within the past 12 months, did the food you bought not last and you didn't have the money to get more?: Never true Within the past 12 months, did you worry whether your food would run out before you got money to buy more?: Never true Do you have trouble paying for medicines?: No Do you have trouble getting transportation to medical appointments?: No Do you have trouble paying your heating and electricity bill?: No Do you have trouble taking care of your child, family member or friend?: No Do you have trouble with day-to-day activities such as bathing, preparing meals, shopping, managing finances, etc.?: No Are you currently unemployed and looking for a job?: I choose not to answer this question Are you interested in more education?: No Please select the resources that you would like help with: None Currently or been in a relationship where the following occur: No concerns reported THRIVE Score: 0 WILDA-7 AMB Questionnaire WILDA-7 Date WILDA - 7 assessed: 01/30/25 Source: Developed by Drs. Rajesh Foster, Sabina Arora, Thiago Zavala and colleagues, with an educational lance from [employer]. Review of Systems Const Denies body aches, Denies chills, Denies fever(s), Denies headache(s) and Denies poor appetite Eyes Reports no additional complaints ENT Denies dysphagia, Denies dizziness, Denies headache(s) and Denies odynophagia Card Denies chest pain, Denies syncope, Denies edema, Denies irregular heart rhythm, Denies lightheadedness and Denies dyspnea Resp Denies cough, Denies dyspnea and Denies wheezing GI Denies abdominal pain, Denies constipation, Denies dysphagia, Denies diarrhea, Denies nausea, Denies odynophagia and Denies vomiting Reports no additional complaints Musc Reports no additional complaints and Denies abnormal gait Skin/Breast Reports system reviewed and no additional complaints, except as documented Neuro Denies Abnormal speech present, Denies abnormal gait, Denies dizziness, Denies syncope and Denies headache(s) Psych Reports no additional complaints Brian/Lymph Denies easy bleeding and Denies easy bruising Aller/Immun Denies wheezing Physical exam (Primary Care) Vital Signs: Last Vital Signs Temp 97.3 F 05/02/25 09:28 Pulse 75 05/02/25 09:28 Resp 18 05/02/25 09:28 BP 130/70 05/02/25 09:28 Pulse Ox 98 05/02/25 09:28 Oxygen Delivery Method Room Air 05/02/25 09:28 BMI result Body Mass Index 26.4 Tobacco/Smoking Status: Tobacco use Status Tobacco use date assessed 05/02/25 05/02/25 09:33 Patient Tobacco Use Status Former Tobacco user 05/02/25 09:33 Tobacco use type Cigarette 05/02/25 09:33 e-Cigarette/Vaping Use Never Used 05/02/25 09:33 Depression Screening Interpretation: Negative Thrive Assessment: Date of Thrive Assessment Date Thrive assessed 01/09/25 05/02/25 09:33 Currently or been in a relationship where the following occur: No concerns reported Const General: healthy appearing, no acute distress, alert and awake Nutritional Appearance: well nourished Orientation/consciousness: oriented to person, oriented to place and oriented to time HENMT Ears: TM's normal bilaterally General nose exam: Normal nasal mucous membranes and turbinates present Eyes Conjunctivae: conjunctivae normal Sclerae: sclerae normal Pupils: Equal, round and reactive pupils present Neck Neck: Yes no lymphadenopathy and Yes no JVD Thyroid: Thyroid normal Carotids: no bruits Resp Effort & Inspection: normal respiratory effort and not tachypneic Auscultation: no crackles, no rales, no rhonchi and no wheezes Cardio Rate: regular rate Rhythm: regular rhythm Heart sounds: no murmurs and normal S1 and S2 GI Palpation (GI): Soft to palpation, nontender, no hepatomegaly and no splenomegaly Auscultation: normal bowel sounds Skin General skin exam: no rashes or lesions noted and dry skin Neuro General: oriented to person, oriented to place and oriented to time Cranial nerves: Yes Equal, round and reactive pupils present Speech: No Abnormal speech present Gait exam (Neuro): Normal gait present Motor exam (neuro): no tremor noted Extrem Right upper extremity: full ROM Left upper extremity: full ROM Right lower extremity: full ROM; no edema Left lower extremity: full ROM; no edema Psych Mental Status: mental status grossly normal Speech and movement: Normal speech and movement present Affect: normal affect Attitude: cooperative Thought process: Normal thought process present Results Reviewed Results Reviewed: Laboratory Tests 04/24/25 09:20 WBC 5.2 RBC 4.25 L Hgb 12.9 L Hct 38.1 L MCV 89.6 MCH 30.4 MCHC 33.9 RDW 13.4 Plt Count 200 Sodium 143 Potassium 3.4 Chloride 107 Carbon Dioxide 25 Anion Gap 14 BUN 27 H Creatinine 1.02 Estimated GFR > 60 Fasting Glucose 104 H Estimat Average Glucose 108 Hemoglobin A1c % 5.4 Calcium 9.1 Total Bilirubin 0.6 AST 20 ALT 22 Alkaline Phosphatase 86 Total Protein 6.1 L Albumin 4.0 Triglycerides 70 Cholesterol 131 LDL Cholesterol, Calc 78 HDL Cholesterol 39 L Prostate Specific Ag 1.95 Vitamin B12 333 25-OH Vitamin D Total 45.3 Folate 8.4 TSH 1.37 Urine Color Yellow Urine Appearance Clear Urine pH 6.0 Ur Specific Dighton 1.025 Urine Protein Trace Urine Glucose (UA) Negative Urine Ketones Trace Urine Blood Negative Urine Nitrite Negative Ur Leukocyte Esterase Negative Coding Level of Care Code Est Pt Level 4 (51928) Diagnoses Essential hypertension I10 Atherosclerotic cardiovascular disease I25.10 Ascending aorta dilatation I77.810 Hyperlipidemia, unspecified hyperlipidemia type E78.5 Hyperlipidemia type: unspecified 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 Koroma's esophagus type: with dysplasia of unspecified degree Nocturia more than twice per night R35.1 Gastroesophageal reflux disease, unspecified whether esophagitis present K21.9 Esophagitis presence: esophagitis presence not specified Anemia, unspecified type D64.9 Anemia type: unspecified type IFG (impaired fasting glucose) R73.01 Time Spent (min) 39 Assessment & Plan Assessment & Plan (1) Essential hypertension: Code(s): I10 - Essential (primary) hypertension Category: Medical Plan: Blood pressure 130/70 in office today Reinforced low-salt diet Continue amlodipine 5 mg daily, losartan-hydrochlorothiazide 100-25 mg daily, (2) Atherosclerotic cardiovascular disease: Code(s): I25.10 - Atherosclerotic heart disease of [place] coronary artery without angina pectoris Category: Medical Plan: Patient had mild calcific plaque in the left distal main and mild to moderate calcific plaque throughout LAD. Mild diffuse calcific plaque throughout the RCA and circumflex on coronary CTA in 2019. Patient has been stable without anginal symptoms. Continue aspirin 81 mg, and atorvastatin 80 mg daily (3) Ascending aorta dilatation: Code(s): I77.810 - Thoracic aortic ectasia Category: Medical Plan: Ascending aorta is stable at 4.1 cm on recent echocardiogram. We will continue strict blood pressure control (4) Hyperlipidemia: Code(s): E78.5 - Hyperlipidemia, unspecified Category: Medical Qualifiers: Hyperlipidemia type: unspecified Qualified Code(s): E78.5 - Hyperlipidemia, unspecified Plan: Triglycerides 70, total cholesterol 131, LDL 78, HDL 39 Reinforced low-cholesterol diet and activity as tolerated Continue atorvastatin 80 mg daily, ezetimibe 10 mg daily We will repeat lipid panel in 3 months (5) Barretts esophagus: Code(s): K22.70 - Koroma's esophagus without dysplasia Category: Medical Qualifiers: Koroma's esophagus type: with dysplasia of unspecified degree Qualified Code(s): K22.719 - Koroma's esophagus with dysplasia, unspecified Plan: Patient has a history of Koroma's esophagus in his due for follow up EGD. Requesting a referral to [facility] (6) Nocturia more than twice per night: Code(s): R35.1 - Nocturia Category: Medical Plan: Reports that the symptoms that decreased significantly is all dependent on how much he drinks prior to going to bed. Continue finasteride 5 mg, Flomax 0.4 mg at bedtime Follow up with Urology as scheduled (7) GERD (gastroesophageal reflux disease): Code(s): K21.9 - Gastro-esophageal reflux disease without esophagitis Category: Medical Qualifiers: Esophagitis presence: esophagitis presence not specified Qualified Code(s): K21.9 - Gastro-esophageal reflux disease without esophagitis Plan: Do not eat meals or drink carbonated beverages within 3 hr of bedtime Decrease the amount of fried, fatty, and spicy foods to decrease gastric acid production Raise the head of the bed using 4 to 6-inch blocks, especially if nocturnal symptoms are present Lose weight if indicated; avoid tight-fitting clothing, especially around the waist Avoid foods that relax the Lower esophageal sphincter (chocolate, peppermint, high-fat foods etc.,) Continue omeprazole 10 mg daily (8) Anemia: Code(s): D64.9 - Anemia, unspecified Category: Medical Qualifiers: Anemia type: unspecified type Qualified Code(s): D64.9 - Anemia, unspecified Plan: RBC 4.25, H&H 12.9/38.1 The patient's anemia is likely anemia of chronic disease, as his vitamin B12 and folate levels are normal, and other indices do not suggest an iron deficiency. The anemia is not considered critical and does not warrant a transfusion at this time. Will check iron levels with the next set of labs. We will repeat CBC in 3 months (9) IFG (impaired fasting glucose): Code(s): R73.01 - Impaired fasting glucose Category: Medical Plan: Fasting glucose was 104, A1c 5.4% Encouraged low sugar/carbohydrate diet Plan Return in 3 months Orders: Orders IRON PROFILE 3 Months E78.5 - Hyperlipidemia, unspecified, I25.10 - Atherosclerotic heart disease of [place] coronary artery without angina pectoris, I77.810 - Thoracic aortic ectasia, K21.9 - Gastro-esophageal reflux disease without esophagitis Complete Blood Count Auto Diff 3 Months E78.5 - Hyperlipidemia, unspecified, I25.10 - Atherosclerotic heart disease of [place] coronary artery without angina pectoris, I77.810 - Thoracic aortic ectasia, K21.9 - Gastro-esophageal reflux disease without esophagitis Comprehensive Prospect. Panel Fast 3 Months E78.5 - Hyperlipidemia, unspecified, I25.10 - Atherosclerotic heart disease of [place] coronary artery without angina pectoris, I77.810 - Thoracic aortic ectasia, K21.9 - Gastro-esophageal reflux disease without esophagitis Lipid Panel 3 Months E78.5 - Hyperlipidemia, unspecified, I25.10 - Atherosclerotic heart disease of [place] coronary artery without angina pectoris, I77.810 - Thoracic aortic ectasia, K21.9 - Gastro-esophageal reflux disease without esophagitis TSH reflex Free T4 3 Months E78.5 - Hyperlipidemia, unspecified, I25.10 - Atherosclerotic heart disease of [place] coronary artery without angina pectoris, I77.810 - Thoracic aortic ectasia, K21.9 - Gastro-esophageal reflux disease without esophagitis UA CC w/rflx Micro + Cult 3 Months E78.5 - Hyperlipidemia, unspecified, I25.10 - Atherosclerotic heart disease of [place] coronary artery without angina pectoris, I77.810 - Thoracic aortic ectasia, K21.9 - Gastro-esophageal reflux disease without esophagitis Vitamin D 25-OH Total 3 Months E78.5 - Hyperlipidemia, unspecified, I25.10 - Atherosclerotic heart disease of [place] coronary artery without angina pectoris, I77.810 - Thoracic aortic ectasia, K21.9 - Gastro-esophageal reflux disease without esophagitis
--- OUTSIDE RECORDS SUMMARY | 2025-05-02 10:11 | XMS_ITS | Clinical Summary ---
Author Organization [facility] [address] [facility] [place] Address [address] [place] [address] Phone Care Team Providers Care Clinical Services Professional Name Role Phone Eusebio Farias WILLIE Primary Care Provider [phone] Encounters Date Type Department Care Team Description 02/03/2025 Telephone Gastroenterology - [address] [phone] Chuck Ch MD from Last 3 Months Social History Tobacco Use Types Packs/Day Years Used Date Smoking Tobacco: Never Smokeless Tobacco: Never Alcohol Use Standard Drinks/Week Comments No 0 (1 standard drink = 0.6 oz pur e alcohol) Sex and Gender Information Value Date Recorded Sex Assigned at Not on file Legal Sex Male 10:22 PM EST Gender Identity Not on file Sexual Orientation Not on file Obstetrics History Plan of Treatment Upcoming Encounters Date Type Department Care Team ([facility] st Contact Info) Description 05/09/2025 1:00 PM EST Office Visit Gastroenterology - [address] [place] [phone] Panfilo Khan MD [address] [place] [phone] Health Maintenance Due Date Last Done Comments Colorectal Cancer Screening: Colonoscopy 1950 DTaP,Tdap,and Td Vaccines (1 - Tdap) 1968 Pneumococcal Vaccine: 50+ Ye ars (1 of 1 - PCV) 09/10/1999 Zoster Vaccines (1 of 2) 09/10/1999 Depression Screening 07/06/2024 RSV Immunization Adult Patie nts (1 - 1-dose 75+ series) 2024 Abdominal Aortic Aneurysm (A AA) Screen 02/03/2025 Cholesterol Screening (Lipid Panel) 02/03/2025 Falls Risk Assessment 02/03/2025 Hepatitis C Screening 02/03/2025 Hypertension/CHF/CAD Annual BMP Blood Test 02/03/2025 Medicare Annual Wellness Visit 02/03/2025 Social Influencers of Health Screening 02/03/2025 COVID-19 Vaccine ( - 2023-2 5 season) 2025 Influenza Vaccine (#1) 2025 HIB Vaccines Aged Out No longer eligi ble based on patient's age to complete this topic HPV Vaccines Aged Out No longer eligi ble based on patient's age to complete this topic Hepatitis A Vaccines Aged Out No long er eligible based on patient's age to complete this topic Hepatitis B Vaccines Aged Out No long er eligible based on patient's age to complete this topic IPV Vaccines Aged Out No longer eligi ble based on patient's age to complete this topic MMR Vaccines Aged Out No longer eligi ble based on patient's age to complete this topic Meningococcal ACWY Vaccine Aged Out N o longer eligible based on patient's age to complete this topic Meningococcal B Vaccine Aged Out No l onger eligible based on patient's age to complete this topic RSV Immunization Patients Un anjelica 20 months Aged Out No longer eligible b ased on patient's age to complete this topic Varicella Vaccines Aged Out No longer eligible based on patient's age to complete this topic Insurance MEDICARE BLUE [place] - [place] Care Teams Clinical Services Professional Relationship Specialty Start Date End Date Eusebio Farias FNP [address] [place] [phone] PCP - General Family Medicine 02/03/25
--- OUTSIDE RECORDS SUMMARY | 2025-05-02 10:11 | XMS_ITS | Patient Health Record ---
Author Organization [facility] Address [address] [facility] [place] [address] Care Team Providers Care Team Sports Sales Associate Name Role Phone Donis Fariasurice Primary Care Provider Gume Rosario Unavailable [phone] Allergies Allergen (clinical drug ingredient) Drug/Non Drug Allergy documented on EMR Reaction Allergy Type Onset Date Status Seasonale Unknown Drug Allergy Active Reason For Referral No Information Medications Medication SIG (Take, Route, Frequency, Duration) Notes Start Date End Date Status vitamin D 11/10/2013 Active Valsartan-hydroCHLOROthia zide 80-12.5 MG Orally Active Timolol Maleate 0.5 % INSTILL 1 DROP IN EACH EYE TWICE A DAY Ophthalmic; Duration: 20 Active Tamsulosin HCl 0.4 MG 1 capsule Orally O nce a day; Duration: 30 day(s) Active aspirin baby 11/10/2013 Active Lisinopril 40mg Not- Taking Simvastatin Not-Taki ng Lisinopril-hydroCHLOROthi azide 20-12.5 MG TAKE 2 TABLETS ONCE A DAY Oral; Duration: 90 Not-Takin g Omeprazole Active Flonase Active Atorvastatin Calcium 40 MG TAKE 1 TABLET BY MOUTH EVERY DAY Oral; Duration: 90 Active amLODIPine Besylate Active Immunizations Vaccine Route Administration Date Status Comme nts COVID-19 Pfizer BioNTech Vaccine Unknown 10/04/2020 Adm inistered Influenza Unknown 03/08/2018 Administered Influenza Unknown 04/07/2019 Administered Influenza Unknown 03/09/2024 Administered Social History Tobacco Use: Social History [...] atherosclerosis of arteries of lower limbs (disorder) ([id number] ) Atherosclerosis of [place] artery of both lower extremities, with unspecified presence of clinical manifestation (I70.203) Active confirmed Problem Skin ulcer of to e of right foot with fat layer exposed (L97.512) Active confirmed Vital Signs Heart Rate 74 /min 11/10/2024 Blood pressure diastolic 84 mm Hg 02/23/2025 Height 6ft 2in in 02/23/2025 Blood pressure systolic 133 mm Hg 02/23/2025 Weight 204 lbs 02/23/2025 BMI 26.19 kg/m2 02/23/2025 Procedures Procedure Date Ordered Date Performed Result Body Sit e 15409-DDWPRWA NAIL, 6 OR MORE 05/19/2024 N/A 27651-FDZJ SKIN LESIONS, 2 TO 4 05/19/2024 N/A 93726-ZOLSNTE NAIL, 6 OR MORE 11/10/2024 N/A 80940-PRWR SKIN LESIONS, 2 TO 4 11/10/2024 N/A 44047-XNO 02/01/2025 N/A 62655-DEDLOHQ NAIL, 6 OR MORE 02/23/2025 N/A 20382-RMBUZKJ SKIN/TISSUE 02/23/2025 N/A 79434-FKHC SKIN LESIONS, 2 TO 4 02/23/2025 N/A Encounters Encounter Location Date [facility] [address] 05/19/2024 Gume Salas Atherosclerosis of [place] artery of both lower extremities, with unspecified presence of clinical manifestation I70.203 ; Tinea unguium B35.1 ; Pain in right toe(s) M79.674 and Pain in left toe(s) M79.[address] [address] 11/10/2024 Gumeanupama Salas Atherosclerosis of [place] artery of both lower extremities, with unspecified presence of clinical manifestation I70.203 ; Tinea unguium B35.1 ; Pain in right toe(s) M79.674 ; Pain in left toe(s) M79.675 and Ingrown nail L60.0 [facility] [address] [address] 02/01/2025 Gume Salas Ingrown nail L60.[address] [address] 02/23/2025 Gume Salas Atherosclerosis of [place] artery of both lower extremities, with unspecified presence of clinical manifestation I70.203 ; Tinea unguium B35.1 ; Pain in right toe(s) M79.674 ; Pain in left toe(s) M79.675 and Skin ulcer of toe of right foot with fat layer exposed L97.[address] [address] 08/16/2024 Gume Salas [address] [address] 02/01/2025 Gume Salas Assessments Encounter Date Diagnosis (ICD Code) Assessment Notes Treatment Notes Treatment Clinical Notes Section Notes 05/19/2024 Tinea unguium (ICD-10 - B35.1) 05/19/2024 Atherosclerosis of [place] artery of both lower extremities, with unspecified presence of clinical manifestation (ICD-10 - I70.203) 11/10/2024 Tinea unguium (ICD-10 - B35.1) 11/10/2024 Atherosclerosis of [place] artery of both lower extremities, with unspecified presence of clinical manifestation (ICD-10 - I70.203) 02/01/2025 Ingrown nail (ICD-10 - L60.0) 02/23/2025 Tinea unguium (ICD-10 - B35.1) 02/23/2025 Atherosclerosis of [place] artery of both lower extremities, with unspecified presence of clinical manifestation (ICD-10 - I70.203) 11/10/2024 Pain in right toe(s) (ICD-10 - M79.674) 05/19/2024 Pain in right toe(s) (ICD-10 - M79.674) 02/23/2025 Pain in right toe(s) (ICD-10 - M79.674) 02/23/2025 Pain in left toe(s) (ICD-10 - M79.675) 11/10/2024 Pain in left toe(s) (ICD-10 - M79.675) 05/19/2024 Pain in left toe(s) (ICD-10 - M79.675) 11/10/2024 Ingrown nail (ICD-10 - L60.0) 02/23/2025 Skin ulcer of toe of right foot with fat layer exposed (ICD-10 - L97.512) Patient Educated with: WOUND CARE INSTRUCTIONS. pdf (WOUND CARE INSTRUCTIONS. pdf) 05/19/2024 Other 11/10/2024 Other 02/23/2025 Other Plan Of Treatment Pending Test Test Name Order Date 50028-RINBCDD NAIL, 6 OR MORE 03/27/2011 38382-IMVOGTS NAIL, 6 OR MORE 06/12/2011 01771-IOITYDH NAIL, 6 OR MORE 09/11/2011 33240-WVTLTRA NAIL, 6 OR MORE 12/18/2011 61277-YGTBDJW NAIL, 6 OR MORE 03/18/2012 50769-POFQNTL NAIL, 6 OR MORE 06/17/2012 43217-GIHOYXM NAIL, 6 OR MORE 09/02/2012 76280-CNGULNK NAIL, 6 OR MORE 11/11/2012 71991-CKSBFJW NAIL, 6 OR MORE 02/10/2013 43023-EVWJBNO NAIL, 6 OR MORE 05/19/2013 60070-DXRKOKX NAIL, 6 OR MORE 08/18/2013 17239-KZUUGBM NAIL, 6 OR MORE 11/10/2013 54739-JIMCLZF NAIL, 6 OR MORE 02/16/2014 56699-RJKPXHT NAIL, 6 OR MORE 05/18/2014 11568-YLJTWLH NAIL, 6 OR MORE 08/17/2014 64581-RQFGYSF NAIL, 6 OR MORE 11/16/2014 87758-ZTWJPBG NAIL, 6 OR MORE 02/15/2015 96474-YTJSCWZ NAIL, 6 OR MORE 05/10/2015 48526-CIDCKDW NAIL, 6 OR MORE 08/09/2015 49769-SHVXVSO NAIL, 6 OR MORE 11/07/2015 55091-XUAKVIK NAIL, 6 OR MORE 02/06/2016 43206-KNCUFLE NAIL, 6 OR MORE 05/07/2016 01516-RBABDQA NAIL, 6 OR MORE 08/06/2016 42279-RASJGJC NAIL, 6 OR MORE 11/05/2016 66396-DQNVDKJ NAIL, 6 OR MORE 02/04/2017 12318-IQQAGLZ NAIL, 6 OR MORE 05/06/2017 80036-SLEKBHV NAIL, 6 OR MORE 08/06/2017 25649-XRPTVYS NAIL, 6 OR MORE 11/09/2017 03388-PUETNBE NAIL, 6 OR MORE 02/08/2018 33219-VZYYEIX NAIL, 6 OR MORE 05/10/2018 56793-MMFJGNL NAIL, 6 OR MORE 08/11/2018 87781-HCPXMPR NAIL, 6 OR MORE 11/11/2018 17567-BYSYAYG NAIL, 6 OR MORE 02/10/2019 27856-WMGESBM NAIL, 6 OR MORE 05/19/2019 06216-IVDNWAA NAIL, 6 OR MORE 10/03/2019 64566-PJUOTPF NAIL, 6 OR MORE 01/02/2020 04597-UXSVIUF NAIL, 6 OR MORE 03/29/2020 74649-XRMEXQX NAIL, 6 OR MORE 07/09/2020 81992-HSDSUAA NAIL, 6 OR MORE 10/08/2020 74863-MXXAIGV NAIL, 6 OR MORE 01/10/2021 04598-DVJCOGQ NAIL, 6 OR MORE 04/10/2021 69947-LAMEGRO NAIL, 6 OR MORE 07/11/2021 29578-OPOAKIC NAIL, 6 OR MORE 10/14/2021 78572-SBLIOYP NAIL, 6 OR MORE 01/15/2022 70651-FSCECMF NAIL, 6 OR MORE 04/23/2022 22540-JNOBKYE NAIL, 6 OR MORE 09/03/2022 31191-QRAWVXB NAIL, 6 OR MORE 11/17/2022 69776-EHWBPKZ NAIL, 6 OR MORE 02/16/2023 58293-LNOWVDV NAIL, 6 OR MORE 05/18/2023 62239-LJSDOKZ NAIL, 6 OR MORE 08/17/2023 71564-RLRBDMG NAIL, 6 OR MORE 11/16/2023 61105-DNGJVCX NAIL, 6 OR MORE 02/15/2024 93026-PQXPQEE NAIL, 6 OR MORE 05/19/2024 31860-URXBRAK NAIL, 6 OR MORE 11/10/2024 15182-AIUGOZF NAIL, 6 OR MORE 02/23/2025 71514-Mhyb Destruction, -02/15/2015 33316-Fojz Destruction, 07-1911/16/2014 58046-Lmjv Destruction, 07-1908/17/2014 16695-Wvix Destruction, 07-1906/12/2011 13388-Mxmz Destruction, 07-1905/18/2014 06822-Dyxy Destruction, 07-1906/17/2012 02021-Qgvy Destruction, 07-1903/18/2012 24430-Ywqe Destruction, 07-1912/18/2011 54998-Gdlc Destruction, 07-1909/11/2011 09145-Hzxw Destruction, 07-1903/27/2011 80627-Ebilafhh Plate 06/12/2011 50463-Mcdmpfcg Plate 09/11/2011 93792-Qgweizye Plate 12/18/2011 68056-Szcilhgu Plate 03/18/2012 39093-Roejvapw Plate 06/17/2012 21502-Kyyvwwgw Plate 05/18/2014 33535-Auwspqvy Plate 02/16/2014 85344-Ssfozral Plate 11/10/2013 68601-Rjrteeng Plate 08/18/2013 31829-Gycfloik Plate 05/19/2013 97571-Uqfmryap Plate 02/10/2013 49290-Ztimvlru Plate 11/11/2012 18815-Gpmxisez Plate 08/17/2014 49505-Itcjhsqk Plate 11/16/2014 05431-Dfkcubqc Plate 02/15/2015 69950-Esmyciyg Plate 08/09/2015 61924-Ppsqaztz Plate 05/10/2015 39913-Pqzsgrou Plate 11/11/2018 17334-Ctertkck Plate 08/11/2018 04753-Senoangl Plate 05/10/2018 00699-Kzgzrjqj Plate 08/06/2017 16597-Nxdkzcsk Plate 11/17/2022 52893-Aeijrinn Plate 09/03/2022 92774-Ysssjlgl Plate 04/23/2022 81616-Coothelv Plate 01/15/2022 76907-Iippcyzm Plate 10/14/2021 55490-Qkhtsrjl Plate 07/11/2021 47683-Cisqgrow Plate 04/10/2021 18304-Xluauhjd Plate 01/10/2021 30469-Esinslyz Plate 10/08/2020 87316-Dboomcdl Plate 07/09/2020 60405-Xbnatskx Plate 03/29/2020 56078-Eqftullb Plate 01/02/2020 42272-Qkwdgyci Plate 10/03/2019 29759-Heirxjrj Plate 05/19/2019 32491-Dvjobcdl Plate 02/10/2019 19297-Iakfxycy Plate Each Additional 72812-Gzsdcwlz Plate Each Additional 10/2020 02580-Wbcptrup Plate Each Additional 11/2020 32289-Bzbpzzqk Plate Each Additional 02/2021 85364-Xsbjweyh Plate Each Additional 11/2014 59491-Jkjhybjt Plate Each Additional 10/2015 72833-Toauegqm Plate Each Additional 22302-Meovxkwd Plate Each Additional 75447-Vdhggrfz Plate Each Additional 06/2015 38699-Uxquzngq Plate Each Additional 45217-Ndqfiagg Plate Each Additional 02/2014 27577-Ddonphca Plate Each Additional 37897-Lcfipmwj Plate Each Additional 81681-Mhorqfsu Plate Each Additional 38468-Owlhcvzp Plate Each Additional 02/2012 15177-EYY 01/24/2021 17692-VTS 02/01/2025 00979- Debride <25 sq cm 10/08/2020 07571-JKXHYTX SKIN/TISSUE 02/07/2021 35427-KXGCRUG SKIN/TISSUE 02/23/2025 50357 I&D ABSCESS- SIMPLE,SINGLE 024 50595 I&D ABSCESS- SIMPLE,SINGLE 011 39907-WHWU SKIN LESIONS, 2 TO 4 02/24/20 25 27422-OEIG SKIN LESIONS, 2 TO 4 11/18/19 23 04982-VGGW SKIN LESIONS, 2 TO 4 02/17/20 23 81457-CYWG SKIN LESIONS, 2 TO 4 08/17/19 24 52311-UIFS SKIN LESIONS, 2 TO 4 05/18/20 23 48735-SPWY SKIN LESIONS, 2 TO 4 11/11/19 25 50916-FOKH SKIN LESIONS, 2 TO 4 05/19/20 24 11478-AAGA SKIN LESIONS, 2 TO 4 02/15/20 24 88343-EUHV SKIN LESIONS, 2 TO 4 11/16/19 24 93108-UJSM SKIN LESIONS, 2 TO 4 09/04/19 23 03602-Xhul. Subungual Hematoma 3 Next Appt Details Provider Name:Gume Salas , 06/08/2025 08:45:00 AM, [address] [facility], [address], [place], [address], Insurance Providers Payer Name Payer Address Payer Phone Subscriber Number Group Number Insured Name Patient Relationship to Insured Coverage Start Date Coverage End Date Medicare [facility] [employer] [address] [place] [address] [id number] Telly Silverman Self - patient is the insured 6 [employer] Blue [employer] [address] [place] [address] [id number] Telly Silverman Self - patient is the [...]
== END 2025-05-02 10:06 | disposition home or self-care (01) ==
LOC: HO.HMCH 09:07
PROVIDERS: PCP Internal Medicine
DX: I10 Essential (primary) hypertension (principal); I25.10 Atherosclerotic heart disease of native coronary artery without angina pectoris; I77.810 Thoracic aortic ectasia; E78.5 Hyperlipidemia, unspecified; K22.719 Barrett's esophagus with dysplasia, unspecified; R35.1 Nocturia; K21.9 Gastro-esophageal reflux disease without esophagitis; D64.9 Anemia, unspecified; R73.01 Impaired fasting glucose

== ENCOUNTER → 2025-05-02 09:06 | Outpatient (BNVA) | payer MEDICARE, SELFPAY | PROVIDERS: PCP Internal Medicine | DX: I10 Essential (primary) hypertension (principal); I25.10 Atherosclerotic heart disease of native coronary artery without angina pectoris; I77.810 Thoracic aortic ectasia; E78.5 Hyperlipidemia, unspecified; K22.719 Barrett's esophagus with dysplasia, unspecified; R35.1 Nocturia; K21.9 Gastro-esophageal reflux disease without esophagitis; D64.9 Anemia, unspecified; R73.01 Impaired fasting glucose | CPT/HCPCS: 99212 ==

== ENCOUNTER 2025-05-11 10:42 | Outpatient (AMB) | payer MEDICARE, SELFPAY ==
--- OUTSIDE RECORDS SUMMARY | 2024-08-18 09:00 | XMS_ITS ---
Author Organization [facility] Address [address] [place] [address] Care Team Providers Care Content Checker Name Role Phone Eusebio Farias Primary Care Provider Unavailabl Gume Suarez Unavailable [phone] Encounters Encounter Location Date Provider Diagnosis [address] [address] 08/18/2024 Gume Salas Plan Of Treatment Next Appt Details Provider Name:Gume Salas , 06/08/2025 08:45:00 AM, [facility] [address], [place], [address], Progress Notes * Telly SILVERMAN WDOB: 0 (74 yo M)Acc No.[id number]:08/18/2024 Progress Note Patient: Telly BLANCO Provider: Morteza Salas DPM :1950 A ge:73 Y S ex:Male Date:08/18/2024 Address:[address] [place] [id number] Pcp:Eusebio Farias Subjective: * Chief Complaints: * * Medical History: Objective: * Vitals: Assessment: Plan: * Treatment: * Images: * The named appointment provid er may or may not be the originator of this progress note, and it is not deemed complete until electronically signed by the appointment provider. Sign off status: Pending * Provider: Morteza Salas DPM Date: 0 08/18/2024 Generated for Savannah thomas/Paige/Gricelda on: 1 07/11/2024 12:57 PM EST
--- OUTSIDE RECORDS SUMMARY | 2025-02-15 03:30 | XMS_ITS ---
Author Organization [facility] Address [address] [facility] [place] [address] Care Team Providers Care Bagger Meat Name Role Phone Eusebio Farias Primary Care Provider Unavailabl Gume Suarez Unavailable [phone] Schwartz Encounters Encounter Location Date Provider Diagnosis [address] [address] 02/15/2025 Gume Salas Plan Of Treatment Next Appt Details Provider Name:Gume Salas , 06/08/2025 08:45:00 AM, [address] [place] [address], [phone], Progress Notes * Telly SILVERMAN WDOB: 0 (74 yo M)Acc No.[id number]:02/15/2025 Progress Notes Patient: Telly BLANCO Provider: Morteza Salas DPM :1950 A ge:74 Y S ex:Male Date:02/15/2025 Address:[address] [place] [id number] Pcp:Eusebio Farias Subjective: * Chief Complaints: * [address] Schwartz[address] * Medical History: Objective: * Vitals: Assessment: Plan: * Treatment: * Images: * The named appointment provid er may or may not be the originator of this progress note, and it is not deemed complete until electronically signed by the appointment provider. Sign off status: Pending * Provider: Morteza Salas DPM Date: 0 02/15/2025 Generated for Savannah thomas/Job on: 1 07/11/2024 12:57 PM EST
--- OUTSIDE RECORDS SUMMARY | 2025-05-09 13:00 | XMS_ITS | Encounter Summary ---
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); Gastroesophageal reflux disease without esophagitis; Colon cancer screening Social History Tobacco Use Types Packs/Day Years Used Date Smoking Tobacco: Never Smokeless Tobacco: Never Alcohol Use Standard Drinks/Week Comments No 0 (1 standard drink = 0.6 oz pur e alcohol) Sex and Gender Information Value Date Recorded Sex Assigned at Not on file Legal Sex Male 10:22 PM EST Gender Identity Not on file Sexual Orientation Not on file documented as of this encounter Last Filed Vital Signs Vital Sign Reading Time Taken Comments Blood Pressure - - Pulse - - Temperature - - Respiratory Rate - - Oxygen Saturation - - Inhaled Oxygen Concentration - - Weight 93 kg (205 lb) 05/09/2025 12:47 PM EST Height 185.4 cm (6' 1 ) 05/09/2025 12:47 PM EST Body Mass Index 27.05 05/09/2025 12:47 PM EST documented in this encounter Progress Notes * Panfilo Khan MD - 05/09/2025 1:00 PM ESTAssociated Problem(s): GERD (gastroesophageal reflux disease) 74-year-old gentleman with longstanding history of acid reflux disease presenting for evaluation. Currently has been on omeprazole for many years and is doing well as noted above. He is aware he doeshave Koroma's esophagus and understands the risks of esophageal cancer related to this. We did discuss the pros and cons of PPI therapy, particular in the setting of Koroma's esophagus. We discussed lifestyle issues as well as diet. 1. Continue omeprazole 10 mg p.o. daily. 2. Appropriate handouts regarding diet and lifestyle issues reviewed. * Panfilo Khan MD - 05/09/2025 1:00 PM ESTAssociated Problem(s): Koroma esophagus Reviewed Koroma's esophagus. Issues as above. 1. Continue omeprazole 10 mg daily. 2. Have reviewed the pros, cons, risks and benefits plan for gastroscopy. We did review the risks of bleeding, infection, perforation, missed diagnosis, failed procedure, surgery, etc. 3. Further recommendations based on endoscopic evaluation. * Panfilo Khan MD - 05/09/2025 1:00 PM EST CONSULT REQUEST CHIEF COMPLAINT: Colonoscopy and Endoscopy HPI: Telly Silverman is a 74 y.o. old male who was referred to us by WILLIE Angel presents to the gastroenterology department today for evaluation of GERD, Koroma's esophagus and colon cancer screening. The patient states he has been doing well in terms of his heartburn to the use of omeprazole. He does know he is overdue for endoscopic surveillance of his Koroma's esophagus. On therapy he denies dyspepsia, dysphagia, odynophagia, nausea or vomiting. There is no jose m abdominal pain. He reports his bowels are good. There is no diarrhea, constipation or blood in the stool. He denies any change in weight or appetite. He denies any side effects from his omeprazole. ROS: GENERAL: No malaise, significant weight loss or fever HEENT: No changes in hearing or vision, nose bleeds or swallowing problems NECK: No lumps, goiter, pain or significant neck swelling RESPIRATORY: No cough, wheezing or shortness of breath CARDIOVASCULAR: No chest pain, leg swelling or palpitations GI: As above MUSCULOSKELETAL: No joint pain or swelling, back pain, or muscle pain. SKIN: No lesions, rash or itching The remainder of the review of systems is reviewed and negative. PAST MEDICAL HISTORY: Medical History[1] PAST SURGICAL HISTORY: Surgical History[2] SOCIAL HISTORY: Social History Socioeconomic History Marital status: Spouse name: Not on file Number of children: Not on file Years of education: Not on file Highest education level: Not on file Occupational History Not on file Tobacco Use Smoking status: Never Smokeless tobacco: Never Substance and Sexual Activity Alcohol use: No Drug use: No Sexual activity: Not on file Other Topics Concern Not on file Social History Narrative Not on file FAMILY HISTORY: Family History[3] MEDICATIONS: Current Medications[4] ALLERGIES: Current Allergies[5] PHYSICAL EXAM: Visit Vitals Ht 1.854 m (73 ) Wt 93 kg (205 lb) BMI 27.05 kg/m?? Smoking Status Never BSA 2.17 m?? APPEARANCE: Alert and in no acute distress EYES: PERRLA, conjunctiva and sclera normal. MOUTH/THROAT: No erythema, exudates or lesions noted NECK: Neck supple, no adenopathy HEART: RRR with normal S1 and S2, no murmurs appreciated LUNG: clear to auscultation LYMPH NODES: grossly normal ABDOMEN: soft non tender, no ascites, guarding, or rebound, no organomegaly. RECTAL: Exam deferred EXTREMITIES: Extremities warm and well perfused NEURO: Awake, alert and oriented x 3, SKIN: Skin color, texture, turgor normal. LABS: No immediate results to review. IMAGING: No results found. Assessment & Plan Gastroesophageal reflux disease without esophagitis 74-year-old gentleman with longstanding history of acid reflux disease presenting for evaluation. Currently has been on omeprazole for many years and is doing well as noted above. He is aware he doeshave Koroma's esophagus and understands the risks of esophageal cancer related to this. We did discuss the pros and cons of PPI therapy, particular in the setting of Koroma's esophagus. We discussed lifestyle issues as well as diet. 1. Continue omeprazole 10 mg p.o. daily. 2. Appropriate handouts regarding diet and lifestyle issues reviewed. Koroma's esophagus without dysplasia Reviewed Koroma's esophagus. Issues as above. 1. Continue omeprazole 10 mg daily. 2. Have reviewed the pros, cons, risks and benefits plan for gastroscopy. We did review the risks of bleeding, infection, perforation, missed diagnosis, failed procedure, surgery, etc. 3. Further recommendations based on endoscopic evaluation. Colon cancer screening Reviewed patient's last colonoscopy as well as gastroscopy for above. Discussed the role of colon cancer screening and the fact he is due for evaluation. 1. Plan for colonoscopy in same setting as gastroscopy. Did review again pros, cons, risks and benefits. 2. Further recommendations based on colonoscopy findings. I would like to thank WILLIE Angel for the opportunity to partake in the patient's care. Board Certified Gastroenterology [facility] [phone] [place] [address] [email or web address] Panfilo Khan MD 1:01 PM EST [1] Past Medical History: Diagnosis Date Koroma esophagus GERD (gastroesophageal reflux disease) HTN (hypertension) Hyperlipemia [2] Past Surgical History: Procedure Laterality Date COLONOSCOPY 10/2014 GASTROSCOPY 10/2014 [3] Family History Problem Relation Name Age of Onset Gynecologic malignancy (CMS/HCC V24, CMS/HCC V28) Sister [4] Current Outpatient Medications Medication Sig Dispense Refill amLODIPine (NORVASC) 5 mg tablet Take 1 tablet (5 mg total) by mouth 1 (one) time each day. aspirin 81 mg EC tablet Take 1 tablet (81 mg total) by mouth 1 (one) time each day. atorvastatin (LIPITOR) 80 mg tablet Take 1 tablet (80 mg total) by mouth 1 (one) time each day. ezetimibe (ZETIA) 10 mg tablet Take 1 tablet (10 mg total) by mouth 1 (one) time each day. finasteride (PROSCAR) 5 mg tablet Take 1 tablet (5 mg total) by mouth every other day. losartan-hydroCHLOROthiazide (HYZAAR) 100-25 mg per tablet Take 1 tablet by mouth 1 (one) time eachday. omeprazole (PriLOSEC) [address] capsule Take 1 capsule (10 mg total) by mouth 1 (one) time each day. tamsulosin (FLOMAX) 0.4 mg 24 hr capsule Take 1 capsule (0.4 mg total) by mouth 1 (one) time each day. at bedtime timolol (TIMOPTIC) 0.5 % ophthalmic solution Administer 1 drop into both eyes 2 (two) times a day. No current facility-administered medications for this visit. [5] No Known Allergies documented in this encounter Plan of Treatment Upcoming Encounters Date Type Department Care Team (Late st Contact Info) Description 05/16/2025 10:30 AM EST Hospital Encounter [facility] Endoscopy [address] [place] [address] Panfilo Khan MD [address] [address] documented as of this encounter Goals Goal Patient Goal Type Associated Problems Recent Progress Patient-Stated? Author Autogenerat ed Goal Care Plan Autogenerated Problem No Portia Martinez documented as of this encounter Visit Diagnoses Diagnosis Koroma's esophagus without dysplasia- Primary Gastroesophageal reflux disease without esophagitis Esophageal reflux Colon cancer screening Special screening for malignant neoplasms, colon documented in this encounter Historical Medications * This list may reflect changes made after this encounter. aspirin 81 mg EC tablet Take 1 tablet (81 mg total) by mouth 1 (one) time each day. timolol (TIMOPTIC) 0.5 % ophthalmic solution Administer 1 drop into both eyes 2 (two) times a day. 03/22/2025 finasteride (PROSCAR) 5 mg tablet Take 1 tablet (5 mg total) by mouth every other day. 09/28/2024 tamsulosin (FLOMAX) 0.4 mg 24 hr capsule Take 1 capsule (0.4 mg total) by mouth 1 (one) time each day. at bedtime 02/22/2025 omeprazole (PriLOSEC) [address] capsule Take 1 capsule (10 mg total) by mouth 1 (one) time each day. losartan-hydroCH LOROthiazide (HYZAAR) 100-25 mg per tablet Take 1 tablet by mouth 1 (one) time each day. 03/27/2025 ezetimibe (ZETIA) 10 mg tablet Take 1 tablet (10 mg total) by mouth 1 (one) time each day. atorvastatin (LIPITOR) 80 mg tablet Take 1 tablet (80 mg total) by mouth 1 (one) time each day. amLODIPine (NORVASC) 5 mg tablet Take 1 tablet (5 mg total) by mouth 1 (one) time each day. 03/03/2025 added in this encounter Additional Health Concerns Active Problems Noted Date Diagnosed Date Autogenerated Problem 05/09/2025 documented as of this encounter Care Teams Molded Frames Assembler Relationship Specialty Start Date End Date Eusebio Farias FNP [address] [place] [address] PCP - General Family Medicine 02/03/25 documented as of this encounter
--- NOTE | 2025-05-11 10:48 | MHC.OFFVIS ---
Intake Visit Reasons: 1y/PSA/PVR Intake Note: Patient is present for 1Y/PSA/PVR Urology Medication:FINASTERIDE,TAMSULSOIN Antibiotic Allergy:NONE Blood Thinner:ASPIRIN Last PVR:21ML'S Todays PVR:0ML'S Allergies No Known Allergies Allergy (Verified 05/11/25 11:26) Medication List - Last Reconciled 05/11/25 by KAVITA Hoang amlodipine 5 mg PO DAILY aspirin (Adult Low Dose Aspirin) 81 mg PO DAILY atorvastatin 80 mg PO DAILY ezetimibe 10 mg PO DAILY finasteride 5 mg PO DAILY 90 days losartan-hydrochlorothiazide 100-25 mg 1 tab PO DAILY omeprazole 10 mg PO DAILY tamsulosin (Flomax) 0.4 mg PO BEDTIME 90 days timolol 0.5% 1 drp ophthalmic (eye) ONCE HPI Comments Details: Telly is a very pleasant 74-year-old male patient of Dr. Mccann. He has a past medical history of ACD, hypertension, and hyperlipidemia. He presents to the office today for follow-up of his lower urinary tract symptoms. In discussion with the patient today reports to be doing and feeling well. He denies having had any bothersome urinary issues or concerns since his last office visit here over a year ago. He reports compliance with Flomax and finasteride as prescribed. In office urinalysis results reviewed with the patient today. PVR 0 mL. Recent PSA results reviewed with the patient today. As noted and trended below. He denies urinary urgency, urinary frequency, incontinence, nocturia, hematuria, dysuria, foul smelling urine, changes to urinary stream, flank pain, fever, and or chills. He is happy with his current voiding parameters. He otherwise offers no other issues or concerns at this time. PSA 03/26 3.4, 02/25 1.7, 09/26 1.8, 04/29 2.0 [facility] Medical History GERD (gastroesophageal reflux disease) Screening for diabetes mellitus Urinary hesitancy Urinary urgency Other and unspecified hyperlipidemia Atherosclerotic cardiovascular disease Hypertension Surgical History History of discectomy H/O endoscopy History of colonoscopy History of eye surgery History of colonoscopy History of lumbar surgery History of cholecystectomy Family History Father No problems noted. Mother No problems noted. Sister No problems noted. Social History Housing: House Alcohol intake: never Patient Tobacco Use Status: Former Tobacco user Tobacco use type: Cigarette e-Cigarette/Vaping Use: Never Used Second Hand Smoke Exposure: Yes service: No Current occupational status: retired Current occupational exposures/hazards: No Cognitive needs: No Hearing needs: No Vision needs: Yes (glasses) Review of Systems Const All systems reviewed & are unremarkable except as noted in HPI and below Physical Exam Const General: cooperative, healthy appearing, comfortable, no acute distress, well developed, alert and awake Orientation/consciousness: patient oriented x3 Limitations: no limitations HEENT Head: Yes normal to inspection, Yes normocephalic and Yes atraumatic Ears: hearing grossly normal bilaterally Eyes General: appearance normal, both eyes and all related structures Neck Neck: Yes normal visual inspection and Yes trachea midline Chest Chest palpation & inspection: normal inspection of the chest Resp Effort & Inspection: normal respiratory effort and able to speak in complete sentences Cardio Rate: regular rate GI Inspection: Yes normal to inspection General: Yes no CVA tenderness Back/Spine/Pelvis Back: no CVA tenderness Skin General skin exam: no rashes or lesions noted Neuro General: patient oriented x3 Extrem General: Yes normal to inspection Psych Appearance: grossly normal and well kempt Mental Status: mental status grossly normal Speech and movement: Normal speech and movement present and Clear speech present Affect: normal affect Attitude: cooperative Thought process: Normal thought process present Thought content: Normal thought content present Insight: Fair insight present (Psych) Judgement: Fair judgement present (Psych) Office Procedures Post Void Residual Post Residual Void Post Void Residual (PVR): 0 [id number] Void Residual by ultrasound Results AMB Urinalysis, Automated UA Leukoctes 0 Carter/uL Last Edit by SUBHA Walton on 05/11/25 11:02 UA Nitrite Negative Last Edit by SUBHA Walton on 05/11/25 11:02 UA Urobilinogen 0.2 mg/dL Last Edit by SUBHA Walton on 05/11/25 11:02 UA Protein 30 mg/dL Last Edit by SUBHA Walton on 05/11/25 11:02 UA pH 6.0 Last Edit by SUBHA Walton on 05/11/25 11:02 UA Blood 0 Jorge/uL Last Edit by Demetria David CCM on 05/11/25 11:02 UA Specific [place] 1.015 Last Edit by SUBHA Walton on 05/11/25 11:02 UA Ketone Negative Last Edit by Demetria David [facility] on 05/11/25 11:02 UA Bilirubin 0 mg/dL Last Edit by Demetria David [facility] on 05/11/25 11:02 UA Glucose 0 mg/dL Last Edit by Demetria [facility] on 05/11/25 11:02 Results Reviewed Results Reviewed: Laboratory Last Values Urine pH (Auto) 6.0 05/11/25 10:56 Specific [place] (Auto) 1.015 05/11/25 10:56 Urine Protein (Auto) 30 mg/dL 05/11/25 10:56 Glucose (UA)(Auto) 0 mg/dL 05/11/25 10:56 Urine Ketones (Auto) Negative 05/11/25 10:56 Urine Blood (Auto) 0 Jorge/uL 05/11/25 10:56 Urine Nitrite (Auto) Negative 05/11/25 10:56 Urine Bilirubin (Auto) 0 mg/dL 05/11/25 10:56 Urine Urobilinogen (Auto) 0.2 mg/dL 05/11/25 10:56 Leukocyte Esterase (Auto) 0 Carter/uL 05/11/25 10:56 Assessment & Plan Assessment & Plan (1) Nocturia more than twice per night: Code(s): R35.1 - Nocturia Category: Medical (2) Bladder outlet obstruction: Code(s): N32.0 - Bladder-neck obstruction Category: Medical (3) Urinary hesitancy: Code(s): R39.11 - Hesitancy of micturition Category: Medical Plan In office urinalysis results reviewed with the patient today; as noted above. PVR 0 mL. Recent PSA results reviewed with the patient today; as noted above. Patient currently denies any bothersome urinary issues or concerns. He reports be happy with current voiding parameters. Continue Flomax and finasteride as prescribed. Will obtain PSA in 1 year. Follow-up in 1 year with PSA to be completed prior; or sooner with any issues, concerns, and or questions. Orders: Orders AMB Urinalysis Automated Today Z13.9 - Encounter for screening, unspecified Prostate Specific Antigen 1 Year N32.0 - Bladder-neck obstruction, R35.1 - Nocturia, R39.11 - Hesitancy of micturition Patient Instructions: The patient had an opportunity to ask questions regarding the treatment plan. All questions were answered. Physical exam, labs, and imaging were discussed and reviewed in detail. As well as risks, benefits, and discussion of treatment choices. No major barriers to understanding were identified. The patient expressed understanding and agreement with the above treatment plan. The patient was made aware they should contact our office by phone for worsening of their current condition, the appearance of new symptoms, or with any questions or concerns. Compliance is encouraged with any medications and follow up testing that is ordered. It is a privilege to be allowed the opportunity to participate in? your urological care.? Again, if you have any questions or concerns If you have any questions or concerns please do not hesitate to contact me. The office is [phone]. This note is constructed using voice recognition software. While every effort has been made to ensure accuracy burling and joining supervisor errors may have been included. Yours sincerely, KAVITA Hoang Coding Level of Care Code Est Pt Level 3 (10752) Diagnoses Nocturia more than twice per night R35.1 Bladder outlet obstruction N32.0 Urinary hesitancy R39.11 CPT Codes Post Residual Void - PVR CPT Code: 55593-Fcru Void Residual by ultrasound ([id number])
--- OUTSIDE RECORDS SUMMARY | 2025-05-11 12:57 | XMS_ITS | Encounter Summary ---
Author Organization [facility] Address [address] [place] [address] Care Team Providers Care Certified Recreational Therapist Name Role Phone Eusebio Farias WILLIE Primary Care Provider [phone] Reason for Visit * Reason Onset Date Comments special procedure 05/09/2025 Encounter Details Date Type Department Care Team (Late st Contact Info) Description 05/09/2025 Telephone Gastroenterology - [address] [place] [address] Barbi Pereira MA Social History Tobacco Use Types Packs/Day Years [...] on file documented as of this encounter Progress Notes * Judy Demarco - 05/10/2025 2:22 PM EST PENDED TO PROVIDER * Alina Pozo - 05/10/2025 1:11 PM EST Pt is calling requesting for his prep to be sent to the [facility] pharmacy in [place]. * Barbi Pereira MA - 05/09/2025 2:17 PM EST Scheduled. * Barbi Pereira MA - 05/09/2025 2:17 PM EST ----- Message from Patrice Khan MD sent at 05/09/2025 12:57 PM EST ----- Colon for screening for cancer [place] for Barretts Please book documented in this encounter Plan of Treatment Upcoming Encounters Date Type Department Care Team (Late st Contact Info) Description 05/16/2025 10:30 AM EST Hospital Encounter [facility] Endoscopy [address] [place] [phone] Panfilo Khan MD [address] [address] documented as of this encounter Goals Goal Patient Goal Type Associated Problems Recent Progress Patient-Stated? Author Autogenerat ed Goal Care Plan Autogenerated Problem No Portia Martinez documented as of this encounter Visit Diagnoses Not on filedocumented in this encounter Additional Health Concerns Active Problems Noted Date Diagnosed Date Autogenerated Problem 05/09/2025 documented as of this encounter Care Teams Certified Recreational Therapist Relationship Specialty Start Date End Date Eusebio Farias FNP [address] [place] [address] PCP - General Family Medicine 02/03/25 documented as of this encounter
--- OUTSIDE RECORDS SUMMARY | 2025-05-11 12:57 | XMS_ITS | Clinical Summary ---
Author Organization [facility] Address [address] [place] [address] Phone Care Team Providers Care Coal Unloader Name Role Phone Eusebio Farias WILLIE Primary Care Provider [phone] Allergies No known active allergies Medications amLODIPine (NORVASC) 5 mg tablet Take 1 tablet (5 mg total) by mouth 1 (one) time each day. 5 Active atorvastatin (LIPITOR) 80 mg tablet Take 1 tablet (80 mg total) by mouth 1 (one) time each day. Active ezetimibe (ZETIA) 10 mg tablet Take 1 tablet (10 mg total) by mouth 1 (one) time each day. Active losartan-hydroC HLOROthiazide (HYZAAR) 100-25 mg per tablet Take 1 tablet by mouth 1 (one) time each day. 5 Active omeprazole (PriLOSEC) [address] capsule Take 1 capsule (10 mg total) by mouth 1 (one) time each day. Active tamsulosin (FLOMAX) 0.4 mg 24 hr capsule Take 1 capsule (0.4 mg total) by mouth 1 (one) time each day. at bedtime 5 Active finasteride (PROSCAR) 5 mg tablet Take 1 tablet (5 mg total) by mouth every other day. 5 Active timolol (TIMOPTIC) 0.5 % ophthalmic solution Administer 1 drop into both eyes 2 (two) times a day. 5 Active aspirin 81 mg EC tablet Take 1 tablet (81 mg total) by mouth 1 (one) time each day. Active polyethylene glycol (Golytely) 236-22.74-6.74 -5.86 gram solution Take 4L by mouth once for one dose. May substitue any PEG. Starting at 2PM the day before your procedure drink 1 8oz glasses at your own pace until you complete half of the gallon. Finish 2nd half of the gallon at 8PM. 4000 mL 5 Active bisacodyL (DULCOLAX) 5 mg EC tablet Take 2 tablets by mouth right before beginning bowel prep. See instructions provided by the office 2 tablet 5 Active Active Problems Problem Noted Date Diagnosed Date Koroma esophagus Assessment & Plan (05/09/2025 1:05 PM EST): Reviewed Koroma's esophagus. Issues as above. 1. Continue omeprazole 10 mg daily. 2. Have reviewed the pros, cons, risks and benefits plan for gastroscopy. We did review the risks of bleeding, infection, perforation, missed diagnosis, failed procedure, surgery, etc. 3. Further recommendations based on endoscopic evaluation. GERD (gastroesophageal reflux disease) Assessment & Plan (05/09/2025 1:05 PM EST): 74-year-old gentleman with longstanding history of acid reflux disease presenting for evaluation. Currently has been on omeprazole for many years and is doing well as noted above. 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 We did discuss the pros and cons of PPI therapy, particular in the setting of Koroma's esophagus. We discussed lifestyle issues as well as diet. 1. Continue omeprazole 10 mg p.o. daily. 2. Appropriate handouts regarding diet and lifestyle issues reviewed. 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); Gastroesophageal reflux disease without esophagitis; Colon cancer screening 05/09/2025 Telephone Gastroenterology - [address] [place] [phone] Barbi Pereira MA from Last 3 Months Surgical History Surgery Date Site/Laterality Comments COLONOSCOPY 10/04/2014 - 11/02/2014 GASTROSCOPY 10/04/2014 - 11/02/2014 Medical History Medical History Date Comments HTN (hypertension) Hyperlipemia GERD (gastroesophageal reflux disease) Koroma esophagus Family History Medical History Relation Name Comments Gynecologic malignancy (CMS/HCC V24, CMS/HCC V28) Sist er Relation Name Status Comments Sister Social History Tobacco Use Types Packs/Day Years Used Date Smoking Tobacco: Never Smokeless Tobacco: Never Alcohol Use Standard Drinks/Week Comments No 0 (1 standard drink = 0.6 oz pur e alcohol) Sex and Gender Information Value Date Recorded Sex Assigned at Not on file Legal Sex Male 10:22 PM EST Gender Identity Not on file Sexual Orientation Not on file Obstetrics History Last Filed Vital Signs Vital Sign Reading Time Taken Comments Blood Pressure - - Pulse - - Temperature - - Respiratory Rate - - Oxygen Saturation - - Inhaled Oxygen Concentration - - Weight 93 kg (205 lb) 05/09/2025 12:47 PM EST Height 185.4 cm (6' 1 ) 05/09/2025 12:47 PM EST Body Mass Index 27.05 05/09/2025 12:47 PM EST Plan of Treatment Upcoming Encounters Date Type Department Care Team (Late st Contact Info) Description 05/16/2025 10:30 AM EST Hospital Encounter [facility] Endoscopy [address] [place] [id number] Panfilo Khan MD [address] [address] Health Maintenance Due Date Last Done Comments Zoster Vaccines (2 of 3) 12/04/2016 10/09/2016 Depression Screening 07/06/2024 RSV Immunization Adult Patients (1 - 1-dose 75+ series) 2024 Colorectal Cancer Screening: Colonoscopy 10/26/2024 10/26/2014, 06/12/2005 Cholesterol Screening (Lipid Panel) 02/03/2025 Falls Risk Assessment 02/03/2025 Hepatitis C Screening 02/03/2025 Hypertension/CHF/CAD Annual BMP Blood Test 02/03/2025 Medicare Annual Wellness Visit 02/03/2025 Social Influencers of Health Screening 02/03/2025 COVID-19 Vaccine ( season) 2025 06/10/2021, 10/28/2020, 10/05/2020 DTaP,Tdap,and Td Vaccines (2 - Td or Tdap) 03/20/2033 03/20/2023 Influenza Vaccine Completed 04/13/2025, , 04/24/2023, Additional history exists Pneumococcal Vaccine: 50+ Years Completed 04/13/2025, 10/09/2016 HIB Vaccines Aged Out No longer eligi [...] to complete this topic RSV Immunization Patients Under 20 months Aged Out No longer eligible based on patient's age to complete this topic Varicella Vaccines Aged Out No longer eligible based on patient's age to complete this topic Goals Goal Patient Goal Type Associated Problems Recent Progress Patient-Stated? Author Autogenerat ed Goal Care Plan Autogenerated Problem No Portia Martinez Procedures Procedure Name Priority Date/Time Associated Diagnosis Comments EXTERNAL COLONOSCOPY REPORT Routine 10/26/2014 8:12 AM EDT from Last 3 Months or Most Recently Relevant to Health Maintenance Results * External Colonoscopy Report (10/26/2014 8:12 AM EDT) Anatomical Region Laterality Modality Endoscopy us Historical Provider GI~PROCEDURE ORDERABLES F inal Result from Last 3 Months or Most Recently Relevant to Health Maintenance Additional Health Concerns Active Problems Noted Date Diagnosed Date Autogenerated Problem 05/09/2025 Insurance MEDICARE BLUE [place] - [place] Care Teams Coal Unloader Relationship Specialty Start Date End Date Eusebio Farias FNP [address] [place] [phone] PCP - General Family Medicine 02/03/25
--- OUTSIDE RECORDS SUMMARY | 2025-05-11 12:57 | XMS_ITS | Patient Health Record ---
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, with unspecified [...] Ordered Date Performed Result Body Sit e 27819-RYLIZWA NAIL, 6 OR MORE 05/19/2024 N/A 83622-MSEC SKIN LESIONS, 2 TO 4 05/19/2024 N/A 47895-NBFBTLO NAIL, 6 OR MORE 11/10/2024 N/A 36657-VWOK SKIN LESIONS, 2 TO 4 11/10/2024 N/A 96845-BDX 02/01/2025 N/A 19255-WRGKFJT NAIL, 6 OR MORE 02/23/2025 N/A 03915-OUZITNL SKIN/TISSUE 02/23/2025 N/A 83495-XPIE SKIN LESIONS, 2 TO 4 02/23/2025 N/A Encounters [facility]counter [facility] [address] [facility]/19/2024 Gume Salas 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, with unspecified presence of clinical manifestation I70.203 ; Tinea unguium B35.1 ; Pain in right toe(s) M79.674 and Pain in left toe(s) M79.[address] [address] 11/10/2024 Gumeanupama Salas 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, with unspecified presence of clinical manifestation I70.203 ; Tinea unguium B35.1 ; Pain in right toe(s) M79.674 ; Pain in left toe(s) M79.675 and Ingrown nail L60.0 [facility] [address] [address] 02/01/2025 Gume Salas Ingrown nail L60.[address] [address] 02/23/2025 Gume Salas 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, with unspecified presence of clinical manifestation I70.203 ; Tinea unguium B35.1 ; Pain in right toe(s) M79.674 ; Pain in left toe(s) M79.675 and Skin ulcer of toe of right foot with fat layer exposed L97.[address] [address] 08/16/2024 Gume Salas [address] [address] 02/01/2025 Gume Salas Assessments Encounter Date Diagnosis (ICD Code) Assessment Notes Treatment Notes Treatment Clinical Notes Section Notes 05/19/2024 Tinea unguium (ICD-10 - B35.1) 05/19/2024 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, with unspecified presence of clinical manifestation (ICD-10 - I70.203) 11/10/2024 Tinea unguium (ICD-10 - B35.1) 11/10/2024 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, with unspecified presence of clinical manifestation (ICD-10 - I70.203) 02/01/2025 Ingrown nail (ICD-10 - L60.0) 02/23/2025 Tinea unguium (ICD-10 - B35.1) 02/23/2025 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, with unspecified [...] Treatment Pending Test Test Name Order Date 66216-REKRDTL NAIL, 6 OR MORE 03/27/2011 88939-QUMZFLO NAIL, 6 OR MORE 06/12/2011 05315-DPPHKJI NAIL, 6 OR MORE 09/11/2011 96950-CINKXYR NAIL, 6 OR MORE 12/18/2011 99690-EPEICIV NAIL, 6 OR MORE 03/18/2012 22414-BQJAKFO NAIL, 6 OR MORE 06/17/2012 59458-OQMJGJL NAIL, 6 OR MORE 09/02/2012 51788-QJMELMN NAIL, 6 OR MORE 11/11/2012 47563-JKAGQXT NAIL, 6 OR MORE 02/10/2013 29758-AEIVIMJ NAIL, 6 OR MORE 05/19/2013 33374-FSSTWZL NAIL, 6 OR MORE 08/18/2013 90328-GJOCNNO NAIL, 6 OR MORE 11/10/2013 43585-INJIFWV NAIL, 6 OR MORE 02/16/2014 83665-SIKHQJK NAIL, 6 OR MORE 05/18/2014 12937-TGHKWGG NAIL, 6 OR MORE 08/17/2014 09203-SWYZTNA NAIL, 6 OR MORE 11/16/2014 74728-YSOKSWK NAIL, 6 OR MORE 02/15/2015 85494-DQZEQER NAIL, 6 OR MORE 05/10/2015 45393-EQWAUUB NAIL, 6 OR MORE 08/09/2015 20806-HNXCDCR NAIL, 6 OR MORE 11/07/2015 39843-RJTITIQ NAIL, 6 OR MORE 02/06/2016 35971-AWMKEZV NAIL, 6 OR MORE 05/07/2016 04735-GMLDDRK NAIL, 6 OR MORE 08/06/2016 74969-SWXLMGP NAIL, 6 OR MORE 11/05/2016 43562-MAGNWTT NAIL, 6 OR MORE 02/04/2017 52133-RZOBPNM NAIL, 6 OR MORE 05/06/2017 11529-UWOKQWB NAIL, 6 OR MORE 08/06/2017 05659-KHTLQZC NAIL, 6 OR MORE 11/09/2017 56019-MKDFRJI NAIL, 6 OR MORE 02/08/2018 86139-TGFAWEB NAIL, 6 OR MORE 05/10/2018 01403-MKRWYYY NAIL, 6 OR MORE 08/11/2018 35603-VNTIKWI NAIL, 6 OR MORE 11/11/2018 78721-GOBPBVC NAIL, 6 OR MORE 02/10/2019 93033-RFSGCXK NAIL, 6 OR MORE 05/19/2019 20323-RHMWEEC NAIL, 6 OR MORE 10/03/2019 24115-FHVXNRP NAIL, 6 OR MORE 01/02/2020 47392-JPGKMCM NAIL, 6 OR MORE 03/29/2020 26697-OECVQAZ NAIL, 6 OR MORE 07/09/2020 54524-GBPFSDU NAIL, 6 OR MORE 10/08/2020 85656-TOCAMGG NAIL, 6 OR MORE 01/10/2021 87835-JFHACMC NAIL, 6 OR MORE 04/10/2021 59606-QNETIGP NAIL, 6 OR MORE 07/11/2021 76662-ADUBJZV NAIL, 6 OR MORE 10/14/2021 11963-QWDPFOF NAIL, 6 OR MORE 01/15/2022 19729-OOLRCGL NAIL, 6 OR MORE 04/23/2022 63369-MGSHNXX NAIL, 6 OR MORE 09/03/2022 58459-VRSUFEX NAIL, 6 OR MORE 11/17/2022 76235-AMUHHOJ NAIL, 6 OR MORE 02/16/2023 18243-WVMAXZY NAIL, 6 OR MORE 05/18/2023 86656-YFKOWYS NAIL, 6 OR MORE 08/17/2023 05598-MWGFPPZ NAIL, 6 OR MORE 11/16/2023 44967-OJRQICV NAIL, 6 OR MORE 02/15/2024 67742-EWIYVPZ NAIL, 6 OR MORE 05/19/2024 88280-SXWMAVC NAIL, 6 OR MORE 11/10/2024 57106-IEBJXIR NAIL, 6 OR MORE 02/23/2025 41841-Qdmw Destruction, -02/15/2015 45282-Nqom Destruction, 07-1911/16/2014 58949-Bbqr Destruction, 07-1908/17/2014 81660-Aoqg Destruction, 07-1906/12/2011 72122-Olgg Destruction, 07-1905/18/2014 43768-Wham Destruction, 07-1906/17/2012 76087-Hpei Destruction, 07-1903/18/2012 85223-Dmby Destruction, 07-1912/18/2011 14716-Auiw Destruction, 07-1909/11/2011 12173-Kkfl Destruction, 07-1903/27/2011 94783-Gszpmjyq Plate 06/12/2011 81263-Iwclwiva Plate 09/11/2011 87238-Ojzixiwd Plate 12/18/2011 79359-Hmfchrii Plate 03/18/2012 64276-Diwugjnd Plate 06/17/2012 14015-Ovtahtwi Plate 05/18/2014 51074-Grhwwduh Plate 02/16/2014 83151-Ytxlebfj Plate 11/10/2013 22979-Yqfwslaj Plate 08/18/2013 00748-Wkydswic Plate 05/19/2013 46079-Jkafwxjm Plate 02/10/2013 13178-Lmxcbjay Plate 11/11/2012 83673-Hchavnnr Plate 08/17/2014 95125-Vpbjtuba Plate 11/16/2014 41481-Keyttiiu Plate 02/15/2015 44519-Ulrxurqj Plate 08/09/2015 23874-Qhetkvma Plate 05/10/2015 07982-Rmgmmqjw Plate 11/11/2018 22980-Yixfxyxp Plate 08/11/2018 08314-Zrlywwhi Plate 05/10/2018 44439-Mfcuxjcx Plate 08/06/2017 74863-Jcklsqhi Plate 11/17/2022 61028-Dwlweryj Plate 09/03/2022 64655-Iulzfkue Plate 04/23/2022 97770-Cehdsptc Plate 01/15/2022 79458-Buuszgvy Plate 10/14/2021 59821-Dizlemaw Plate 07/11/2021 38124-Xisvvbmp Plate 04/10/2021 85521-Bctupvqk Plate 01/10/2021 80587-Xkbitjvp Plate 10/08/2020 94639-Bxrsfuzr Plate 07/09/2020 25058-Fgxhqtqj Plate 03/29/2020 61921-Qmptofpc Plate 01/02/2020 52307-Uzavttld Plate 10/03/2019 20910-Xgitehnj Plate 05/19/2019 98911-Vcxycbie Plate 02/10/2019 77374-Pagfekyb Plate Each Additional 55420-Qkibsega Plate Each Additional 10/2020 77132-Pbvhmfmd Plate Each Additional 11/2020 95787-Juiayeqc Plate Each Additional 02/2021 93256-Chclbyto Plate Each Additional 11/2014 15366-Okkpqrrp Plate Each Additional 10/2015 03687-Pnyjbwba Plate Each Additional 64304-Rsytqilv Plate Each Additional 80162-Qxffnujh Plate Each Additional 06/2015 34451-Fhkhhrbw Plate Each Additional 42059-Atiiazdz Plate Each Additional 02/2014 94692-Xjydnfrs Plate Each Additional 44891-Reuvdusk Plate Each Additional 70729-Nmpdorpy Plate Each Additional 31037-Rsxjdgvz Plate Each Additional 02/2012 37792-NOI 01/24/2021 51945-ZBW 02/01/2025 78123- Debride <25 sq cm 10/08/2020 12126-PICDYOW SKIN/TISSUE 02/07/2021 04873-ECTRRVK SKIN/TISSUE 02/23/2025 24810 I&D ABSCESS- SIMPLE,SINGLE 024 56711 I&D ABSCESS- SIMPLE,SINGLE 011 86015-KPUL SKIN LESIONS, 2 TO 4 02/24/20 25 63508-ZKVU SKIN LESIONS, 2 TO 4 11/18/19 23 41107-DRYZ SKIN LESIONS, 2 TO 4 02/17/20 23 25127-DZDN SKIN LESIONS, 2 TO 4 08/17/19 24 73686-UAXT SKIN LESIONS, 2 TO 4 05/18/20 23 23361-AOKB SKIN LESIONS, 2 TO 4 11/11/19 25 51906-KITO SKIN LESIONS, 2 TO 4 05/19/20 24 00309-FHMJ SKIN LESIONS, 2 TO 4 02/15/20 24 70214-SHQF SKIN LESIONS, 2 TO 4 11/16/19 24 84083-JYDI SKIN LESIONS, 2 TO 4 09/04/19 23 86313-Afrf. Subungual Hematoma 3 Next Appt Details Provider Name:Gume Salas , 06/08/2025 08:45:00 AM, [address] [facility], [address], [place], [address], Insurance Providers Payer Name Payer Address Payer Phone Subscriber Number Group Number Insured Name Patient Relationship to Insured Coverage Start Date Coverage End Date Medicare [facility] [employer] [address] [place] [address] [id number] Telly Silverman Self - patient is the insured 6 [employer] [address] [place] [address] [id number] Telly Silverman Self - patient is the [...]
== END 2025-05-11 11:25 | disposition home or self-care (01) ==
LOC: HO.HUSH 10:43
PROVIDERS: PCP Internal Medicine; Visit Provider Nurse Practitioner Family
DX: R35.1 Nocturia (principal); N32.0 Bladder-neck obstruction; R39.11 Hesitancy of micturition; Z13.9 Encounter for screening, unspecified
CPT/HCPCS: 99213

== ENCOUNTER → 2025-05-11 10:42 | Outpatient (BNVA) | payer MEDICARE, SELFPAY | PROVIDERS: PCP Internal Medicine; Visit Provider Nurse Practitioner Family | DX: R97.20 Elevated prostate specific antigen [PSA] (principal); N32.0 Bladder-neck obstruction; R39.11 Hesitancy of micturition; R35.1 Nocturia; Z79.82 Long term (current) use of aspirin; Z87.891 Personal history of nicotine dependence | CPT/HCPCS: 51798; 81003; 99212 ==